=== PATIENT | male | born 1955 | race Two or more races ===

== ENCOUNTER → 2017-02-14 | Outpatient (CLI) | payer OTHER ==
[~2017-02-14] MED LIST: LISI40TA OR
== END | disposition home or self-care (01) ==
LOC: LAB 07:44
DX: R19.7 Diarrhea, unspecified (principal)
CPT/HCPCS: 87045; 87177; 87899

== ENCOUNTER → 2017-03-30 | Outpatient (CLI) | payer OTHER ==
[2017-03-30 07:43] LABS: Basophils # (auto) 0 uL; Basophils % (auto) 0.3 % (0.0-2.0); Eosinophils # (auto) 0.1 uL; Eosinophils % (auto) 1.1 % (0.0-7.0); Hematocrit 44.1 % (41.0-53.0); Lymphocytes # (auto) 1.7 uL; Lymphocytes % (auto) 25.4 % (10.0-50.0); Mean Corpuscular Hemoglobin 28.5 pg (28.0-32.0); Mean Corpuscular Hgb Conc. 34.1 g/dL (32.0-36.0); Mean Corpuscular Volume 83.6 fL (80.0-100.0); Monocytes # (auto) 0.6 uL; Monocytes % (auto) 9.6 % (0.0-12.0); Neutrophils # (auto) 4.2 uL; Neutrophils % (auto) 63.6 % (37.0-80.0); Nucleated Red Blood Cells % 0.3 %; Platelet Count (auto) 151 10^3/uL (140-450); Red Blood Cells 5.28 10^6/uL (4.5-5.90); Red Cell Distribution Width 13.1 % (11.8-14.3); White Blood Cell 6.6 10^3/uL (4.4-10.8)
[2017-03-30 08:24] LABS: Albumin 3.7 g/dL (3.4-5.0); BUN/Creatinine Ratio 14.2; Bilirubin, Total 0.6 mg/dL (0.2-1.0); Calcium 8.9 mg/dL (8.5-10.1); Potassium 3.9 mmol/L (3.5-5.1); Total Protein 7.8 g/dL (6.4-8.2)
[2017-03-30 09:01] LABS: Urine Bacteria NONE SEEN /hpf (None Seen); Urine Blood Negative /uL (Negative); Urine Mucus FEW (None Seen); Urine WBC <1 /hpf (0 - 3)
[2017-03-30 11:55] LABS: Free T4 (Free Thyroxine) 1.19 ng/dL (0.89-1.76)
[2017-03-30 11:56] LABS: Prostate Specific Antigen 1.75 ng/mL (0.0-4.0)
== END | disposition home or self-care (01) ==
LOC: LAB 06:17
PROVIDERS: ATTEND Internal Medicine
DX: E11.9 Type 2 diabetes mellitus without complications (principal); I10 Essential (primary) hypertension; N40.0 Benign prostatic hyperplasia without lower urinary tract symptoms
CPT/HCPCS: 36415; 80053; 80061; 81001; 82043; 82607; 83036; 84153; 84439; 84443; 85025; 85652; 86900; 86901

== ENCOUNTER → 2017-09-20 | Outpatient (CLI) | payer OTHER | END | disposition home or self-care (01) | LOC: LAB 07:14 | PROVIDERS: ATTEND Internal Medicine | DX: E11.9 Type 2 diabetes mellitus without complications (principal); I10 Essential (primary) hypertension | CPT/HCPCS: 36415; 83036 ==

== ENCOUNTER → 2017-12-31 | Outpatient (CLI) | payer OTHER ==
[2017-12-31 08:49] LABS: Calcium 8.4 mg/dL (8.5-10.1); Potassium 4.2 mmol/L (3.5-5.1)
[2017-12-31 08:54] LABS: Albumin 3.6 g/dL (3.4-5.0); BUN/Creatinine Ratio 17.3; Bilirubin, Total 0.5 mg/dL (0.2-1.0); Total Protein 7.4 g/dL (6.4-8.2)
== END | disposition home or self-care (01) ==
LOC: LAB 07:31
PROVIDERS: ATTEND Internal Medicine
DX: E11.9 Type 2 diabetes mellitus without complications (principal); I10 Essential (primary) hypertension
CPT/HCPCS: 36415; 80053; 83036

== ENCOUNTER → 2018-04-29 | Outpatient (CLI) | payer OTHER ==
[2018-04-29 07:40] LABS: Urine WBC None Seen /hpf (0 - 3)
[2018-04-29 07:55] LABS: Basophils # (auto) 0 uL; Basophils % (auto) 0.4 % (0.0-2.0); Eosinophils # (auto) 0.1 uL; Eosinophils % (auto) 1.7 % (0.0-7.0); Hematocrit 43.8 % (41.0-53.0); Hemoglobin 14.8 g/dL (13.5-17.5); Lymphocytes # (auto) 1.6 uL; Mean Corpuscular Hemoglobin 28.9 pg (28.0-32.0); Mean Corpuscular Hgb Conc. 33.8 g/dL (32.0-36.0); Mean Corpuscular Volume 85.6 fL (80.0-100.0); Monocytes # (auto) 0.5 uL; Monocytes % (auto) 8.7 % (0.0-12.0); Neutrophils # (auto) 3.3 uL; Neutrophils % (auto) 60.2 % (37.0-80.0); Nucleated Red Blood Cells % 0.2 %; Platelet Count (auto) 134 10^3/uL (140-450); Red Blood Cells 5.11 10^6/uL (4.5-5.90); Red Cell Distribution Width 14.5 % (11.8-14.3); White Blood Cell 5.5 10^3/uL (4.4-10.8)
[2018-04-29 08:13] LABS: Urine Bacteria NONE SEEN /hpf (None Seen); Urine Blood Negative /uL (Negative); Urine Specific Gravity 1.012 (1.001-1.035)
[2018-04-29 08:30] LABS: Albumin 3.6 g/dL (3.4-5.0); BUN/Creatinine Ratio 10.3; Calcium 8.8 mg/dL (8.5-10.1); Potassium 4.4 mmol/L (3.5-5.1)
[2018-04-29 08:35] LABS: Bilirubin, Total 0.4 mg/dL (0.2-1.0); Total Protein 7.7 g/dL (6.4-8.2)
[2018-04-29 10:06] LABS: Free T4 (Free Thyroxine) 1.03 ng/dL (0.89-1.76); Prostate Specific Antigen 2.13 ng/mL (0.0-4.0)
== END | disposition home or self-care (01) ==
LOC: LAB 07:17
PROVIDERS: ATTEND Internal Medicine
DX: E53.8 Deficiency of other specified B group vitamins (principal); E11.21 Type 2 diabetes mellitus with diabetic nephropathy; I10 Essential (primary) hypertension
CPT/HCPCS: 36415; 80053; 80061; 81001; 82043; 82607; 83036; 84153; 84439; 84443; 85025; 85652

== ENCOUNTER → 2018-11-08 | Outpatient (CLI) | payer OTHER ==
[2018-11-08 08:55] LABS: Potassium 4.2 mmol/L (3.5-5.1)
[2018-11-08 09:01] LABS: Albumin 3.8 g/dL (3.4-5.0); BUN/Creatinine Ratio 12.3; Bilirubin, Total 0.8 mg/dL (0.2-1.0); Total Protein 7.3 g/dL (6.4-8.2)
== END | disposition home or self-care (01) ==
LOC: LAB 08:07
PROVIDERS: ATTEND Internal Medicine
DX: E11.9 Type 2 diabetes mellitus without complications (principal); E53.8 Deficiency of other specified B group vitamins
CPT/HCPCS: 36415; 80053; 82607; 82785; 83036; 83615

== ENCOUNTER 2018-12-26 22:03 | Inpatient (IN) | payer OTHER, MEDICAID ==
[2018-12-26] VITALS (11 sets, daily range): BP systolic 85–130; BP diastolic 47–75
[~2018-12-26] VITALS: Ht 182.9 cm; Wt 79.2 kg
--- NOTE | 2018-12-26 21:35 | NUR ---
Admit to ICU from ER on vent CHARLIE TAO admitted to ICU via gurney on front desk monitor, intubated and being ventilated by BANNER portable ventilator. Patient transfered to bed, connected to mechanical ventilator by therapist, ANDRIY at bedside. Patient connected to ICU monitoring, weighed by bedscale, oriented to Fly Mcdermott RN primary RN, unit, ventilator and sedation.
--- NOTE | 2018-12-26 21:55 | NUR ---
Admission Assessment Patient has a trach, 6 Margaret vent settings are AC 14 tv550 FIO2 35 peep of 5. Patient opens eyes and withdrawals to pain but does not follow commands, on no sedation. Eyes are 3 and fixed. positive gag and cough. NSR 78 and BP 95/48 no pressures. RT hand 22g and LT food 20g flushed and patent. Rash noted to bulmaro-area. right scalp incision site has 9 chip. right ear incision site has 3 chip. both clean dry and intact. peg tube in place, clean dry and patent. for more information see interventions. bed set to lowest position. all fall and safety precautions in place.
--- NOTE | 2018-12-26 22:00 | NUR ---
Paged Hospitalist for admission
--- NOTE | 2018-12-26 22:15 | NUR ---
Family at bedside Patsy and 5 other family members at bedside, updated on patient status. all questions addressed at this time.
--- NOTE | 2018-12-26 22:30 | NUR ---
Re-paged Hospitalist.
--- NOTE | 2018-12-26 23:36 | NUR ---
[employer] PRODUCER east at bedside updated on patient status
[2018-12-26] MEDS ORDERED: cefTAZidime 1 GM in SODIUM CHL 0.9% 50 ML IV ONE (23:45)
[2018-12-27] VITALS (98 sets, daily range): BP systolic 83–162; BP diastolic 48–91
[2018-12-27] MEDS ORDERED: DEXTROSE (50%) 50ML SYRG IV PRN
[2018-12-27] MEDS ORDERED: MORPHINE SULF INJ 2 MG/ML SYRINGE 1ML IV PRN
[2018-12-27] MEDS ORDERED: ONDANSETRON HCL 4 MG/2 ML VIAL IV PRN
[2018-12-27] MEDS ORDERED: NITROGLYCERIN 0.4 MG SL TAB SL PRN
[2018-12-27] MEDS ORDERED: ACETAMINOPHEN 325 MG TAB PO PRN
[2018-12-27 00:53] LABS: Basophils # (auto) 0 uL; Basophils % (auto) 0.2 % (0.0-2.0); Eosinophils # (auto) 0.2 uL; Eosinophils % (auto) 1.8 % (0.0-7.0); Hematocrit 27.8 % (41.0-53.0); Hemoglobin 9.4 g/dL (13.5-17.5); Lymphocytes # (auto) 1.2 uL; Lymphocytes % (auto) 11.5 % (10.0-50.0); Mean Corpuscular Hemoglobin 30.2 pg (28.0-32.0); Mean Corpuscular Hgb Conc. 33.7 g/dL (32.0-36.0); Mean Corpuscular Volume 89.6 fL (80.0-100.0); Monocytes # (auto) 0.7 uL; Monocytes % (auto) 6.8 % (0.0-12.0); Neutrophils # (auto) 8.5 uL; Neutrophils % (auto) 79.7 % (37.0-80.0); Nucleated Red Blood Cells % 0.1 %; Platelet Count (auto) 140 10^3/uL (140-450); Red Cell Distribution Width 14.5 % (11.8-14.3); White Blood Cell 10.7 10^3/uL (4.4-10.8)
[2018-12-27] MEDS: InsuLIN REG 1unit/0.01ml Soln (100units/ml) SC SCH ×7 (00:55→23:30)
[2018-12-27] MEDS: ACCU-CHEK COMFORT CURVE STRIP VI SCH ×7 (00:55→23:30)
[2018-12-27 01:08] LABS: INR 1.02 (0.9-1.15); Partial Thromboplastin Time 29.3 sec (23.64-32.05)
[2018-12-27 01:11] LABS: Albumin 1.9 g/dL (3.4-5.0); BUN/Creatinine Ratio 31.9; Calcium 7.9 mg/dL (8.5-10.1); Potassium 3.9 mmol/L (3.5-5.1)
[2018-12-27 01:14] LABS: Bilirubin, Total 0.4 mg/dL (0.2-1.0); Total Protein 6.7 g/dL (6.4-8.2)
[2018-12-27] MEDS ORDERED: METF-371 PO (02:11)
[2018-12-27] MEDS ORDERED: METO-169 PO (02:11)
[2018-12-27] MEDS ORDERED: LOSA-39 PO (02:11)
[2018-12-27] MEDS ORDERED: HYDR50TA15 PO (02:12)
[2018-12-27] MEDS: cloNIDine HCL 0.1 MG TAB PEG SCH ×3 (05:55→21:43)
--- NOTE | 2018-12-27 07:34 | NUR ---
Dr. Trejo at bedside.
[2018-12-27] MEDS: ALBUTEROL SULF 2.5 MG/0.5ML(0.5%) NEB SOLN NEB SCH ×3 (08:00→18:30)
--- NOTE | 2018-12-27 08:25 | NUR ---
Patient transported to and from CT accompanied by the radiology nurse Coby, and RT. No distress noted.
--- NOTE | 2018-12-27 09:15 | NUR ---
Midline Placement: 18g/10cm midline inserted via right brachial vein using Ultrasound. Sterile technique utilized. Blood return obtained from lumen and flushed easily with NS using proper technique. Midline secured with saline lock; biodisc and occlusive dressing applied. Primary RN notified. Midline lot #[id number]
[2018-12-27] MEDS: cefTAZidime 2GM/NS 50 ML IV SCH ×3 (09:20→21:43)
[2018-12-27] MEDS: LOSARTAN POTASSIUM 25 MG TAB PEG SCH (09:25)
[2018-12-27] MEDS: ENOXAPARIN SOD 40 MG/0.4 ML SYRINGE SC SCH (09:25)
[2018-12-27] MEDS: HCTZ 25 MG TAB PEG SCH (09:25)
[2018-12-27] MEDS: FAMOTIDINE (10MG/ML) 2ML VL IV SCH (09:25)
[2018-12-27] MEDS: amLODIPine BESYLATE 5 MG TAB PEG SCH (09:25)
--- NOTE | 2018-12-27 11:41 | NUR ---
Dr. Elliott at bedside.
[2018-12-27] MEDS ORDERED: ACETAMINOPHEN 650 mg PER 20 mL UD ONE (11:48)
[2018-12-27] MEDS: ACETAMINOPHEN 650 mg PER 20 mL UD GT PRN ×2 (11:48→23:27)
--- NOTE | 2018-12-27 11:48 | NUR ---
Max temperature 100.1, Tylenol 650mg given per PRN orders.
--- NOTE | 2018-12-27 12:53 | NUR ---
Dr. Velez updated regarding patients status.
--- NOTE | 2018-12-27 12:53 | NUR ---
Complete bath given. Linens and gown changed.
--- NOTE | 2018-12-27 13:10 | NUR ---
Family at bedside.
[2018-12-27] MEDS ORDERED: FUROSEMIDE 20 MG/2 ML VIAL IV ONE (13:15)
--- NOTE | 2018-12-27 15:15 | NUR ---
ETCO2 MONITORING BEGAN AND READING 38.
--- NOTE | 2018-12-27 19:25 | NUR ---
Open Shift Patient has a trach, 6 Margaret vent settings are AC 14 tv550 FIO2 35 peep of 5. Patient opens eyes and withdrawals to pain but does not follow commands, on no sedation. Eyes are 3 and fixed. positive gag and cough. NSR 90's and SBP 110's no pressures. RT wrist 22g and Right upper arm Midline flushed and patent. Right scalp incision site has 9 chip. right ear incision site has 3 chip. both clean dry and intact. peg tube in place, clean dry and patent. for more information see interventions. bed set to lowest position. all fall and safety precautions in place.
--- NOTE | 2018-12-27 20:24 | NUR ---
orders received md lópez request to obtain consent for now central line and change lasix to 60mg bid Addendum: 12/27/18 at 2044 by Fly Mcdermott RN RN wrong patient
--- NOTE | 2018-12-27 20:30 | NUR ---
family at bedside updated on patient status, question addressed at this time.
--- NOTE | 2018-12-27 21:07 | NUR ---
received call from md lópez updated on patient status, new orders received.
[2018-12-27 22:05] LABS: Urine Bacteria NONE SEEN /hpf (None Seen); Urine Blood Negative /uL (Negative); Urine Mucus FEW (None Seen); Urine Specific Gravity 1.018 (1.001-1.035); Urine WBC 16 /hpf (0 - 3)
[2018-12-28] VITALS (57 sets, daily range): BP systolic 100–173; BP diastolic 55–90
[2018-12-28] MEDS: ALBUTEROL SULF 2.5 MG/0.5ML(0.5%) NEB SOLN NEB SCH ×3 (00:05→18:12)
--- NOTE | 2018-12-28 02:05 | NUR ---
Complete bed bath given used chg wipes, soap and water, and shampoo shower caps to clean patient. reassessed skin and no new break down noted.
--- NOTE | 2018-12-28 02:53 | NUR ---
Respiratory note: TRACH CARE PERFORMED WITH NO COMPLCIATIONS NOTED. NO SKIN BREAKDOWN NOTED. 4EYES OBSERVED BY PATRICIA BLAND. CHANGED KIRKPATRICK, TRACH GAUZE, INNER CANNULA, AND TRACH TIE. NO SKIN BREAKDOWN AROUND NECK. BS REMAIN COARSE. SXN WITH RETURN OF SCANT PALE/YELLOW SECRETIONS. SPO2 95%. HR 60, RR 14. NO RESP DISTRESS NOTED.
[2018-12-28] MEDS: InsuLIN REG 1unit/0.01ml Soln (100units/ml) SC SCH ×5 (03:58→20:00)
[2018-12-28] MEDS: ACCU-CHEK COMFORT CURVE STRIP VI SCH ×5 (03:58→20:09)
[2018-12-28 04:08] LABS: Basophils # (auto) 0 uL; Basophils % (auto) 0.5 % (0.0-2.0); Eosinophils # (auto) 0.3 uL; Eosinophils % (auto) 3.8 % (0.0-7.0); Hematocrit 28.3 % (41.0-53.0); Hemoglobin 9.5 g/dL (13.5-17.5); Lymphocytes # (auto) 1.1 uL; Mean Corpuscular Hemoglobin 29.9 pg (28.0-32.0); Mean Corpuscular Hgb Conc. 33.7 g/dL (32.0-36.0); Mean Corpuscular Volume 88.8 fL (80.0-100.0); Monocytes # (auto) 0.7 uL; Monocytes % (auto) 8.7 % (0.0-12.0); Neutrophils # (auto) 5.7 uL; Platelet Count (auto) 145 10^3/uL (140-450); Red Blood Cells 3.19 10^6/uL (4.5-5.90); Red Cell Distribution Width 14.5 % (11.8-14.3); White Blood Cell 7.8 10^3/uL (4.4-10.8)
[2018-12-28 04:27] LABS: Albumin 2.1 g/dL (3.4-5.0); BUN/Creatinine Ratio 35.5
[2018-12-28 04:29] LABS: Bilirubin, Total 0.5 mg/dL (0.2-1.0)
[2018-12-28] MEDS: cefTAZidime 2GM/NS 50 ML IV SCH ×3 (06:39→22:19)
[2018-12-28] MEDS: cloNIDine HCL 0.1 MG TAB PEG SCH ×3 (06:39→22:20)
--- NOTE | 2018-12-28 09:42 | NUR ---
DR. LOPEZ PAGED AWAITING CALLBACK
[2018-12-28] MEDS: FAMOTIDINE (10MG/ML) 2ML VL IV SCH (09:47)
[2018-12-28] MEDS: LOSARTAN POTASSIUM 25 MG TAB PEG SCH (09:48)
[2018-12-28] MEDS: HCTZ 25 MG TAB PEG SCH (09:48)
[2018-12-28] MEDS: amLODIPine BESYLATE 5 MG TAB PEG SCH (09:48)
[2018-12-28] MEDS: CYANOCOBALAMIN 500 MCG TAB PO SCH (09:49)
[2018-12-28] MEDS: ENOXAPARIN SOD 40 MG/0.4 ML SYRINGE SC SCH (10:00)
--- NOTE | 2018-12-28 10:09 | NUR ---
FAMILY AND DAUGHTER AT BEDSIDE. UPDATED ON PATIENT STATUS. ALL QUESTIONS AND CONCERNS ADDRESSED AT THIS TIME
--- NOTE | 2018-12-28 10:46 | NUR ---
BENEDICTX PER DR. LOPEZ HOLD LOVENOX AT THIS TIME
[2018-12-28] MEDS ORDERED: Glucerna 1.2 Cal 1Liter BOTTLE GT SCH (12:00)
[2018-12-28] MEDS ORDERED: METOPROLOL TARTRATE 1MG/1ML-5ML VIAL IV PRN (13:00)
--- NOTE | 2018-12-28 13:10 | NUR ---
WOUND CARE NOTE: Wound care in to see patient due to Low Duong score of 11 and wounds that are noted present on admission. Bedside nurse took photograph of patient's wounds upon admission for reference. Patient is 63 y/o male with admitting diagnosis of ICH. Patient with history of htn and DM. Patient is resting in ICU bed in 101. Patient is mechanically ventilated via trach. Patient appears to be in no pain using Cordero rangel Faces pain Scale. Patient noted with clean, dry, well approximated stapled incision to R head/scalp (3x3cm with 9 chip) and R posterolateral head/scalp just behind the ear (1.5cm with 3 chip). Wounds are clean and dry with intact chip, left open to air. 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 Dry linear, small scab (0.5x0.3cm) noted to patent's Rt lateral ankle,mild rashes to inner thigh. No pressure injury noted. Repositioned patient for comfort facing his left side, redistributed pressure points with pillows. Patient tolerated well. RECOMMENDATION: BID/PRN cleaning and application Barrier cream to sacrum and perineum as preventative, Dietary consult, frequent turning and repositioning schedule as condition permits, redistribute pressure points with pillows,elevate heels on pillows, continue monitoring by wound care while patient is hospitalized. Addendum: 12/28/18 at 1755 by Shikha Rogers RN Amended: Links added.
[2018-12-28] MEDS ORDERED: METOPROLOL TARTRATE 1MG/1ML-5ML VIAL IV SCH (14:00)
--- NOTE | 2018-12-28 15:21 | NUR ---
NUTRITION CONSULT/ASSESSMENT NOTES Please refer to link notes of nutrition screen form filed under the intervention section of the plan of care for further details. Est. Needs BW 96 [id number] kcal (23-25 kcal/kgBW), 96-115 gms pro (1.0-1.2 gms/kgBW d/t severe hypoalbuminemia). Will continue to monitor pertinent labs and reassess nutrient need prn Addendum: 12/28/18 at [address] Amended: Links added.
--- NOTE | 2018-12-28 15:35 | NUR ---
PATIENT TAKEN FOR CT SCAN
--- NOTE | 2018-12-28 16:01 | NUR ---
PATIENT BACK FROM CT PLACED ON ALL APPROPRIATE MONITORS
--- NOTE | 2018-12-28 16:58 | NUR ---
AGUSTINA RIZVI USING STERILE TECHNIQUE Addendum: 12/28/18 at 1726 by Otilio Rey RN WRONG PATIENT
--- NOTE | 2018-12-28 17:17 | NUR ---
URINE CULTURE SENT VIA BULLET
[2018-12-28] MEDS: FUROSEMIDE 40 MG TAB GT SCH (17:46)
[2018-12-28 18:26] LABS: Creatinine, Urine 67 mg/dL (30.0-125.0); Sodium Urine 127 mmol/L (40-220)
--- NOTE | 2018-12-28 19:09 | NUR ---
REPORT GIVEN TO IRAIS BLAND TO ASSUME CARE
--- NOTE | 2018-12-28 20:00 | NUR ---
RECIEVED PT VENTED VIA TRACH,NO SEDATION, EYES OPEN, DIFFICULT TO DETERMINE IF TRACKING OR NOT, DOES NOT FOLLOW COMMANDS, BITES DOWN DURING ORAL CARE, NO LIMB MOVEMENT, REPOSITIONED, SEE INTERVENTIONS FOR HEAD TO TOE ASSESSMENT AND VITAL SIGNS, AT BEDSIDE , UPDATE GIVEN
[2018-12-28] MEDS: ATORVASTATIN 20 MG TAB PO SCH (22:20)
[2018-12-29] VITALS (33 sets, daily range): BP systolic 102–219; BP diastolic 59–102
[2018-12-29] MEDS: ALBUTEROL SULF 2.5 MG/0.5ML(0.5%) NEB SOLN NEB SCH ×4 (00:04→18:32)
--- NOTE | 2018-12-29 02:00 | NUR ---
COMPLETE BATH GIVEN AND LINEN CHANGE,EYES OPEN, NO NEURO CHANGES, NO VENT CHANGES
[2018-12-29] MEDS: InsuLIN REG 1unit/0.01ml Soln (100units/ml) SC SCH ×6 (04:00→20:00)
[2018-12-29] MEDS: ACCU-CHEK COMFORT CURVE STRIP VI SCH ×6 (04:00→20:00)
[2018-12-29 04:35] LABS: Albumin 2.1 g/dL (3.4-5.0); Calcium 8.3 mg/dL (8.5-10.1); Potassium 3.8 mmol/L (3.5-5.1)
[2018-12-29 04:39] LABS: BUN/Creatinine Ratio 37.6; Bilirubin, Total 0.4 mg/dL (0.2-1.0); Total Protein 6.9 g/dL (6.4-8.2)
[2018-12-29] MEDS: cefTAZidime 2GM/NS 50 ML IV SCH ×3 (06:29→21:46)
[2018-12-29] MEDS: cloNIDine HCL 0.1 MG TAB PEG SCH ×3 (06:30→21:46)
--- NOTE | 2018-12-29 07:00 | NUR ---
REPORT RECEIVED FROM ORIENTOR NURSE. PATIENT RESTING IN BED AT THIS TIME WITH TRACH. RESPIRATIONS EVEN AND UNLABORED. NO SIGNS OF ACUTE DISTRESS NOTED. BED IN LOW POSITION. WILL CONTINUE TO MONITOR.
--- NOTE | 2018-12-29 09:45 | NUR ---
DR MALIK AT BEDSIDE TO ASSESS PATIENT AND DISCUSS PLAN OF CARE. NO NEW ORDERS AT THIS TIME.
--- NOTE | 2018-12-29 10:07 | NUR ---
DR LOPEZ AT BEDSIDE TO ASSESS PATIENT AND DISCUSS PLAN OF CARE. NO NEW ORDERS AT THIS TIME.
[2018-12-29] MEDS: FUROSEMIDE 40 MG TAB GT SCH (10:09)
[2018-12-29] MEDS: FAMOTIDINE (10MG/ML) 2ML VL IV SCH (10:09)
[2018-12-29] MEDS: amLODIPine BESYLATE 5 MG TAB PEG SCH (10:10)
[2018-12-29] MEDS: LOSARTAN POTASSIUM 25 MG TAB PEG SCH (10:10)
[2018-12-29] MEDS: CYANOCOBALAMIN 500 MCG TAB PO SCH (10:41)
--- NOTE | 2018-12-29 11:01 | NUR ---
DR SAHU AT BEDSIDE TO ASSESS PATIENT AND DISCUSS PLAN OF CARE.
--- NOTE | 2018-12-29 11:02 | NUR ---
DR MALIK AT BEDSIDE TO ASSESS PATIENT AND DISCUSS PLAN OF CARE. NO NEW ORDERS AT THIS TIME. Addendum: 12/29/18 at 2000 by Lynnette Burns RN WRONG PATIENT
--- NOTE | 2018-12-29 11:02 | NUR ---
DR TEJEDA AT BEDSIDE TO ASSESS PATIENT AND DISCUSS PLAN OF CARE. NO NEW ORDERS AT THIS TIME.
[2018-12-29] MEDS: ATORVASTATIN 20 MG TAB PO SCH (21:46)
[2018-12-30] VITALS (27 sets, daily range): BP systolic 72–210; BP diastolic 57–99
[2018-12-30] MEDS: ALBUTEROL SULF 2.5 MG/0.5ML(0.5%) NEB SOLN NEB SCH ×4 (00:01→18:25)
[2018-12-30 03:41] LABS: Basophils # (auto) 0 uL; Basophils % (auto) 0.3 % (0.0-2.0); Eosinophils # (auto) 0.2 uL; Eosinophils % (auto) 3.9 % (0.0-7.0); Hemoglobin 9.9 g/dL (13.5-17.5); Lymphocytes # (auto) 1.2 uL; Lymphocytes % (auto) 18.2 % (10.0-50.0); Mean Corpuscular Hgb Conc. 34.3 g/dL (32.0-36.0); Mean Corpuscular Volume 87.6 fL (80.0-100.0); Monocytes # (auto) 0.6 uL; Monocytes % (auto) 8.9 % (0.0-12.0); Neutrophils # (auto) 4.4 uL; Neutrophils % (auto) 68.7 % (37.0-80.0); Nucleated Red Blood Cells % 0.1 %; Platelet Count (auto) 161 10^3/uL (140-450); Red Blood Cells 3.31 10^6/uL (4.5-5.90); Red Cell Distribution Width 14.2 % (11.8-14.3); White Blood Cell 6.4 10^3/uL (4.4-10.8)
[2018-12-30 03:52] LABS: Albumin 2.2 g/dL (3.4-5.0); BUN/Creatinine Ratio 35.2; Calcium 8.2 mg/dL (8.5-10.1)
[2018-12-30 03:54] LABS: Bilirubin, Total 0.3 mg/dL (0.2-1.0); Total Protein 7.1 g/dL (6.4-8.2)
[2018-12-30] MEDS: InsuLIN REG 1unit/0.01ml Soln (100units/ml) SC SCH ×6 (04:00→20:31)
[2018-12-30] MEDS: ACCU-CHEK COMFORT CURVE STRIP VI SCH ×6 (04:00→20:30)
[2018-12-30] MEDS: cefTAZidime 2GM/NS 50 ML IV SCH ×2 (05:01→14:06)
[2018-12-30] MEDS: cloNIDine HCL 0.1 MG TAB PEG SCH ×3 (05:52→21:41)
--- NOTE | 2018-12-30 07:25 | NUR ---
SHIFT OPENING NOTE PATIENT ON MECHANICAL VENTILATOR WITH TRACHEOSTOMY, NO SEDATION AT THIS TIME. PUPILS 3 AND FIXED, HYPERACTIVE COUGH AND GAG REFLEX, 02 SATURATION 97%, NO VASOPRESSORS AT THIS TIME. ABDOMEN ROUND, SOFT, AND NONTENDER, BERRIOS DRAINING CLEAR, YELLOW URINE WITH BAG FREE OF KINKS AND HUNG BELOW BLADDER, SCD'S BILATERALLY TO LOWER EXTREMITIES, SKIN INTEGRITY SEE ASSESSMENT
[2018-12-30] MEDS: CYANOCOBALAMIN 500 MCG TAB PO SCH (10:00)
[2018-12-30] MEDS: amLODIPine BESYLATE 5 MG TAB PEG SCH (10:01)
[2018-12-30] MEDS: FAMOTIDINE (10MG/ML) 2ML VL IV SCH (10:01)
[2018-12-30 10:02] LABS: Free T4 (Free Thyroxine) 0.59 ng/dL (0.89-1.76)
[2018-12-30] MEDS: FUROSEMIDE 40 MG TAB GT SCH (10:02)
[2018-12-30] MEDS: LOSARTAN POTASSIUM 25 MG TAB PEG SCH (10:02)
[2018-12-30 10:03] LABS: Folate (Folic Acid) 13.42 ng/mL (5.38-24)
--- NOTE | 2018-12-30 12:02 | NUR ---
Nutrition Follow-up Notes Wt.: 98.0 kg today. Pt's on vent via trach, asleep, no immediate family member at bedside during rounds earlier. Pt's no signs of distress noted earlier, currently NPO with EN support of Glucerna 1.2 Roberto @ 70 ml/hr via PEG tube providing 2016 kcal, 101 gms pro and 1352 ml free water, tolerates feeing had 25 ml residuals noted by RN this morning. Pt with adequate EN support d/t high initiation rate delivery of concentrated formula aeb current EN infusion meets 84% to 91% of est caloric needs and 88% to 105% of est caloric needs. Noted pt's for active Pulmonary and Neurology consults. Est. Needs BW 96 [id number] kcal (23-25 kcal/kgBW), 96-115 gms pro (1.0-1.2 gms/kgBW d/t severe hypoalbuminemia). Will continue to monitor pertinent labs and reassess nutrient need prn Labs: Gluc 168 H, BUN 38 H, Ca 8.2 L, Alb 2.2 L. Skin: Duong scale 12, high risk, pt's right scalp incision dry and intact per documentation spec. Pls refer to latest emery grinder's notes for further details re: tx plans. GI: Pt's no bowel activity since 12/26/18 per documentation spec. PES: Increased nutrient needs r/t acute/chronic medical condition aeb with trach, severe hypoalbuminemia, NPO with EN support via PEG tube Altered nutrition related lab values r/t current/chronic medical condition aeb elev BUN, hypocalcemia, hyperglceymia and severe hypoalb Will continue to monitor NPO status, EN tolerance, skin status, pertinent labs and weight trend. F/u in 2 to 3 days. Rec.: 1.) If still NPO with EN support, consider Glucerna 1.2 Roberto @ 75 ml/hr goal rate as tolerated if medically appropriate. 2.) If Albumin continues trending down, consider Prostat 1 pkt BID. 3.) Consider daily MVI with minerals and Asc acid 500 mgs BID prn. 4.) Advance gradually to oral diet when medically appropriate. 5.) Refer pt to CDE/RD for further nutrition education and weight monitoring upon discharge. 5.) Continue current plan of care.
--- NOTE | 2018-12-30 12:10 | NUR ---
DR. WATERS AT BEDSIDE SPOKE WITH IN GREAT DETAIL WITH ASSISTANCE FROM [facility]. PER JUANITO SHE WOULD LIKE MORE INFORMATION REGARDING HOSPICE CARE
--- NOTE | 2018-12-30 12:51 | NUR ---
PARTIAL LINEN CHANGE PERFORMED AT THIS TIME
[2018-12-30] MEDS: ERGOCALCIFEROL 50,000 UNIT(1.25MG) CAP PO SCH (12:55)
--- NOTE | 2018-12-30 14:35 | NUR ---
DR. LOPEZ AT BEDSIDE
[2018-12-30] MEDS: MEROPENEM 1GM IVPB 100 ML IV SCH (17:18)
--- NOTE | 2018-12-30 17:53 | NUR ---
REPORT GIVEN TO OMAR BLAND TO ASSUME CARE
--- NOTE | 2018-12-30 18:15 | NUR ---
HOSPICE AT BEDSIDE
--- NOTE | 2018-12-30 18:15 | NUR ---
JUANITO UPDATED PATIENTS MOVING TO ROOM 266
--- NOTE | 2018-12-30 18:20 | NUR ---
PATIENT TRANSFERRED TO ROOM 266 VIA ACLS GUIDELINES
--- NOTE | 2018-12-30 18:25 | NUR ---
PATIENT RECEIVED Patient received with RN AND RT bedside. Patient is in bed, trached, with the ventilator next to him. Patients lungs are clear on auscultation, pupils are 3mm fixed, patient has chip on his scalp, 3 behind his right ear and 9 on the top of right side, as well as 10 chip on his abd.
--- NOTE | 2018-12-30 19:21 | NUR ---
Open Shift Patient has a trach, in no signs of respiratory distress. Opens eyes and withdrawals to pain but does not follow commands, on no sedation. Eyes are 3 and fixed. positive gag and cough. NSR 60's and SBP 140's no pressures. RT wrist 22g and Right upper arm Midline flushed and patent. peg tube in place, clean dry and patent running Jevity at 70 with no residual. For more information see interventions. bed set to lowest position. all fall and safety precautions in place.
--- NOTE | 2018-12-30 19:21 | NUR ---
CLOSING Report given to Erick BLAND.
--- NOTE | 2018-12-30 20:00 | NUR ---
at bedside updated on patient status, all questions addressed at this time.
[2018-12-30] MEDS: ATORVASTATIN 20 MG TAB PO SCH (21:40)
[2018-12-31] VITALS (30 sets, daily range): BP systolic 101–181; BP diastolic 54–98
[2018-12-31] MEDS: ALBUTEROL SULF 2.5 MG/0.5ML(0.5%) NEB SOLN NEB SCH ×4 (00:07→19:37)
[2018-12-31] MEDS: ACCU-CHEK COMFORT CURVE STRIP VI SCH ×6 (00:28→20:00)
[2018-12-31] MEDS: InsuLIN REG 1unit/0.01ml Soln (100units/ml) SC SCH ×6 (00:28→20:00)
[2018-12-31] MEDS: MEROPENEM 1GM IVPB 100 ML IV SCH ×4 (01:00→17:33)
--- NOTE | 2018-12-31 03:21 | NUR ---
bed bath given Full bed bath given. skin reassessed and no new break down noted.
[2018-12-31] MEDS: cloNIDine HCL 0.1 MG TAB PEG SCH ×3 (06:04→22:00)
[2018-12-31 06:44] LABS: Albumin 2.3 g/dL (3.4-5.0); Calcium 8.7 mg/dL (8.5-10.1); Potassium 3.9 mmol/L (3.5-5.1)
[2018-12-31 06:47] LABS: Bilirubin, Total 0.3 mg/dL (0.2-1.0); Total Protein 7.1 g/dL (6.4-8.2)
--- NOTE | 2018-12-31 07:10 | NUR ---
OPENING NOTE RECEIVED SHIFT REPORT AND ASSUMED CARE OF PT FROM PATRICIA BLAND
--- NOTE | 2018-12-31 09:05 | NUR ---
assessment Patient is a 63 year old male. Per patients daughter Soraya prior to admission patient lived home with family and functioned with assistance. Per Soraya Patient will need more help once discharged home. I informed Soraya via telephone patient has an order for hospice evaluation. Per Soraya Elliott has spoken to her and patients regarding hospice. Dr Elliott has suggested [facility]. I have offered Soraya a list of medicare providers. Per Soraya she wants to speak to [facility]. Bora is to meet with family at bedside at 10am. I will meet with Soraya at bedside to have her sign choice letter. Soraya verbalized understanding and agreed to discharge plan home on hospice. Addendum: 12/31/18 at 1033 by Heaven GIANG Amended: Links added.
[2018-12-31] MEDS: FAMOTIDINE (10MG/ML) 2ML VL IV SCH (10:03)
[2018-12-31] MEDS: CYANOCOBALAMIN 500 MCG TAB PO SCH (10:04)
[2018-12-31] MEDS: LOSARTAN POTASSIUM 25 MG TAB PEG SCH (10:04)
[2018-12-31] MEDS: FUROSEMIDE 40 MG TAB GT SCH (10:05)
[2018-12-31] MEDS: amLODIPine BESYLATE 5 MG TAB PEG SCH (10:05)
[2018-12-31] MEDS ORDERED: CYANOCOBALAMIN 500 MCG TAB PO ONE (12:30)
[2018-12-31] MEDS: ACETAMINOPHEN 650 mg PER 20 mL UD GT PRN (12:43)
--- NOTE | 2018-12-31 15:20 | NUR ---
re-assessment [facility] met with family at bedside. Soraya signed choice letter. Waiting on discharge now. Addendum: 12/31/18 at 1523 by Heaven GIANG Amended: Links added.
--- NOTE | 2018-12-31 19:20 | NUR ---
CLOSING NOTE SHIFT REPORT GIVEN AND CARE ENDORSED TO WAYNE BLAND
--- NOTE | 2018-12-31 19:30 | NUR ---
Opening Shift Note Received pt on mechanical ventilator with shylee trach size 6. Pt not on any sedation, pupils are 3 and fixed. Pt opens eyes spontaneously but does not follow commands. Hyperactive cough/gag seen. Full assessment done see interventions. Duff catheter draining to gravity, secured below bladder and free of kinks. Bed locked in lowest position all alarms on and audible. Pt in full view of RN. No indications of pain noted.
[2018-12-31] MEDS: ATORVASTATIN 20 MG TAB PO SCH (22:03)
[2019-01-01] VITALS (18 sets, daily range): BP systolic 105–178; BP diastolic 4–87
[2019-01-01] MEDS: ALBUTEROL SULF 2.5 MG/0.5ML(0.5%) NEB SOLN NEB SCH ×4 (00:52→19:12)
[2019-01-01] MEDS: MEROPENEM 1GM IVPB 100 ML IV SCH ×3 (01:00→16:47)
[2019-01-01] MEDS: InsuLIN REG 1unit/0.01ml Soln (100units/ml) SC SCH ×6 (04:00→20:36)
[2019-01-01] MEDS: ACCU-CHEK COMFORT CURVE STRIP VI SCH ×6 (04:00→20:32)
--- NOTE | 2019-01-01 05:20 | NUR ---
ELIMINATION PT HAD LARGE SOFT BM. CLEANSED PT AND GAVE FULL BED BATH. LINENS CHANGED. ORAL CARE RENDERED. PT TOLERATED WELL.
[2019-01-01 05:45] LABS: Albumin 2.4 g/dL (3.4-5.0); Calcium 8.6 mg/dL (8.5-10.1)
[2019-01-01 05:50] LABS: BUN/Creatinine Ratio 39.5; Bilirubin, Total 0.3 mg/dL (0.2-1.0); Total Protein 7.2 g/dL (6.4-8.2)
[2019-01-01] MEDS: cloNIDine HCL 0.1 MG TAB PEG SCH ×3 (06:00→21:48)
--- NOTE | 2019-01-01 07:30 | NUR ---
Opening Shift Note Assumed care of patient laying in bed, opens eye spontaneously but not on commands, aphasic. No S/S of distress/SOB or pain. Patient on tracheostomy to mechanical ventilator AC mode, rate 14, TV 550, PEEP 8, FIO2 30%, oxygen saturation 95%. Glucerna running at 75 ml/hr via PEG, patient tolerating well, 5ml residual feeding noted. See interventions for complete assessment. Bed locked on low position, padded side rails up x2, bed alarms on at all times, will continue to monitor for changes Q1hr and PRN.
--- NOTE | 2019-01-01 08:00 | NUR ---
Dr Velez at bedside, updated on patient's status. Patient seen and examined. No new orders at this time.
[2019-01-01] MEDS: FUROSEMIDE 40 MG TAB GT SCH (09:11)
[2019-01-01] MEDS: FAMOTIDINE (10MG/ML) 2ML VL IV SCH (09:11)
[2019-01-01] MEDS: LOSARTAN POTASSIUM 25 MG TAB PEG SCH (09:12)
[2019-01-01] MEDS: CYANOCOBALAMIN 500 MCG TAB PO SCH (09:13)
[2019-01-01] MEDS: amLODIPine BESYLATE 5 MG TAB PEG SCH (09:13)
--- NOTE | 2019-01-01 10:00 | NUR ---
WOUND CARE NOTE: ORDERED SPECIALTY AIR BED AT THIS TIME PREVENTATIVE INTERVENTION. PATIENT TO BE PLACED, PENDING DELIVERY BY JARRETT PARDO. WOUND CARE TEAM WILL CONTINUE TO MONITOR.
--- NOTE | 2019-01-01 12:05 | NUR ---
Patient's temperature 100 axillary, cooling measures done. Will continue to monitor.
--- NOTE | 2019-01-01 12:09 | NUR ---
Patient's Patsy at bedside, updated on patient's status and POC, verbalized understanding. All question and concerns addressed.
--- NOTE | 2019-01-01 12:27 | NUR ---
Nutrition Follow-up Notes Wt.: 95.8 kg today. Pt's on vent via trach, awake, no immediate family member at bedside, no signs of distress noted when rounded this morning. Pt's currently NPO with EN support of Glucerna 1.2 Roberto @ 75 ml/hr via PEG tube providing 2160 kcal, 108 gms pro and 1449 ml free water, tolerates feeding well, had 5 ml residuals noted by RN this morning. Pt with adequate EN support d/t high initiation rate delivery of concentrated formula aeb current EN infusion meets 90% to 98% of est caloric needs and 94% to 113% of est protein needs. Est. Needs BW 96 [id number] kcal (23-25 kcal/kgBW), 96-115 gms pro (1.0-1.2 gms/kgBW d/t severe hypoalbuminemia). Will continue to monitor pertinent labs and reassess nutrient need prn Labs: Gluc 163 H, Na 146 H, Cl 110 H, BUN 45 H; Alb 2.2 L. Skin: Duong scale 12, high risk, pt's medial abdomen incision, right scalp incision dry and intact per windlasser. Pls refer to latest supervisor malt house's notes for further details re: tx plans. GI: Pt had 1 BM this morning per windlasser. PES: Increased nutrient needs r/t acute/chronic medical condition aeb with trach, severe hypoalbuminemia, NPO with EN support via PEG tube Altered nutrition related lab values r/t current/chronic medical condition aeb elev BUN, hypocalcemia, hyperglceymia and severe hypoalb Will continue to monitor NPO status, EN tolerance, skin status, pertinent labs and weight trend. F/u in 2 to 3 days. Rec.: 1.) If still NPO, continue EN support of Glucerna 1.2 Roberto @ 75 ml/hr goal rate as tolerated. 2.) If Albumin continues trending down, consider Prostat 1 pkt BID. 3.) Consider daily MVI with minerals and Asc acid 500 mgs BID prn. 4.) Advance gradually to oral diet when medically appropriate. 5.) Refer pt to CDE/RD for further nutrition education and weight monitoring upon discharge. 6.) Continue current plan of care.
--- NOTE | 2019-01-01 13:15 | NUR ---
Patient's temperature 100.1 F axillary. Will give Tylenol PRN. Will continue to monitor.
[2019-01-01] MEDS: ACETAMINOPHEN 650 mg PER 20 mL UD GT PRN (13:25)
[2019-01-01] MEDS: FREE WATER GT SCH ×3 (13:25→21:48)
--- NOTE | 2019-01-01 13:57 | NUR ---
DR. Perry to see pt and then will decide if she will write d/c order or not
--- NOTE | 2019-01-01 14:45 | NUR ---
Dr Perry at bedside, updated on patient's status. Patient seen and examined. Will carry out new orders.
--- NOTE | 2019-01-01 15:45 | NUR ---
Patient transferred from regular bed to air mattress, fall precaution in place, patient tolerated well.
--- NOTE | 2019-01-01 19:45 | NUR ---
Opening Shift Note Assumed care of patient, opens eyes spontaneously but are not reactive to light. Patient is aphasic, trach and vented. Pt does not follow commands. Left upper abd PEG tube checked for residual , 5cc noted.See interventions for complete assessment.No S/S of distress/SOB or pain. Will continue to monitor for changes Q1hr and PRN.
[2019-01-01] MEDS: ATORVASTATIN 20 MG TAB PO SCH (21:49)
[2019-01-02] VITALS (16 sets, daily range): BP systolic 106–182; BP diastolic 69–96
[2019-01-02] MEDS: ALBUTEROL SULF 2.5 MG/0.5ML(0.5%) NEB SOLN NEB SCH ×4 (00:07→19:21)
[2019-01-02] MEDS: ACCU-CHEK COMFORT CURVE STRIP VI SCH ×6 (00:10→20:07)
[2019-01-02] MEDS: InsuLIN REG 1unit/0.01ml Soln (100units/ml) SC SCH ×6 (00:19→20:07)
[2019-01-02] MEDS: MEROPENEM 1GM IVPB 100 ML IV SCH ×3 (00:20→17:09)
[2019-01-02] MEDS: FREE WATER GT SCH ×6 (02:06→21:15)
--- NOTE | 2019-01-02 02:15 | NUR ---
AM CARE COMPLETE BED BATH PROVIDED USING CHG WIPES AND WARM WASH CLOTHS. BERRIOS CARE AND ORAL CARE PROVIDED. SKIN REASSESSED AT THIS TIME : NO NEW CHANGES, SACRUM REMAINS INTACT. COMPLETE LINEN CHANGE DONE AND NEW GOWN PLACED ON PATIENT. REPOSITIONED IN BED FOR COMFORT.ASPIRATION, FALL, PRESSURE ULCER AND SEIZURE PRECAUTIONS CONTINUED.
--- NOTE | 2019-01-02 04:00 | NUR ---
Mid- Line Dressing Changes Mid line dressing change done with a sterile technique. Cleansed with chloraprep scrub/betadine. Stat lock, and bio-patch as available. Occlusive dressing applied. Patient tolerated well.
[2019-01-02] MEDS: cloNIDine HCL 0.1 MG TAB PEG SCH (06:00)
[2019-01-02 06:29] LABS: Potassium 4.1 mmol/L (3.5-5.1)
[2019-01-02 06:35] LABS: Albumin 2.4 g/dL (3.4-5.0); BUN/Creatinine Ratio 39.8; Calcium 8.7 mg/dL (8.5-10.1)
[2019-01-02 06:45] LABS: Bilirubin, Total 0.3 mg/dL (0.2-1.0); Total Protein 7.7 g/dL (6.4-8.2)
--- NOTE | 2019-01-02 06:54 | NUR ---
END OF SHIFT NOTE PATIENT RESTING IN BED WITH EYES OPEN, CONTINUES TO BE APHASIC NOT FOLLOWING COMMANDS. NO NW CHANGES NEUROLOGICALLY NOTED. NO SIGNS OF DISTRESS/SOB OR PAIN AT THIS TIME. VS WNL: POX 92, HR 71, BP 151/79. WILL CONTINUE MONITORING PATIENT AND ENDORSE CARE TO DAY SHIFT RN.
--- NOTE | 2019-01-02 07:30 | NUR ---
Opening Shift Note Assumed care of patient, awake, opens eyes spontaneously, unable to follow commands, aphasic. No S/S of distress/SOB or pain. Patient on tracheostomy connected to mechanical ventilator, saturation 92%. Glucerna running at 75 ml/hr via PEG, patient tolerating well with 5 ml residuial noted. See interventions for complete assessment. Bed locked on low position, padded side rails up x2, bed alarms on at all times, will continue to monitor for changes Q1hr and PRN.
[2019-01-02] MEDS: CYANOCOBALAMIN 500 MCG TAB PO SCH (09:54)
[2019-01-02] MEDS: LOSARTAN POTASSIUM 25 MG TAB PEG SCH (09:55)
[2019-01-02] MEDS: amLODIPine BESYLATE 5 MG TAB PEG SCH (09:56)
[2019-01-02] MEDS: FUROSEMIDE 40 MG TAB GT SCH (09:56)
[2019-01-02] MEDS: FAMOTIDINE (10MG/ML) 2ML VL IV SCH (09:57)
--- NOTE | 2019-01-02 10:48 | NUR ---
Dr Perry at bedside, updated on patient's status. Informed patient's HR drops to 50's. Patient seen and examined. Received verbal order to discontinue Catapres. Orders read back and verified. Will carry out new orders.
[2019-01-02] MEDS: hydrALAZINE HCL 20 MG/ML VL IV PRN ×2 (12:56→23:10)
--- NOTE | 2019-01-02 15:00 | NUR ---
Dr Velez at bedside, updated on patient's status. Patient seen and examined. No new orders at this time.
--- NOTE | 2019-01-02 16:00 | NUR ---
Patient's Terlton at bedside, updated on patient's status and POC. verbalized understanding. All questions and concerns addressed.
--- NOTE | 2019-01-02 19:55 | NUR ---
AT BEDSIDE SPEAKING TO REGARDING CODE STATUS AND POOR PROGNOSIS FOR THE PATIENT PATIENT'S VERBALIZES UNDERSTANDING BUT STATES SHE HAS NOT MADE A DECISION REGARDING DNR AND WOULD LIKE MORE INFORMATION ON MARCOS. WILL PLACE SOCIAL SERVICE CONSULT PER DR. LOPEZ ORDERS
[2019-01-02] MEDS: ATORVASTATIN 20 MG TAB PO SCH (21:16)
[2019-01-03] VITALS (20 sets, daily range): BP systolic 107–160; BP diastolic 59–95
[2019-01-03] MEDS: ALBUTEROL SULF 2.5 MG/0.5ML(0.5%) NEB SOLN NEB SCH ×4 (00:09→18:01)
[2019-01-03] MEDS: ACCU-CHEK COMFORT CURVE STRIP VI SCH ×6 (00:13→20:03)
[2019-01-03] MEDS: InsuLIN REG 1unit/0.01ml Soln (100units/ml) SC SCH ×6 (00:19→20:03)
[2019-01-03] MEDS: MEROPENEM 1GM IVPB 100 ML IV SCH ×3 (00:20→17:37)
[2019-01-03] MEDS: FREE WATER GT SCH ×6 (02:30→22:00)
--- NOTE | 2019-01-03 03:55 | NUR ---
AM CARE/LINEN CHANGE COMPLETE BED BATH AND LINEN CHANGE DONE. NEW GOWN PLACED ON PATIENT. ZGUARD BARRIER CREAM PLACED TO PERINEAL AREA DUE TO MILD REDNESS. OPTIFOAM TO SACRUM REMAINS INTACT.ORAL CARE PROVIDED. PATIENT REPOSITIONED IN BED FOR COMFORT/PRESSURE RELIEF. NO NEW SKIN CHANGES NOTED. CONTINUE MONITORING.
[2019-01-03 05:09] LABS: Albumin 2.5 g/dL (3.4-5.0); BUN/Creatinine Ratio 38.9; Calcium 8.6 mg/dL (8.5-10.1); Potassium 4.2 mmol/L (3.5-5.1)
[2019-01-03 05:12] LABS: Bilirubin, Total 0.3 mg/dL (0.2-1.0); Total Protein 7.8 g/dL (6.4-8.2)
--- NOTE | 2019-01-03 07:29 | NUR ---
CARE ENDORSED TO DAY SHIFT RN
--- NOTE | 2019-01-03 08:00 | NUR ---
Opening Shift Note Assumed care of patient, awake, eyes opening, didn't follow the direction. On Ventilator: AC 14, TV 550, FiO2 0.3, Peep 8, RR 16-18, STV 560-575, O2 saturation 99%. Instructed on POC, oriented with date, place and time, will continue to monitor for changes Q1hr and PRN.
--- NOTE | 2019-01-03 08:39 | NUR ---
Received a call from Heaven (PADMAJA) regarding Social service consult : possible [facility]. Patient didn't qualify for [facility], will cancel order for [facility]. SS will provide the information for SNF to his family.
[2019-01-03] MEDS: FAMOTIDINE (10MG/ML) 2ML VL IV SCH (09:20)
[2019-01-03] MEDS: CYANOCOBALAMIN 500 MCG TAB PO SCH (09:21)
[2019-01-03] MEDS: FUROSEMIDE 40 MG TAB GT SCH (09:21)
[2019-01-03] MEDS: LOSARTAN POTASSIUM 50 MG TAB PEG SCH (09:22)
[2019-01-03] MEDS: amLODIPine BESYLATE 5 MG TAB PEG SCH (09:22)
--- NOTE | 2019-01-03 09:40 | NUR ---
Position changed, no BM at this time. No PEG content noted, feed Free water as ordered, will continue to monitor and care.
--- NOTE | 2019-01-03 10:00 | NUR ---
Dr. Perry at the bedside, seen and examined patient at this time, no family at the bedside, received order for Lactulose 30 ml PEG PRN daily for constipation.
[2019-01-03] MEDS ORDERED: LACTULOSE 20Gm/30ML SOLN PEG PRN (10:15)
[2019-01-03] MEDS: hydrALAZINE HCL 20 MG/ML VL IV PRN (11:34)
--- NOTE | 2019-01-03 11:45 | NUR ---
Mouth care provided, re position at this time, elevated HOB, RR 14-20/min, O2 saturation 98-99%, no aspiration noted, no fever noted. Will continue to monitor and care.
--- NOTE | 2019-01-03 14:15 | NUR ---
Dr. Trejo at the bedside, seen patient at his time, no family at the bedside, MD stated that already talked to Dr. Velez and Dr. Perry regarding plan of care, will continue plan of care, will need to talk and discuss with his family again before changing plan of care, Will continue ventilator support, MD made aware about limitation of patient 's insurance, social service will provide the information about intermediate project manager care.
--- NOTE | 2019-01-03 14:20 | NUR ---
Nutrition Follow-up Notes Wt.: 118.0 kg Pt's on vent via trach, awake, no immediate family member at bedside, no signs of distress noted when rounded this morning. Pt's currently NPO with EN support of Glucerna 1.2 Roberto @ 75 ml/hr via PEG tube providing 2160 kcal, 108 gms pro and 1449 ml free water, tolerates feeding well, had 5 ml residuals noted by RN this morning. Pt with adequate EN support d/t high initiation rate delivery of concentrated formula aeb current EN infusion meets 90% to 98% of est caloric needs and 94% to 113% of est protein needs. Est. Needs BW 96 [id number] kcal (23-25 kcal/kgBW), 96-115 gms pro (1.0-1.2 gms/kgBW d/t severe hypoalbuminemia). Will continue to monitor pertinent labs and reassess nutrient need prn Labs: BUN 42 H, GLU 192 H, ALB 2.5 L. Skin: Duong scale 13, mod risk, pt's medial abdomen incision, right scalp incision dry and intact per documentation coordinator. Pls refer to latest dumpster operator's notes for further details re: tx plans. GI: Pt had 1 BM 01/01 per documentation coordinator. PES: Increased nutrient needs r/t acute/chronic medical condition aeb with trach, severe hypoalbuminemia, NPO with EN support via PEG tube Altered nutrition related lab values r/t current/chronic medical condition aeb elev BUN, hypocalcemia, hyperglceymia and severe hypoalb Will continue to monitor NPO status, EN tolerance, skin status, pertinent labs and weight trend. F/u in 2 to 3 days. Rec.: 1.) If still NPO, continue EN support of Glucerna 1.2 Roberto @ 75 ml/hr goal rate as tolerated. 2.) If Albumin continues trending down, consider Prostat 1 pkt BID. 3.) Consider daily MVI with minerals and Asc acid 500 mgs BID prn. 4.) Advance gradually to oral diet when medically appropriate. 5.) Refer pt to CDE/RD for further nutrition education and weight monitoring upon discharge. 6.) Continue current plan of care.
--- NOTE | 2019-01-03 15:40 | NUR ---
Mouth care provided, no BM at this time, re position provided at this time, his at the bedside, called SS to make aware that his at the bedside. Will continue to monitor and care.
--- NOTE | 2019-01-03 17:41 | NUR ---
Dr. Velez at the bedside, seen and examined patient at this time, plan of care discussed with his . Plan to wean the ventilator to CPAP then collar mask if Dr. Trejo agree with the plan and family agree with the plan. MD discussed with family more about the hospice care, will continue to monitor and care. Received order to decreased Ventilator setting: AC to 12, peep to 5.
[2019-01-03] MEDS: ATORVASTATIN 20 MG TAB PO SCH (22:00)
[2019-01-04] VITALS (17 sets, daily range): BP systolic 104–175; BP diastolic 55–105
[2019-01-04] MEDS: ALBUTEROL SULF 2.5 MG/0.5ML(0.5%) NEB SOLN NEB SCH ×4 (00:33→18:43)
[2019-01-04] MEDS: MEROPENEM 1GM IVPB 100 ML IV SCH ×3 (00:57→16:11)
[2019-01-04] MEDS: FREE WATER GT SCH ×6 (02:00→21:41)
[2019-01-04] MEDS: ACCU-CHEK COMFORT CURVE STRIP VI SCH ×6 (04:12→20:23)
[2019-01-04] MEDS: InsuLIN REG 1unit/0.01ml Soln (100units/ml) SC SCH ×6 (04:12→20:25)
[2019-01-04] MEDS ORDERED: SODIUM CHLORIDE 0.9 % NEB SOLN 3ML NEB ONE (06:37)
--- NOTE | 2019-01-04 07:30 | NUR ---
Patient hard large amount of brown soft bowel movement, given perineal care. Skin integrity assessed for any changes, noted blanchable redness on sacrum, z-guard and optifoam applied. Linens changed partially. Patient repositioned for comfort.
--- NOTE | 2019-01-04 07:30 | NUR ---
Opening Shift Note Assumed care of patient, awake, laying in bed, unable to follow commands, aphasic. No S/S of distress/SOB or pain. Patient on tracheostomy connected to mechanical ventilator, oxygen saturation 95%. See interventions for complete assessment. Bed locked on low position, padded side rails up x2, bed alarms on at all times, will continue to monitor for changes Q1hr and PRN.
[2019-01-04] MEDS: CYANOCOBALAMIN 500 MCG TAB PO SCH (09:06)
[2019-01-04] MEDS: FAMOTIDINE (10MG/ML) 2ML VL IV SCH (09:06)
[2019-01-04] MEDS: LOSARTAN POTASSIUM 50 MG TAB PEG SCH (09:07)
[2019-01-04] MEDS: amLODIPine BESYLATE 5 MG TAB PEG SCH (09:07)
[2019-01-04] MEDS: FUROSEMIDE 40 MG TAB GT SCH (09:08)
--- NOTE | 2019-01-04 11:15 | NUR ---
Dr Velez at bedside, updated on patient's status. Patient seen and examined. Will carry out new orders.
--- NOTE | 2019-01-04 11:45 | NUR ---
VENT. CHANGES MADE BY DR. MALIK WHILE AT BEDSIDE. NEW SETTINGS ARE SIMV, RATE 10, VT 550, PEEP 5, PS 8, FI02 30%. ABG TO FOLLOW IN ONE HOUR.
--- NOTE | 2019-01-04 14:30 | NUR ---
WOUND CARE NOTE: Weekly reevaluation by wound care team. Patient remains vented on the trach. Last Duong score is 12. Patient remains free of pressure injuries. Nursing to continue with previously ordered skin/wound care orders; wound care team to continue to follow while Duong <18.
--- NOTE | 2019-01-04 15:30 | NUR ---
Patient's temperature 99.8 F axillary. Cooling measures done. Will continue to monitor.
--- NOTE | 2019-01-04 17:00 | NUR ---
Patient's temperature 97.8 F axillary.
--- NOTE | 2019-01-04 17:49 | NUR ---
Dr Gonzalez at bedside, updated on patient's status. Patient seen and examined. Will carry out new orders.
[2019-01-04] MEDS: ATORVASTATIN 20 MG TAB PO SCH (21:41)
[2019-01-05] VITALS (16 sets, daily range): BP systolic 100–164; BP diastolic 53–76
[2019-01-05] MEDS: InsuLIN REG 1unit/0.01ml Soln (100units/ml) SC SCH ×6 (00:30→20:00)
[2019-01-05] MEDS: ACCU-CHEK COMFORT CURVE STRIP VI SCH ×6 (00:30→20:00)
[2019-01-05] MEDS: ALBUTEROL SULF 2.5 MG/0.5ML(0.5%) NEB SOLN NEB SCH ×4 (00:39→18:37)
[2019-01-05] MEDS: MEROPENEM 1GM IVPB 100 ML IV SCH ×3 (01:30→16:47)
[2019-01-05] MEDS: FREE WATER GT SCH ×6 (02:01→22:00)
--- NOTE | 2019-01-05 02:30 | NUR ---
AM CARE COMPLETE BED BATH AND LINEN CHANGE DONE. NEW GOWN PLACED ON PATIENT. REPOSITIONED IN BED FOR COMFORT/PRESSURE RELIEF,OPTIFOAM REMAINS ON SACRUM WITH SACRUM INTACT AND ZGUARD BARRIER CREAM APPLIED TO PERINEAL AREA. ORAL CARE PROVIDED AND SUCTIONING. PATIENT TOLERATED WELL. CONTINUE MONITORING/POC.
--- NOTE | 2019-01-05 07:36 | NUR ---
END OF SHIFT NOTE PATIENT REMAINS IN BED AWAKE BUT NOT TRACKING OR ABLE TO MOVE EXTREMITIES. CONTINUES TO BE ON SIMV MODE POX 96 HR 81 BP 143/72. REMAINED STABLE THROUGHOUT THE NIGHT. CARE ENDORSED TO DAY SHIFT RN EDA.
--- NOTE | 2019-01-05 07:45 | NUR ---
Opening Shift Note Assumed care of patient, patient lying on the bed, connected with ventilator: SIMV 10 PS 8 FiO2 30% Peep 5 TV 550, STV 370-480 ml, RR 16, O2 saturation 96%. No S/S of distress/SOB or pain. No family at the bedside at this time, will continue to monitor for changes Q1hr and PRN.
[2019-01-05] MEDS: FAMOTIDINE (10MG/ML) 2ML VL IV SCH (09:26)
[2019-01-05] MEDS: CYANOCOBALAMIN 500 MCG TAB PO SCH (09:27)
[2019-01-05] MEDS: FUROSEMIDE 40 MG TAB GT SCH (09:27)
[2019-01-05] MEDS: LOSARTAN POTASSIUM 50 MG TAB PEG SCH (09:27)
[2019-01-05] MEDS: amLODIPine BESYLATE 5 MG TAB PEG SCH (09:28)
--- NOTE | 2019-01-05 09:45 | NUR ---
Mouth care provided, position changed. No BM at this time. PEG no content noted, feed Free water as ordered. Will continue to monitor and care.
--- NOTE | 2019-01-05 11:50 | NUR ---
Position changed, RT at the bedside for TT care.
--- NOTE | 2019-01-05 12:00 | NUR ---
Dr. Elizondo at the bedside, seen and examined patient at this time, no family at the bedside. Received order to decreased tube feeding to 60 ml/hr, will continue to monitor and care.
--- NOTE | 2019-01-05 13:35 | NUR ---
Dr. Trejo at the bedside, seen and examined patient at this time, no family at the bedside, no new order, will continue to monitor and care.
--- NOTE | 2019-01-05 13:45 | NUR ---
Mouth care provided, position changed, no BM at this time, perineal and melara's catheter care provided. His at the bedside.
--- NOTE | 2019-01-05 15:37 | NUR ---
Nutrition Follow-up Notes Wt.: 131.0 kg based on bed scale today. Noted with ?13 kg weight gain in last 2 days in spite of recorded negative I & Os, however pt's on specialty air mattress, per nursing. Pt's on vent via trach, aphasic, no immediate family member at bedside, no signs of distress noted when rounded this morning. Pt's currently NPO with EN support of Glucerna 1.2 Roberto @ 60 ml/hr via PEG tube providing 1728 kcal, 86 gms pro and 1159 ml free water, tolerates feeding well, no residuals noted this morning, per nursing. Pt with adequate EN support d/t high initiation rate delivery of concentrated formula aeb current EN infusion meets 76% to 86% of est caloric needs and 82% to 106% of est protein needs. Est. Needs reassessed based on IBW (81 kg): 8793-6342 kcal (25-28 kcal/kgBW), 81-105 gms pro (1.0-1.3 gms/kgBW d/t severe hypoalbuminemia). Will continue to monitor pertinent labs and reassess nutrient need prn Labs: POC Gluc 170 H; 01/03/19 Gluc 192 H, BUN 42 H, Alb 2.5 L. Skin: Duong scale 12, high risk, pt's medial abdomen incision, right scalp incision dry and intact per sales and support center agent. Pls refer to latest hog room supervisor's notes for further details re: tx plans. GI: Pt had 1 BM 01/04/19 per sales and support center agent. PES: Increased nutrient needs r/t acute/chronic medical condition aeb with trach, severe hypoalbuminemia, NPO with EN support via PEG tube Altered nutrition related lab values r/t current/chronic medical condition aeb elev BUN, hypocalcemia, hyperglycemia and severe hypoalb Will continue to monitor NPO status, EN tolerance, skin status, pertinent labs and weight trend. F/u in 2 to 3 days. Rec.: 1.) If still NPO with EN support, consider gradual increase on feeding rate of Glucerna 1.2 Roberto @ 70 ml/hr goal rate as tolerated. 2.) If Albumin continues trending down, consider Prostat 1 pkt BID. 3.) Consider daily MVI with minerals and Asc acid 500 mgs BID prn. 4.) Consider to recheck and record pt's actual BW based on bed scale. 5.) Advance gradually to oral diet when medically appropriate. 6.) Refer pt to CDE/RD for further nutrition education and weight monitoring upon discharge. 7.) Continue current plan of care.
--- NOTE | 2019-01-05 16:01 | NUR ---
Position changed, PEG no content noted, no sign of hypoglycemia noted. His families at the bedside.
--- NOTE | 2019-01-05 16:10 | NUR ---
Dr. Velez at the bedside, seen and examined patient, will continue Ventilator as current setting order, no new order.
--- NOTE | 2019-01-05 18:00 | NUR ---
Position changed, mouth care provided. No BM at this time. PEG no content noted, feed Free water as order, tolerated well. Vital sign stable, no fever noted. His family at the bedside.
--- NOTE | 2019-01-05 19:15 | NUR ---
OPENING SHIFT RECEIVED REPORT FROM DAY SHIFT RN. ASSUMED CARE OF PATIENT. PATIENT IN BED WITH NO SIGNS OR SYMPTOMS OF SOB, PAIN OR DISTRESS. PATIENT VENTED VIA TRACH - SIMV 10 / TV550 / FI02 30% / PEEP +5 / PS 8, 02 SAT - 97%. RIGHT UPPER ARM MIDLINE - CLEAN/DRY/INTACT. BERRIOS HUNG TO GRAVITY ON BED RAIL. REPOSITIONED FOR COMFORT. BED IN LOWEST POSITION, SIDE RAILS UP X2. WILL CONTINUE TO MONITOR.
--- NOTE | 2019-01-05 21:20 | NUR ---
PM CARE PERFORMED BED BATH WITH CHG WIPES AND WASH CLOTHS TO THE FACE. PARTIAL LINEN CHANGE AND GOWN CHANGED. ORAL CARE AND BERRIOS CARE PERFORMED. REPOSITIONED FOR COMFORT. SKIN REASSESSED AT THIS TIME. BED IN LOWEST POSITION, SIDE RAIL SUP X2. WILL CONTINUE TO MONITOR.
[2019-01-05] MEDS: ATORVASTATIN 20 MG TAB PO SCH (23:02)
[2019-01-06] VITALS (17 sets, daily range): BP systolic 112–158; BP diastolic 64–85
[2019-01-06] MEDS: ALBUTEROL SULF 2.5 MG/0.5ML(0.5%) NEB SOLN NEB SCH ×4 (00:34→20:39)
[2019-01-06] MEDS: InsuLIN REG 1unit/0.01ml Soln (100units/ml) SC SCH ×6 (00:57→20:00)
[2019-01-06] MEDS: MEROPENEM 1GM IVPB 100 ML IV SCH ×3 (00:57→17:45)
[2019-01-06] MEDS: FREE WATER GT SCH ×6 (02:00→22:00)
[2019-01-06] MEDS: ACCU-CHEK COMFORT CURVE STRIP VI SCH ×6 (04:00→20:00)
--- NOTE | 2019-01-06 07:23 | NUR ---
END OF SHIFT REPORT GIVEN TO DAY SHIFT RN. CARE ENDORSED.
--- NOTE | 2019-01-06 07:50 | NUR ---
Opening Shift Note Assumed care of patient, patient opens his eyes, not follow direction. No S/S of distress/SOB or pain, on Ventilator: SIMV 10, PS 8, TV 550, O2 30%Peep 5, STV 450, RR 14-18/min, O2 saturation 97%. No family at the bedside at this time, will continue to monitor for changes Q1hr and PRN. Mouth care provided, position changed.
--- NOTE | 2019-01-06 09:45 | NUR ---
Found feeding leaking from the PEG site, perineal care provided, flush with water also leaking out as well, patient position changed, hold tube feeding and medications this morning at this time. Paged Dr. Elliott to call back.
[2019-01-06] MEDS: FUROSEMIDE 40 MG TAB GT SCH (10:00)
[2019-01-06] MEDS: LOSARTAN POTASSIUM 50 MG TAB PEG SCH (10:00)
[2019-01-06] MEDS: CYANOCOBALAMIN 500 MCG TAB PO SCH (10:00)
[2019-01-06] MEDS: amLODIPine BESYLATE 5 MG TAB PEG SCH (10:00)
[2019-01-06] MEDS: FAMOTIDINE (10MG/ML) 2ML VL IV SCH (10:19)
--- NOTE | 2019-01-06 10:50 | NUR ---
Dr. Elliott at the bedside, no family at this time. Received an order from Dr. Elliott for GI Consult per feeding tube leaking around the PEG site. Will hold tube feeding at this time.
[2019-01-06] MEDS: ERGOCALCIFEROL 50,000 UNIT(1.25MG) CAP PO SCH (12:00)
[2019-01-06] MEDS: hydrALAZINE HCL 20 MG/ML VL IV PRN (12:01)
--- NOTE | 2019-01-06 12:39 | NUR ---
Dr. Claros (PA for Dr. Mariee) at the bedside, seen and examined patient at his time, plan of care discussed with patient's , Dr. Mariee will come and see patient as well. Will continue hold tube feeding at this time. Patient's made aware.
--- NOTE | 2019-01-06 13:15 | NUR ---
BP 135/73 mmHg, after Hydralazine given.
--- NOTE | 2019-01-06 15:15 | NUR ---
Dr. Velez at the bedside, seen and examined patient at his time, no new order noted. Will continue plan of care.
--- NOTE | 2019-01-06 15:45 | NUR ---
Dr. Mariee at the bedside, seen and examined patient at this time, plan to have EGD with PEG placement tomorrow. Called and paged Dr. Elliott to call back. Waiting MD to call back regarding to confirm IV hydration.
--- NOTE | 2019-01-06 16:31 | NUR ---
Dr. Elliott made aware about the plan for EGD with PEG placement tomorrow, will continue hold tube feeding, made aware that hold Lasix and other medications this morning, and patient will be NPO till tomorrow, no new order at this time. Blood sugar 130-150 , no sign of hypoglycemia noted, hold insulin due to NPO. Will continue to monitor and care.
--- NOTE | 2019-01-06 18:05 | NUR ---
Position changed. Continue Ventilator as order, RR 14-20/min, O2 saturation 96-98%, HR 70-90 /min, SBP 110-130 mmHg, urine out put 750 ml, no fever noted. Explained the procedure for EGD with PEG placement with his , she would like to sign later after we also explain to her daughter. Her daughter will call later of today.
[2019-01-06] MEDS: ATORVASTATIN 20 MG TAB PO SCH (22:00)
[2019-01-07] VITALS (18 sets, daily range): BP systolic 106–182; BP diastolic 59–100
[2019-01-07] MEDS: MEROPENEM 1GM IVPB 100 ML IV SCH ×3 (00:35→17:02)
[2019-01-07] MEDS: ALBUTEROL SULF 2.5 MG/0.5ML(0.5%) NEB SOLN NEB SCH ×5 (00:45→23:55)
[2019-01-07] MEDS: FREE WATER GT SCH ×6 (02:00→22:00)
[2019-01-07] MEDS: InsuLIN REG 1unit/0.01ml Soln (100units/ml) SC SCH ×6 (04:00→20:00)
[2019-01-07] MEDS: ACCU-CHEK COMFORT CURVE STRIP VI SCH ×6 (04:00→20:00)
[2019-01-07 05:06] LABS: Basophils # (auto) 0 uL; Basophils % (auto) 0.3 % (0.0-2.0); Eosinophils # (auto) 0.2 uL; Eosinophils % (auto) 1.8 % (0.0-7.0); Hematocrit 34.8 % (41.0-53.0); Hemoglobin 11.6 g/dL (13.5-17.5); Lymphocytes # (auto) 1.3 uL; Lymphocytes % (auto) 15.1 % (10.0-50.0); Mean Corpuscular Hemoglobin 29.5 pg (28.0-32.0); Mean Corpuscular Hgb Conc. 33.5 g/dL (32.0-36.0); Mean Corpuscular Volume 88.1 fL (80.0-100.0); Monocytes # (auto) 0.6 uL; Monocytes % (auto) 6.9 % (0.0-12.0); Neutrophils # (auto) 6.6 uL; Neutrophils % (auto) 75.9 % (37.0-80.0); Nucleated Red Blood Cells % 0.1 %; Platelet Count (auto) 181 10^3/uL (140-450); Red Blood Cells 3.95 10^6/uL (4.5-5.90); Red Cell Distribution Width 14.8 % (11.8-14.3); White Blood Cell 8.6 10^3/uL (4.4-10.8)
[2019-01-07 05:19] LABS: INR 1.13 (0.9-1.15); Partial Thromboplastin Time 26.2 sec (23.64-32.05)
[2019-01-07 05:26] LABS: BUN/Creatinine Ratio 54.7; Calcium 8.8 mg/dL (8.5-10.1); Potassium 4.2 mmol/L (3.5-5.1)
--- NOTE | 2019-01-07 07:30 | NUR ---
Opening Shift Note Assumed care of patient, laying in bed, eyes closed, arousable to shaking, unable to follow commands, aphasic. Patient on tracheostomy connected to mechanical ventilator, SIMV mode. No S/S of distress/SOB or pain. Patient's PEG leaking per report, no feeding running at this time, patient schedule for PEG insertion today. See interventions for complete assessment. Patient on air mattress, bed locked on low position, padded side rails up x2, bed alarms on at all times, will continue to monitor for changes Q1hr and PRN.
--- NOTE | 2019-01-07 08:50 | NUR ---
Dr Trejo at bedside, updated on patient's status. Patient seen and examined. No new orders at this time.
[2019-01-07] MEDS: LOSARTAN POTASSIUM 50 MG TAB PEG SCH (08:59)
[2019-01-07] MEDS: FUROSEMIDE 40 MG TAB GT SCH (08:59)
[2019-01-07] MEDS: amLODIPine BESYLATE 5 MG TAB PEG SCH (09:00)
[2019-01-07] MEDS: CYANOCOBALAMIN 500 MCG TAB PO SCH (09:00)
--- NOTE | 2019-01-07 09:00 | NUR ---
Medication via PEG held, PEG leaking, clamped, patient scheduled for PEG replacement.
[2019-01-07] MEDS: FAMOTIDINE (10MG/ML) 2ML VL IV SCH (09:06)
[2019-01-07] MEDS ORDERED: SODIUM CHLORIDE LOCK 10 ML ONE (09:13)
[2019-01-07] MEDS ORDERED: diphenhdrAMINE HCL 50 MG/1 ML VL ONE (09:14)
[2019-01-07] MEDS ORDERED: LIDOCAINE VISCOUS 2% 15ML UD ONE (09:14)
--- NOTE | 2019-01-07 11:00 | NUR ---
Dr Elliott at bedside, updated on patient's status. Patient seen and examined. Received verbal order to transfer patient to Telemetry floor. Orders read back and verified. Will facilitate.
--- NOTE | 2019-01-07 13:32 | NUR ---
Nutrition Follow-up Notes Wt.: 131.0 kg based on bed scale today. Pt's on vent via trach, aphasic, no signs of distress noted earlier, currently NPO with EN support temporarily held d/t leaking and for PEG placement, per nursing. Pt's previously on Glucerna 1.2 Roberto @ 60 ml/hr via PEG tube providing 1728 kcal, 86 gms pro and 1159 ml free water and for active GI consult. Est. Needs reassessed based on IBW (81 kg): 0309-8727 kcal (25-28 kcal/kgBW), 81-105 gms pro (1.0-1.3 gms/kgBW d/t severe hypoalbuminemia). Will continue to monitor pertinent labs and reassess nutrient need prn Labs: Gluc 143 H, Cl 109 H, BUN 32 H; Alb 2.5 L. Skin: Duong scale 12, high risk, pt's medial abdomen incision, right scalp incision dry and intact per tiller worker. Pls refer to latest street superintendent's notes for further details re: tx plans. GI: Pt had 1 BM 01/06/19 per tiller worker. PES: Increased nutrient needs r/t acute/chronic medical condition aeb with trach, severe hypoalbuminemia, NPO with EN support via PEG tube Altered nutrition related lab values r/t current/chronic medical condition aeb elev BUN, hypocalcemia, hyperglycemia and severe hypoalb Will continue to monitor NPO status, pertinent labs and weight trend. F/u in 2 to 3 days. Rec.: 1.) If still NPO, consider to resume on EN support of Glucerna 1.2 Roberto @ 70 ml/hr goal rate via PEG tube as tolerated when medically appropriate. 2.) If Albumin continues trending down, consider Prostat 1 pkt BID. 3.) Consider daily MVI with minerals and Asc acid 500 mgs BID prn. 4.) Consider to recheck and record in [employer] pt's actual BW based on bed scale. 5.) Advance gradually to oral diet when medically appropriate. 6.) Refer pt to CDE/RD for further nutrition education and weight monitoring upon discharge. 7.) Continue current plan of care.
--- NOTE | 2019-01-07 14:10 | NUR ---
EGD with PEG insertion being done at bedside by Dr Mariee and OR staff.
[2019-01-07] MEDS: fentaNYL CITRATE 100 MCG/2 ML VL ONE ×2 (14:15→14:18)
[2019-01-07] MEDS: MIDAZOLAM HCL 5 MG/ML-1ML VIAL ONE ×2 (14:15→14:18)
--- NOTE | 2019-01-07 14:35 | NUR ---
Patient s/p EGD wit PEG insertion with findings of duodenitis per Dr Mariee. VS WNL BP 125/72, HR 78, RR 12, oxygen saturation 97%. Will continue to monitor.
--- NOTE | 2019-01-07 14:45 | NUR ---
Dr Velez at bedside, updated on patient's status. Patient seen and examined. No new orders at this time.
--- NOTE | 2019-01-07 19:25 | NUR ---
OPENING SHIFT RECEIVED REPORT FROM DAY SHIFT RN. ASSUMED CARE OF PATIENT. PATIENT IN BED WITH NO SIGNS OR SYMPTOMS OF SOB, PAIN OR DISTRESS. PATIENT VENTED VIA TRACH - SIMV 10 / TV550 / FI02 30% / PEEP +5 / PS 8, 02 SAT - 96%. RIGHT UPPER ARM MIDLINE - CLEAN/DRY/INTACT. BERRIOS HUNG TO GRAVITY ON BED RAIL. REPOSITIONED FOR COMFORT. BED IN LOWEST POSITION, SIDE RAILS UP X2. WILL CONTINUE TO MONITOR.
[2019-01-07] MEDS: ATORVASTATIN 20 MG TAB PO SCH (22:00)
[2019-01-08] VITALS (18 sets, daily range): BP systolic 124–153; BP diastolic 66–84
[2019-01-08] MEDS: ACCU-CHEK COMFORT CURVE STRIP VI SCH ×7 (00:22→23:37)
[2019-01-08] MEDS: MEROPENEM 1GM IVPB 100 ML IV SCH ×3 (00:33→16:57)
[2019-01-08] MEDS: FREE WATER GT SCH ×6 (02:00→20:04)
[2019-01-08] MEDS: InsuLIN REG 1unit/0.01ml Soln (100units/ml) SC SCH ×7 (04:00→23:37)
--- NOTE | 2019-01-08 05:45 | NUR ---
MORNING CARE PERFORMED MORNING CARE WITH CHG WIPES AND WASH CLOTHS TO THE FACE. PARTIAL LINEN CHANGE AND GOWN CHANGED. ORAL AND BERRIOS CARE PERFORMED. SKIN REASSESSED AT THIS TIME. REPOSITIONED FOR COMFORT. WILL CONTINUE TO MONITOR.
[2019-01-08] MEDS: ALBUTEROL SULF 2.5 MG/0.5ML(0.5%) NEB SOLN NEB SCH ×3 (06:23→18:23)
--- NOTE | 2019-01-08 07:30 | NUR ---
Opening Shift Note Assumed care of patient, laying on air mattress, eyes closed, arousable to shaking, unable to follow commands, aphasic. No S/S of distress/SOB or pain. Patient on tracheostomy connected to mechanical ventilator, SIMV mode, oxygen saturation 96%. Patient s/p EGD with PEG replacement yesterday, PEG still not being used. See interventions for complete assessment. Bed locked on low position, padded side rails up x2, bed alarms on at all times, will continue to monitor for changes Q1hr and PRN.
--- NOTE | 2019-01-08 09:59 | NUR ---
Dr Elliott at bedside, updated on patient's status. Patient seen and examined. No new orders at this time.
--- NOTE | 2019-01-08 11:00 | NUR ---
Medications via PEG not given, unable to use PEG until after 1400 today.
--- NOTE | 2019-01-08 12:10 | NUR ---
Dr Mariee at bedside, updated on patient's status. Patient PEG seen and examined. MD states "You can go ahead use the PEG tube." Orders read back and verified. Will carry out.
[2019-01-08] MEDS: LOSARTAN POTASSIUM 50 MG TAB PEG SCH (12:21)
[2019-01-08] MEDS: CYANOCOBALAMIN 500 MCG TAB PO SCH (12:21)
[2019-01-08] MEDS: amLODIPine BESYLATE 5 MG TAB PEG SCH (12:22)
[2019-01-08] MEDS: FUROSEMIDE 40 MG TAB GT SCH (12:22)
[2019-01-08] MEDS: OMEPRAZOLE 20MG/10ML ORAL SUSP GT SCH (12:23)
--- NOTE | 2019-01-08 12:30 | NUR ---
Re-started patient on Glucerna with Carbsteady via PEG at 30ml/hr. Will continue to monitor.
--- NOTE | 2019-01-08 15:21 | NUR ---
re-assessment I met with patients Patsy with [facility] [employer] who translated for us. Per Patsy she prefers for patient to go to LTAC on discharge. Patsy is afraid of caring for patient at home. Per Patsy patient was working and he took care of all finances and household financials. Per Patsy she does not know the monthly income. Patsy does not know about patients medical plan or if he has intermission coordinator insurance. Per Patsy she does not have access to patients financial records. I have provided Patsy with Tree Casey of [facility] information so she could call and set up an appointment. Per Patsy her daughter Ellen has already called and started the disability process so patient can get Medicare. I called Tree and he will meet with Patsy and Ellen in the morning at bedside for [facility]. Per Tree he will walk family through the process and will need a letter from Dr Elliott. I will notify Dr Elliott of need of disability letter. For now the plan is for LTAC. Per Emmy Acosta patients health [facility] is at risk for LTAC. Emt/Dispatcher Isabel will follow up with health plan. Addendum: 01/08/19 at 1524 by Heaven GIANG Amended: Links added.
--- NOTE | 2019-01-08 15:30 | NUR ---
D/C Planning SS Heaven advised me to fax order to [facility]:). Contact and faxed medical records to [facility]. Per Dalila from [facility]:) she would evaluate patient on 01/09/19 in the morning. Will follow up with facilities in the morning
--- NOTE | 2019-01-08 15:49 | NUR ---
Patient's blood sugar 131 mg/dl, two units of Insulin held. Patient was just started on 30ml/hr Glucerna at 12nn. Will continue to monitor.
--- NOTE | 2019-01-08 16:24 | NUR ---
Dr Velez at bedside, updated on patient's status. Patient seen and examined. No new orders at this time.
--- NOTE | 2019-01-08 20:00 | NUR ---
SHIFT OPENING NOTE RECEIVED PATIENT LAYING IN BED WITH EYES CLOSED. OPENS EYES OCCASIONALLY, DOES NOT TRACK, FLACCID EXTREMITIES, DOES NOT OBEY COMMANDS. HAS A TRACH ON VENT SIMV 10 TV 550 PS 8 PEEP 5 FI02 30%. ON FEEDINGS THROUGH PEG TUBE GLUCERNA WITH CARBSTEADY AT 30 ML/H (GOAL 75 ML/H), NO RESIDUALS NOTED. BERRIOS CATH DRAINING YELLOW URINE TO GRAVITY. RIGHT UPPER ARM MIDLINE INFUSING ANTIBIOTIC. PHYSICAL ASSESSMENT COMPLETED, SEE INTERVENTIONS. WILL CLOSELY MONITOR.
[2019-01-08] MEDS: ATORVASTATIN 20 MG TAB PO SCH (20:46)
[2019-01-09] VITALS (15 sets, daily range): BP systolic 115–163; BP diastolic 64–83
[2019-01-09] MEDS: ALBUTEROL SULF 2.5 MG/0.5ML(0.5%) NEB SOLN NEB SCH ×4 (00:05→19:37)
[2019-01-09] MEDS: MEROPENEM 1GM IVPB 100 ML IV SCH ×3 (01:00→18:03)
--- NOTE | 2019-01-09 02:20 | NUR ---
MORNING HYGIENE CARE FULL BED BATH PERFORMED USING CHG WIPES AND WARM SOAPY WASH CLOTHES. ORAL CARE DONE. GOWN CHANGED. FULL LINEN CHANGED. PATIENT REPOSITIONED FOR COMFORT. TOLERATED IT WELL.
[2019-01-09] MEDS: InsuLIN REG 1unit/0.01ml Soln (100units/ml) SC SCH ×6 (04:00→23:55)
[2019-01-09] MEDS: ACCU-CHEK COMFORT CURVE STRIP VI SCH ×6 (04:33→23:56)
[2019-01-09] MEDS: FREE WATER GT SCH ×6 (04:33→21:46)
[2019-01-09] MEDS ORDERED: SODIUM CHLORIDE 0.9 % NEB SOLN 3ML NEB ONE ×2 (05:23→12:31)
--- NOTE | 2019-01-09 08:30 | NUR ---
ABOUT 10ML OF RESIDUAL FROM THE FEEDING TUBE WHICH IS RUNNING AT 40ML/HR
--- NOTE | 2019-01-09 09:20 | NUR ---
NO CHANGE IN PATIENTS CONDITION, NO TRACKING WITH EYES WHICH ARE OPEN
--- NOTE | 2019-01-09 10:20 | NUR ---
BEING SUCTIONED BY RT NEEDED
[2019-01-09] MEDS: CYANOCOBALAMIN 500 MCG TAB PO SCH (10:25)
[2019-01-09] MEDS: LOSARTAN POTASSIUM 50 MG TAB PEG SCH (10:28)
[2019-01-09] MEDS: FUROSEMIDE 40 MG TAB GT SCH (10:29)
[2019-01-09] MEDS: OMEPRAZOLE 20MG/10ML ORAL SUSP GT SCH (10:30)
--- NOTE | 2019-01-09 10:30 | NUR ---
EXPLAIN MEDICATIONS TO THE PATIENT EVEN THOUGH HE DOESN'T UNDERSTAND REGARDING THE DOSAGE, USAGE, AND THE SIDE EFFECTS, AND MEDS GIVEN ORDERED
--- NOTE | 2019-01-09 10:50 | NUR ---
DR WATERS IN TO SEE BUT NO NEW ORDERS
--- NOTE | 2019-01-09 11:20 | NUR ---
IN TO VISIT WITH THE PATIENT
--- NOTE | 2019-01-09 12:20 | NUR ---
PATIENT BEING TURNED Q 2 HOURS AND NO RESIDUAL FROM THE PEG TUBE FEEDING, INFUSING AT 40ML/HR
[2019-01-09] MEDS: amLODIPine BESYLATE 5 MG TAB PEG SCH (12:32)
--- NOTE | 2019-01-09 13:20 | NUR ---
LEFT STATED SHE WOULD BE BACK
--- NOTE | 2019-01-09 13:30 | NUR ---
D/C planning Per Dalila Gipson they are willing to accept however authorization is needed. Advised [facility] will provide authorization not the group. Dalila angel [place]ford said she will follow up with me. Per Neftali from [facility] they are willing to accept patient as long as family agrees for patient to go to [place]. Advised Neftali from [facility] patient health plan will provide authorization once accepted.
--- NOTE | 2019-01-09 14:10 | NUR ---
FISHING HAND IN TO TALK WITH THE PATIENT
--- NOTE | 2019-01-09 14:43 | NUR ---
PATENT IS STILL NON VERBAL, EYES OPEN BUT NO TRACKING
--- NOTE | 2019-01-09 14:54 | NUR ---
Nutrition Follow-up Notes Wt.: 128.6 kg Pt's on vent via trach, aphasic, no signs of distress noted earlier, currently NPO with EN support with Glucerna @ 40 ml./hr providing 1152 kcals and 57 gm proteins. pt with inadequate EN support as it meets 51-57% kcals and 54-70% proteins Est. Needs reassessed based on IBW (81 kg): 6336-6472 kcal (25-28 kcal/kgBW), 81-105 gms pro (1.0-1.3 gms/kgBW d/t severe hypoalbuminemia). Will continue to monitor pertinent labs and reassess nutrient need prn Labs: GLU 143 H, BUN 47 H Skin: Duong scale 9, high risk, pt's medial abdomen incision, right scalp incision dry and intact per refrigerator room clerk. Pls refer to latest automotive software engineer's notes for further details re: tx plans. GI: Pt had 1 BM 01/06/19 per refrigerator room clerk. PES: Increased nutrient needs r/t acute/chronic medical condition aeb with trach, severe hypoalbuminemia, NPO with EN support via PEG tube Altered nutrition related lab values r/t current/chronic medical condition aeb elev BUN, hypocalcemia, hyperglycemia and severe hypoalb Will continue to monitor NPO status, EN tolerance, pertinent labs and weight trend. F/u in 2 to 3 days. Rec.: 1.) Advance EN support of Glucerna 1.2 Roberto @ 70 ml/hr goal rate via PEG tube as tolerated when medically appropriate. 2.) If Albumin continues trending down, consider Prostat 1 pkt BID. 3.) Consider daily MVI with minerals and Asc acid 500 mgs BID prn. 4.) Consider to recheck and record in [facility] pt's actual BW based on bed scale. 5.) Advance gradually to oral diet when medically appropriate. 6.) Refer pt to CDE/RD for further nutrition education and weight monitoring upon discharge. 7.) Continue current plan of care.
--- NOTE | 2019-01-09 14:54 | NUR ---
PER BUSTER FROM CASE MANAGEMENT PATIENT WILL BE DISCHARGED TOMORROW POSSIBLE MARC[facility]
--- NOTE | 2019-01-09 15:02 | NUR ---
SITTING AT THE BEDSIDE WITH THE PATIENT, NO GOODMAN IN HIS CONDITION
--- NOTE | 2019-01-09 15:10 | NUR ---
RECEIVED PATIENT SITTING UP IN BED, PATIENT HAS A SIZE 6 SHILEY TO THE NECK WHICH IS CONNECTED TO THE VENTILATOR, SETTING OF SIMV 10,PS8,PEEP5,TV 550, [id number]%, HAS A MIDLINE TO THE VERN AT NS AT TKO, BERRIOS TO GRAVITY, ON SPECIALTY MATTRESS, SCD'S TO RICARDO LEGS, FOAM BOOTS TO RICARDO LEGS, NS INFUSING INTO THE VERN MIDLINE AT TKO BY THE IV PUMP, NO SIGNS OF PAIN
--- NOTE | 2019-01-09 15:16 | NUR ---
DR MALIK IN TO SEE THE PATIENT, BUT NO NEW ORDERS
--- NOTE | 2019-01-09 15:56 | NUR ---
RT VÁSQUEZ DOING TRACH CARE ON THE PATIENT
--- NOTE | 2019-01-09 16:21 | NUR ---
D/C Planning [facility] and my self spoke to patient at bedside regarding placement. Patient Patsy requested [facility] [place] or [place]. Followed up call to [facility] spoke to Dalila. Advised Dalila patient is requesting [place] or [place]. Per Dalila they contact health plan and group to see who will provide authorization. I will follow up tomorrow morning.
--- NOTE | 2019-01-09 16:30 | NUR ---
REPORT GIVEN TO RICHELLE BLAND PATIENT PLACED ON TELE 29 GOING TO ROOM 202, IS IN THE ROOM AND AWARE OF THE TRANSFER
--- NOTE | 2019-01-09 17:20 | NUR ---
PATIENT TRANSFERRED TO ROOM 202 BY THE BED, PICTURE OF THE SKIN TEAR TO THE SACRUM, WITH MACERATION AND DARK PURPLE SKIN, WHICH WAS ASSESSED ON MORNING ASSESSMENT, ALL BELONGINGS TAKEN WITH THE PATIENT Addendum: 01/09/19 at 1729 by Susan Schneider RN PICTURE WAS TAKEN OF THE SACRUM
--- NOTE | 2019-01-09 17:30 | NUR ---
Received patient via bed from [facility]. Patient non-verbal, bedbound, on PEG tube on Glucerna drip, with tracheostomy, on mechanical vent, O2 Sat = 98%, Heart rate = 76. at bedside.
[2019-01-09] MEDS: hydrALAZINE HCL 20 MG/ML VL IV PRN (18:26)
--- NOTE | 2019-01-09 18:26 | NUR ---
BP = 163/83. Hydralazine Inj 20 mg given for SBP>150. at bedside.
--- NOTE | 2019-01-09 19:36 | NUR ---
Opening Shift Note Assumed care of patient, asleep, arousal to mild painful stimuli. Patient open his eyes but does not focus on me. Specialty mattress on bed. Bed is in lowest position and locked. Patient attached via tracheostomy to SIMV with 30% FiO2. 5 mls of residual aspirate pulled from NG tube. at bedside. In-line suction and bedside suction available. No S/S of distress/SOB or pain. Instructed on POC and to call for assist PRN, will continue to monitor for changes Q1hr and PRN.
[2019-01-09] MEDS: Glucerna 1.2 Cal 1Liter BOTTLE GT SCH (21:19)
[2019-01-09] MEDS: ATORVASTATIN 20 MG TAB PO SCH (21:47)
[2019-01-09] MEDS: ACETAMINOPHEN 650 mg PER 20 mL UD GT PRN (21:47)
--- NOTE | 2019-01-09 22:38 | NUR ---
5 mls of aspirate from PEG tube. 200 mls free water flush given. Will continue to monitor.
--- NOTE | 2019-01-09 23:56 | NUR ---
Witholding insulin per sliding scale for blood glucose of 134 mg/dl. Withholding because patient was just put back on Glucerna and I am concerned the glucose level will decrease and insulin will cause patient to become hypoglycemic. Will reassess at 0400.
[2019-01-10] MEDS: MEROPENEM 1GM IVPB 100 ML IV SCH ×3 (01:24→19:57)
--- NOTE | 2019-01-10 02:06 | NUR ---
10 mls residual from PEG tube. 200 mls of free water given. Will continue to monitor.
[2019-01-10] MEDS: FREE WATER GT SCH ×6 (02:09→22:11)
[2019-01-10] MEDS: InsuLIN REG 1unit/0.01ml Soln (100units/ml) SC SCH ×5 (04:28→20:50)
[2019-01-10] MEDS: ACCU-CHEK COMFORT CURVE STRIP VI SCH ×5 (04:31→20:00)
[2019-01-10 06:01] VITALS: BP 130/77
--- NOTE | 2019-01-10 06:05 | NUR ---
20 mls of glucerna feeding aspirated from PEG tube. free water flush performed.
--- NOTE | 2019-01-10 07:20 | NUR ---
Opening Shift Note Assumed care of patient, laying on air mattress, eyes closed, arousable to mild painful stimuli, unable to follow commands, aphasic. No S/S of distress/SOB or pain. Patient has tracheostomy connected to mechanical ventilator, SIMV mode, oxygen saturation at 98%. Bed locked in lowest position, padded side rails up x2, bedside suction available, bed alarms on at all times. Updated on POC. Will continue to monitor for changes Q1hr and PRN.
[2019-01-10] MEDS: ALBUTEROL SULF 2.5 MG/0.5ML(0.5%) NEB SOLN NEB SCH ×4 (07:48→23:55)
[2019-01-10 08:18] VITALS: BP 126/76
--- NOTE | 2019-01-10 08:25 | NUR ---
Respiratory note: Increased Fio2 to 40% per Dr. Elliott, will draw abg in two hours. Patient's spo2 increased to 97%. RN Jerilyn is aware.
--- NOTE | 2019-01-10 09:00 | NUR ---
Old Peg tube incision oozing pus. Dr. Elliott made aware, received new orders. Will cleanse site and follow through with orders.
[2019-01-10] MEDS: LOSARTAN POTASSIUM 50 MG TAB PEG SCH (10:20)
[2019-01-10] MEDS: CYANOCOBALAMIN 500 MCG TAB PO SCH (10:20)
[2019-01-10] MEDS: OMEPRAZOLE 20MG/10ML ORAL SUSP GT SCH (10:20)
[2019-01-10] MEDS: FUROSEMIDE 40 MG TAB GT SCH (10:20)
[2019-01-10] MEDS: amLODIPine BESYLATE 5 MG TAB PEG SCH (10:21)
[2019-01-10] MEDS: MUPIROCIN 2% OINT 15gm or 22gm TOP SCH ×2 (10:31→22:10)
[2019-01-10 13:00] VITALS: BP 139/70
[2019-01-10] MEDS: Glucerna 1.2 Cal 1Liter BOTTLE GT SCH (16:30)
[2019-01-10 17:23] VITALS: BP 120/73
--- NOTE | 2019-01-10 19:30 | NUR ---
Opening Shift Note Received report from hemalatha Jean-Baptiste RN. Assumed care of patient, laying on air mattress bed with open eyes, arousable to mild painful stimuli, unable to follow commands, aphasic. No S/S of distress/SOB or pain noted. Patient has tracheostomy connected to mechanical ventilator, SIMV mode, oxygen saturation at 97%. Bed locked in lowest position, padded side rails up x2, bedside suction available, bed alarms on at all times. at bedside, updated on POC. Will continue to monitor for changes Q1hr and PRN.
[2019-01-10 22:00] VITALS: BP 126/80
--- NOTE | 2019-01-10 22:00 | NUR ---
DRESSING TO OLD PEG TUBE SITE TO ABDOMEN CHANGED. CLEANSED WOUND WITH NS, PAT DRY. APPLIED BACTROBAN OINTMENT ORDERED. SMALL AMOUNT OF THICK YELLOW NOTED. COVERED WITH GAUZE AND SECURED WITH CLEAR FILM DRESSING. PATIENT TOLERATED WELL.
[2019-01-10] MEDS: ATORVASTATIN 20 MG TAB PO SCH (22:10)
[2019-01-11] MEDS: ACCU-CHEK COMFORT CURVE STRIP VI SCH ×6 (00:12→20:00)
[2019-01-11] MEDS: InsuLIN REG 1unit/0.01ml Soln (100units/ml) SC SCH ×6 (00:23→20:39)
[2019-01-11] MEDS: MEROPENEM 1GM IVPB 100 ML IV SCH ×3 (01:26→17:40)
[2019-01-11] MEDS: FREE WATER GT SCH ×6 (02:36→22:46)
[2019-01-11 05:00] VITALS: BP 135/59
[2019-01-11] MEDS: ALBUTEROL SULF 2.5 MG/0.5ML(0.5%) NEB SOLN NEB SCH ×4 (05:45→23:35)
--- NOTE | 2019-01-11 07:11 | NUR ---
Opening shift notes Assumed care of patient from tape fastener machine operator. Patient responds to painful stimuli. Patient supine, head of bed at 30 degrees. Patient is receiving Glucerna tube feeding at 60ml/hr, tolerating well. Bowel sounds normal. Duff draining cloudy yellow urine. Auscultated lung sounds, expiratory wheezes bilaterally. Auscultated heart sounds, S1 and S2 noted. Patient on SCD therapy. Bed locked, in lowest position, and side rails upx2. Will continue to monitor.
--- NOTE | 2019-01-11 08:10 | NUR ---
Temperature Patient has temperature of 100.3 Tylenol given and cooling measures initiated.
[2019-01-11] MEDS: ACETAMINOPHEN 650 mg PER 20 mL UD GT PRN (08:15)
--- NOTE | 2019-01-11 08:15 | NUR ---
Family at bedside Patient's mother, cousin and aunt are at bedside.
[2019-01-11 09:00] VITALS: BP 124/74
--- NOTE | 2019-01-11 09:15 | NUR ---
Temperature recheck Temperature rechecked at 100.0. Cooling measures continued, ice packs placed under arms and cool washcloth placed on head. will continue to monitor.
--- NOTE | 2019-01-11 09:50 | NUR ---
Dr. Elliott at bedside
[2019-01-11] MEDS: MUPIROCIN 2% OINT 15gm or 22gm TOP SCH ×2 (09:53→22:49)
[2019-01-11] MEDS: CYANOCOBALAMIN 500 MCG TAB PEG SCH (09:53)
[2019-01-11] MEDS: amLODIPine BESYLATE 5 MG TAB PEG SCH (09:54)
[2019-01-11] MEDS: LOSARTAN POTASSIUM 50 MG TAB PEG SCH (09:54)
[2019-01-11] MEDS: FUROSEMIDE 40 MG TAB GT SCH (09:55)
[2019-01-11] MEDS: OMEPRAZOLE 20MG/10ML ORAL SUSP GT SCH (09:56)
--- NOTE | 2019-01-11 10:12 | NUR ---
3ml of residual from PEG tube. 200 ml free water given to patient.
--- NOTE | 2019-01-11 12:13 | NUR ---
PICC Per Dr Elliott, patient requires a PICC line. Flor RN, Forgesmith, notified, verbalized understanding.
[2019-01-11 12:15] LABS: Basophils # (auto) 0 uL; Basophils % (auto) 0.4 % (0.0-2.0); Eosinophils # (auto) 0.1 uL; Eosinophils % (auto) 1.3 % (0.0-7.0); Hematocrit 35.6 % (41.0-53.0); Hemoglobin 11.6 g/dL (13.5-17.5); Lymphocytes # (auto) 1.2 uL; Lymphocytes % (auto) 16.1 % (10.0-50.0); Mean Corpuscular Hemoglobin 29.1 pg (28.0-32.0); Mean Corpuscular Hgb Conc. 32.6 g/dL (32.0-36.0); Mean Corpuscular Volume 89.3 fL (80.0-100.0); Monocytes # (auto) 0.6 uL; Monocytes % (auto) 7.8 % (0.0-12.0); Neutrophils # (auto) 5.6 uL; Neutrophils % (auto) 74.4 % (37.0-80.0); Nucleated Red Blood Cells % 0.1 %; Platelet Count (auto) 172 10^3/uL (140-450); Red Blood Cells 3.98 10^6/uL (4.5-5.90); Red Cell Distribution Width 14.7 % (11.8-14.3); White Blood Cell 7.6 10^3/uL (4.4-10.8)
[2019-01-11 12:28] LABS: Albumin 2.7 g/dL (3.4-5.0); Calcium 8.7 mg/dL (8.5-10.1); Magnesium 2.8 mg/dL (1.6-2.6); Potassium 3.9 mmol/L (3.5-5.1)
[2019-01-11 12:31] LABS: Bilirubin, Total 0.4 mg/dL (0.2-1.0); Total Protein 7.8 g/dL (6.4-8.2)
[2019-01-11 13:00] VITALS: BP 133/82
--- NOTE | 2019-01-11 14:05 | NUR ---
Temperature Recheck Patient temperature rechecked at 98.7.
--- NOTE | 2019-01-11 14:44 | NUR ---
WOUND CARE NOTE: Wound care in to see patient for skin integrity monitoring. Patient is now in [facility]telemetry unit. Patient is resting on air bed in Rm. 202. Patient is awake and non- responsive. His current Duong score is 9. He's on vent via trach. Patient appears to in no pain using [place] Faces pain scale, however mild pain noted upon turning. Skin assessment done with the assistance of patient's nurse, EDWINA Davies. Patient noted with nurse with new sacral skin issue, photograph taken for reference. Patient's sacrum has 5x7cm has dark red/maroon, non-blanchable area with small open full thickness wound to Rt sacrum. Scant sanguinous drainage noted on open wound, no odor noted. bulmaro care given, applied Z Guard cream and covered sacrum with Opti foam sacral dressing. Stapled incision to Rt anterior scalp and behind Rt ear/scalp remain clean and dry with intact chip, left open to air. Repositioned patient for comfort facing his Lt. side, redistributed pressure points with pillows. EDWINA Davies at bedside. Patient is on tube feeding and Dietary is on board. RECOMMENDATION: Nursing to continue BID/PRN cleaning and application of Z Guard cream to sacrum per MD order, frequent bulmaro care/check, keep clean and dry, continue with skin/wound plan of care, continue monitoring by wound care while patient is hospitalized. Addendum: 01/11/19 at 1854 by Shikha Rogers RN Amended: Links added.
--- NOTE | 2019-01-11 14:46 | NUR ---
10mg of residual from PEG tube. 200ml of free water given. patient tolerated well.
--- NOTE | 2019-01-11 16:23 | NUR ---
New Duff Placed Duff catheter removed Order to discontinue Duff catheter and place a new Duff from Dr. Elliott. Explained to patient's family and they verbalized understanding. Duff dc'd with clean technique following deflation of balloon. Patient tolerated well. Duff catheter 14 gauge Mongolian inserted with clean sterile technique. Patient tolerated well.
[2019-01-11 17:07] VITALS: BP 120/71
--- NOTE | 2019-01-11 17:33 | NUR ---
25ml residual pulled from PEG tube and returned. 200ml of free water given. patient tolerated well.
--- NOTE | 2019-01-11 19:15 | NUR ---
Closing shift note Care endorsed to fabricator foam rubber rn
--- NOTE | 2019-01-11 19:20 | NUR ---
Opening Shift Note Received report from hemalatha Booth RN. Assumed care of patient, laying on air mattress bed with open eyes, arousable to mild painful stimuli, unable to follow commands, aphasic. No S/S of distress/SOB or pain noted. Patient has tracheostomy connected to mechanical ventilator, SIMV mode, oxygen saturation at 99%. Bed locked in lowest position, padded side rails up x2, bedside suction available, bed alarms on at all times. and 2 other family members at bedside, updated on POC. Will continue to monitor for changes Q1hr and PRN.
[2019-01-11 20:29] VITALS: BP 120/71
[2019-01-11 22:00] VITALS: BP 121/72
--- NOTE | 2019-01-11 22:00 | NUR ---
DRESSING CHANGED TO ABDOMEN. CLEANSED WOUND WITH NS, PAT DRY. APPLIED BACTROBAN OINTMENT, COVERED WITH GAUZE, THEN SECURED WITH TAPE. PATIENT TOLERATED WELL. SMALL AMOUNT OF YELLOW BROWN DRAINAGE NOTED.
[2019-01-11] MEDS: ATORVASTATIN 20 MG TAB PEG SCH (22:46)
[2019-01-12] MEDS: ACCU-CHEK COMFORT CURVE STRIP VI SCH ×6 (00:04→19:56)
[2019-01-12] MEDS: InsuLIN REG 1unit/0.01ml Soln (100units/ml) SC SCH ×6 (00:05→19:56)
[2019-01-12] MEDS: MEROPENEM 1GM IVPB 100 ML IV SCH ×3 (01:11→17:30)
[2019-01-12] MEDS: FREE WATER GT SCH ×6 (03:05→21:43)
[2019-01-12 05:00] VITALS: BP 137/82
[2019-01-12] MEDS: ALBUTEROL SULF 2.5 MG/0.5ML(0.5%) NEB SOLN NEB SCH ×4 (06:04→23:05)
--- NOTE | 2019-01-12 07:22 | NUR ---
Opening Shift Notes Assumed care of patient from shift production supervisor nurse. Patient is unresponsive, does not respond to name or pain. Patient has a trach and vent. Auscultated heart sounds, S1 and S2 noted. Auscultated lungs, wheezing and crackles noted on expiration. Patient was suctioned, and tolerated well. 3+ pitting edema noted on hands bilaterally. Patient position was changed to left side. Bed is raised 30 degrees, in lowest position, side rails up x2. Will continue to monitor.
[2019-01-12 09:00] VITALS: BP 115/77
--- NOTE | 2019-01-12 09:15 | NUR ---
Call to . Message left for Patsy, , about signing consent for PICC line placement, awaiting call back.
[2019-01-12] MEDS: LOSARTAN POTASSIUM 50 MG TAB PEG SCH (10:24)
[2019-01-12] MEDS: CYANOCOBALAMIN 500 MCG TAB PEG SCH (10:24)
[2019-01-12] MEDS: FUROSEMIDE 40 MG TAB GT SCH (10:24)
[2019-01-12] MEDS: ACETAMINOPHEN 650 mg PER 20 mL UD GT PRN (10:25)
[2019-01-12] MEDS: OMEPRAZOLE 20MG/10ML ORAL SUSP GT SCH (10:25)
[2019-01-12] MEDS: MUPIROCIN 2% OINT 15gm or 22gm TOP SCH ×2 (10:25→21:38)
[2019-01-12] MEDS: amLODIPine BESYLATE 5 MG TAB PEG SCH (10:25)
--- NOTE | 2019-01-12 10:50 | NUR ---
Placed on trach collar per verbal order from Dr. Velez. Fio2 40%, HR=84,RR=12, Sats=96%. B/S diminished bilateral.
[2019-01-12 13:00] VITALS: BP 131/73
--- NOTE | 2019-01-12 14:41 | NUR ---
Nutrition Follow-up Notes Wt.: 128.6 kg based on bed scale as of yesterday. Pt's on trach collar, RT at bedside when rounded this morning. Pt's no signs of distress noted earlier, currently NPO with EN support with Glucerna @ 60 ml/hr via PEG tube providing 1728 kcal, 76 gms proteins and 1159 ml free water, tolerates feeding had 30 ml residuals noted by RN this morning. Pt with adequate EN support d/t mod initiation rate delivery of concentrated formula aeb current EN infusion meets 77% to 86% of est caloric needs and 72% to 94% proteins needs. Est. Needs reassessed based on IBW (81 kg): 3875-2879 kcal (25-28 kcal/kgBW), 81-105 gms pro (1.0-1.3 gms/kgBW d/t severe hypoalbuminemia). Will continue to monitor pertinent labs and reassess nutrient need prn Labs: POC Gluc 195 H; 01/11/19 Gluc 176 H, Na 149 H, Cl 11 H, CO2 34 H, BUN 55 H, Mg 2.8 H, Alb 2.7 L Skin: Duong scale 9, high risk, pt's medial abdomen incision, right scalp incision dry and intact per engineering documentation specialist. Pls refer to latest chronograph operator's notes for further details re: tx plans. GI: Pt had 2x BM 01/11/19 per engineering documentation specialist. PES: Increased nutrient needs r/t acute/chronic medical condition aeb with trach, severe hypoalbuminemia, NPO with EN support via PEG tube Altered nutrition related lab values r/t current/chronic medical condition aeb elev BUN, hypocalcemia, hyperglycemia and severe hypoalb Will continue to monitor NPO status, EN tolerance, pertinent labs and weight trend. F/u in 2 to 3 days. Rec.: 1.) Consider gradual increase on feeding rate of Glucerna 1.2 Roberto to 70 ml/hr goal rate via PEG tube as tolerated when medically appropriate. 2.) If Albumin continues trending down, consider Prostat 1 pkt BID. 3.) Consider daily MVI with minerals and Asc acid 500 mgs BID prn. 4.) Refer pt to CDE/RD for further nutrition education and weight monitoring upon discharge. 5.) Continue current plan of care.
--- NOTE | 2019-01-12 15:36 | NUR ---
30ml of residual aspirated from PEG tube and replaced. 200ml of free water given, patient tolerated well.
--- NOTE | 2019-01-12 15:43 | NUR ---
25 ml of residual aspirated from PEG tube and returned. 200ml of free water administered, patient tolerated well.
--- NOTE | 2019-01-12 16:02 | NUR ---
Respiratory note: PT ASSESSED. REMAINS ON 40% COOL AEROSOL TRACH COLLAR. NO DISTRESS NOTED. HR 80 SPO2 98% RR 16.
[2019-01-12 17:00] VITALS: BP 131/79
--- NOTE | 2019-01-12 17:30 | NUR ---
at bedside I spoke to the about signing consent for the PICC line. She stated "I want to wait for my daughter, I will come in with her tomorrow."
--- NOTE | 2019-01-12 17:57 | NUR ---
5ml of residual aspirated from the PEG tube and returned. 200ml of free water administered, patient tolerated well.
--- NOTE | 2019-01-12 17:58 | NUR ---
Respiratory at bedside
--- NOTE | 2019-01-12 19:10 | NUR ---
Opening Shift Note Received report from hemalatha Davies RN. Assumed care of patient, laying on air mattress bed with open eyes, arousable to mild painful stimuli, unable to follow commands, aphasic. No S/S of distress/SOB or pain noted. Patient has tracheostomy connected to oxygen mask on 9L, oxygen saturation at 97%. Bed locked in lowest position, padded side rails up x2, bedside suction available, bed alarms on at all times. Patsy at bedside, updated on POC. Will continue to monitor for changes Q1hr and PRN.
--- NOTE | 2019-01-12 19:27 | NUR ---
Closing shift notes Endorsed care to restaurant shift leader rn
[2019-01-12] MEDS: ATORVASTATIN 20 MG TAB PEG SCH (21:36)
[2019-01-12 22:00] VITALS: BP 147/86
[2019-01-13] MEDS: InsuLIN REG 1unit/0.01ml Soln (100units/ml) SC SCH ×7 (00:38→23:13)
[2019-01-13] MEDS: MEROPENEM 1GM IVPB 100 ML IV SCH ×3 (01:31→17:12)
[2019-01-13] MEDS: FREE WATER GT SCH ×6 (01:32→22:58)
[2019-01-13] MEDS: ACCU-CHEK COMFORT CURVE STRIP VI SCH ×7 (04:07→23:12)
[2019-01-13 05:00] VITALS: BP 166/98
--- NOTE | 2019-01-13 05:41 | NUR ---
5 ml of residual aspirated from PEG tube and returned. 200ml of free water administered, patient tolerated well.
[2019-01-13] MEDS: ALBUTEROL SULF 2.5 MG/0.5ML(0.5%) NEB SOLN NEB SCH ×3 (06:31→19:07)
--- NOTE | 2019-01-13 07:30 | NUR ---
Opening Shift Note Assumed care of patient, awake and unable to make needs known. Respiratory even and unlabored. No S/S of distress/SOB or pain. Skin is warm and dry to touch. Turn q 2 hours prn. PEG intact, in place. Instructed on POC and to call for assist PRN, will continue to monitor for changes Q1hr and PRN.
[2019-01-13 09:00] VITALS: BP 137/78
--- NOTE | 2019-01-13 09:50 | NUR ---
5 ml of residual aspirated from PEG tube and returned. 200ml of free water administered, patient tolerated well.
[2019-01-13] MEDS: amLODIPine BESYLATE 5 MG TAB PEG SCH (09:59)
[2019-01-13] MEDS: CYANOCOBALAMIN 500 MCG TAB PEG SCH (10:00)
[2019-01-13] MEDS: LOSARTAN POTASSIUM 50 MG TAB PEG SCH (10:00)
[2019-01-13] MEDS: MUPIROCIN 2% OINT 15gm or 22gm TOP SCH ×2 (10:00→22:36)
[2019-01-13] MEDS: FUROSEMIDE 40 MG TAB GT SCH (10:00)
[2019-01-13] MEDS: OMEPRAZOLE 20MG/10ML ORAL SUSP GT SCH (10:57)
[2019-01-13] MEDS: ERGOCALCIFEROL 50,000 UNIT(1.25MG) CAP PO SCH (12:00)
--- NOTE | 2019-01-13 12:26 | NUR ---
Family refused PICC line.
[2019-01-13 13:00] VITALS: BP 113/73
--- NOTE | 2019-01-13 14:30 | NUR ---
5 ml of residual aspirated from PEG tube and returned. 200ml of free water administered, patient tolerated well.
[2019-01-13 17:00] VITALS: BP 122/66
--- NOTE | 2019-01-13 17:02 | NUR ---
Midline Placement: Patient educated on need for midline placement. All risks and benefits explained and all questions and concerns addresses prior to procedure. 18g/10cm midline inserted via right cephalic vein using Ultrasound. Sterile technique utilized. Blood return obtained from lumen and flushed easily with NS using proper technique. Midline secured with saline lock; biodisc and occlusive dressing applied. Primary RN notified. Midline lot #[id number]
--- NOTE | 2019-01-13 17:13 | NUR ---
5 ml of residual aspirated from PEG tube and returned. 200ml of free water administered, patient tolerated well.
--- NOTE | 2019-01-13 20:00 | NUR ---
Opening Shift Note Assumed care of patient. No S/S of distress/SOB or pain. Patient is on 9 liters of oxygen via trach oxygen mask. Patient's respirations even and unlabored. Patient's Duff is below the level of the bladder and is patent, draining, and not kinked. The patient's sacral wound was cleansed per MD order and new sacral optifoam was placed. Ritika care was done. Patient tolerated well. Instructed on POC and to call for assist PRN, will continue to monitor for changes Q1hr and PRN.
[2019-01-13] MEDS: Glucerna 1.2 Cal 1Liter BOTTLE GT SCH (20:31)
[2019-01-13 21:30] VITALS: BP 130/78
[2019-01-13] MEDS: ATORVASTATIN 20 MG TAB PEG SCH (22:35)
--- NOTE | 2019-01-13 22:58 | NUR ---
20 ML ASPIRATED, 200 ML FREE WATER ADMINISTRATED.
--- NOTE | 2019-01-14 00:11 | NUR ---
patient received complete linen change.
[2019-01-14] MEDS: ALBUTEROL SULF 2.5 MG/0.5ML(0.5%) NEB SOLN NEB SCH ×4 (01:03→17:51)
[2019-01-14] MEDS: MEROPENEM 1GM IVPB 100 ML IV SCH ×3 (01:03→16:41)
[2019-01-14] MEDS: FREE WATER GT SCH ×6 (01:50→22:45)
--- NOTE | 2019-01-14 01:50 | NUR ---
1 ML RESIDUAL ASPIRATED, 200 ML FREE WATER ADMINISTERED.
[2019-01-14] MEDS: ACCU-CHEK COMFORT CURVE STRIP VI SCH ×6 (03:20→23:35)
[2019-01-14] MEDS: InsuLIN REG 1unit/0.01ml Soln (100units/ml) SC SCH ×6 (03:21→23:38)
[2019-01-14 05:00] VITALS: BP 136/61
[2019-01-14 05:53] LABS: Basophils # (auto) 0 uL; Basophils % (auto) 0.6 % (0.0-2.0); Eosinophils # (auto) 0.2 uL; Eosinophils % (auto) 2.5 % (0.0-7.0); Hematocrit 32.6 % (41.0-53.0); Lymphocytes # (auto) 1.3 uL; Mean Corpuscular Hemoglobin 29.6 pg (28.0-32.0); Mean Corpuscular Hgb Conc. 33.8 g/dL (32.0-36.0); Mean Corpuscular Volume 87.5 fL (80.0-100.0); Monocytes # (auto) 0.6 uL; Monocytes % (auto) 7.7 % (0.0-12.0); Neutrophils # (auto) 5.4 uL; Neutrophils % (auto) 72.2 % (37.0-80.0); Nucleated Red Blood Cells % 0.1 %; Platelet Count (auto) 124 10^3/uL (140-450); Red Blood Cells 3.73 10^6/uL (4.5-5.90); Red Cell Distribution Width 14.1 % (11.8-14.3); White Blood Cell 7.5 10^3/uL (4.4-10.8)
--- NOTE | 2019-01-14 06:03 | NUR ---
10 ML OF RESIDUAL ASPIRATED FROM PEG TUBE AND RETURNED TO PATIENT. 200 ML OF FREE WATER GIVEN.
[2019-01-14 06:11] LABS: Potassium 4.2 mmol/L (3.5-5.1)
[2019-01-14 06:21] LABS: BUN/Creatinine Ratio 60.9; Calcium 8.3 mg/dL (8.5-10.1)
--- NOTE | 2019-01-14 06:22 | NUR ---
PT REMAINS OFF VENTILATOR. PT ON 40% COOL MYST VIA TRACH COLLAR. SHILEY #6.[address] SECURED AND PATENT. BS ARE INSPIRATORY RHONCHI TO AUSCULTATION. SKIN IS DRY AND WARM TO THE TOUCH. TRACH SUCTION DONE FOR SCANTY AMOUNT OF PALE SECRETION WITHOUT INCIDENT. PT TOLERATING WELL. RR16 BPM, HR 78 BPM. SHILEY SPARE UNIT AT BEDSIDE ALONG WITH OBTURATOR. BAG AND MASK UNIT AT BEDSIDE, ALONG WITH O2 SOURCE. INNER CANNULA REPLACED, DRAINAGE GAUZE REPLACED WELL. NO ACUTE DISTRESS NOTED. WILL CONTINUE TO MONITOR PT.
--- NOTE | 2019-01-14 07:00 | NUR ---
CLOSING NOTE A No S/S of distress/SOB or pain. Patient is on 9 liters of oxygen via trach oxygen mask. Patient's respirations even and unlabored. Patient's Duff is below the level of the bladder and is patent, draining, and not kinked.
--- NOTE | 2019-01-14 08:00 | NUR ---
Opening Shift Note Assumed care of patient, with spontaneous eye opening but non verbal, maximum assistance when turning every 2 hours. No S/S of distress/SOB or pain. With tracheostomy tube connected to continuous O2 at 9lpm. On continuous pulse oximetry reading-99%O2 sat. High risk for fall and low Duong score. Maintained on air mattress and turned to sides every 2 hours. Will continue to monitor for changes Q1hr and PRN.
[2019-01-14 08:49] VITALS: BP 131/66
[2019-01-14] MEDS: OMEPRAZOLE 20MG/10ML ORAL SUSP GT SCH (10:25)
[2019-01-14] MEDS: FUROSEMIDE 40 MG TAB GT SCH (10:26)
[2019-01-14] MEDS: amLODIPine BESYLATE 5 MG TAB PEG SCH (10:26)
[2019-01-14] MEDS: LOSARTAN POTASSIUM 50 MG TAB PEG SCH (10:27)
[2019-01-14] MEDS: MUPIROCIN 2% OINT 15gm or 22gm TOP SCH ×2 (10:27→22:46)
--- NOTE | 2019-01-14 10:30 | NUR ---
Spoke with patient's Patsy, they decided to put him on a jail facility once stable and after health insurance has been available.
[2019-01-14] MEDS: CYANOCOBALAMIN 500 MCG TAB PEG SCH (10:34)
--- NOTE | 2019-01-14 14:31 | NUR ---
Nutrition Follow-up Notes Wt.: 121.1 kg Pt's on trach collar, RT at bedside when rounded this morning. Pt's no signs of distress noted earlier, currently NPO with EN support with Glucerna @ 60 ml/hr via PEG tube providing 1728 kcal, 76 gms proteins and 1159 ml free water, tolerates feeding had 30 ml residuals noted by RN this morning. Pt with adequate EN support d/t mod initiation rate delivery of concentrated formula aeb current EN infusion meets 77% to 86% of est caloric needs and 72% to 94% proteins needs. Est. Needs reassessed based on IBW (81 kg): 3838-8666 kcal (25-28 kcal/kgBW), 81-105 gms pro (1.0-1.3 gms/kgBW d/t severe hypoalbuminemia). Will continue to monitor pertinent labs and reassess nutrient need prn Labs: BUN 42 H, CO2 34 H, CA 8.3 L, GLU 152 H Skin: Duong scale 12, high risk, pt's medial abdomen incision, right scalp incision dry and intact per documentation coordinator. Pls refer to latest farm marketer's notes for further details re: tx plans. GI: Pt had 1 BM on 01/13 per documentation coordinator. PES: Increased nutrient needs r/t acute/chronic medical condition aeb with trach, severe hypoalbuminemia, NPO with EN support via PEG tube Altered nutrition related lab values r/t current/chronic medical condition aeb elev BUN, hypocalcemia, hyperglycemia and severe hypoalb Will continue to monitor NPO status, EN tolerance, pertinent labs and weight trend. F/u in 2 to 3 days. Rec.: 1.) Consider gradual increase on feeding rate of Glucerna 1.2 Roberto to 70 ml/hr goal rate via PEG tube as tolerated when medically appropriate. 2.) If Albumin continues trending down, consider Prostat 1 pkt BID. 3.) Consider daily MVI with minerals and Asc acid 500 mgs BID prn. 4.) Refer pt to CDE/RD for further nutrition education and weight monitoring upon discharge. 5.) Continue current plan of care.
[2019-01-14 16:28] VITALS: BP 126/77
[2019-01-14 17:55] VITALS: BP 126/77
--- NOTE | 2019-01-14 20:00 | NUR ---
Opening Shift Note Assumed care of patient. No S/S of distress/SOB or pain. Patient is on 10 liters of oxygen via trach oxygen mask. Patient's respirations even and unlabored. Patient's Duff is below the level of the bladder and is patent, draining, and not kinked. The patient's sacral wound was cleansed per MD order and new sacral optifoam was placed. Ritika care was done. Oral care performed. Patient tolerated well. Instructed on POC and to call for assist PRN, will continue to monitor for changes Q1hr and PRN.
[2019-01-14 22:00] VITALS: BP 131/74
--- NOTE | 2019-01-14 22:45 | NUR ---
5 ML RESIDUAL ASPIRATED FROM PEG TUBE AND PLACED BACK INTO PATIENT, 200 ML FREE WATER GIVEN. Addendum: 01/15/19 at 0205 by Nayely Chandler RN ORAL CARE PERFORMED AND BERRIOS CARE PERFORMED.
[2019-01-14] MEDS: ATORVASTATIN 20 MG TAB PEG SCH (22:46)
[2019-01-15] MEDS: MEROPENEM 1GM IVPB 100 ML IV SCH ×2 (00:46→09:49)
[2019-01-15] MEDS: ALBUTEROL SULF 2.5 MG/0.5ML(0.5%) NEB SOLN NEB SCH ×4 (01:06→18:39)
--- NOTE | 2019-01-15 02:00 | NUR ---
1 ML OF RESIDUAL ASPIRATED FROM PEG TUBE AND RETURNED TO PATIENT, 200 ML FREE WATER GIVEN. ORAL CARE PERFORMED.
[2019-01-15] MEDS: FREE WATER GT SCH ×6 (02:03→22:19)
[2019-01-15] MEDS: ACCU-CHEK COMFORT CURVE STRIP VI SCH ×6 (03:45→23:50)
[2019-01-15] MEDS: InsuLIN REG 1unit/0.01ml Soln (100units/ml) SC SCH ×6 (03:49→23:53)
[2019-01-15 05:00] VITALS: BP 123/73
--- NOTE | 2019-01-15 06:19 | NUR ---
1 ML RESIDUAL ASPIRATED FROM PEG TUBE AND RETURNED TO PATIENT. 200 ML FREE WATER GIVEN. ORAL CARE PROVIDED.
--- NOTE | 2019-01-15 06:43 | NUR ---
RT NOTE: PT REMAINS OFF OF VENTILATOR, PT IS ON COOL AEROSOL 10 LPM 35%. PT HAS A 6.0 SHILEY, REPLACED TRACH GAUZE, TRACH TIES CLEAN AND DRY, NO REDNESS NOTED. SUCTIONED PT FOR SMALL AMOUNT OF CLEAR SECTIONS. WATER LEVEL ADEQUATE. WILL CONTINUE TO MONITOR PT.
--- NOTE | 2019-01-15 07:03 | NUR ---
CLOSING NOTE A No S/S of distress/SOB or pain. Patient is on 10 liters of oxygen via trach oxygen mask. Patient's respirations even and unlabored. Patient's Duff is below the level of the bladder and is patent, draining, and not kinked.
--- NOTE | 2019-01-15 08:00 | NUR ---
Opening Shift Note Assumed care of patient, awake but aphasic, motor activity is flaccid. No S/S of distress/SOB or pain. Turned to sides every 2 hours. Will continue to monitor for changes Q1hr and PRN.
[2019-01-15 08:48] VITALS: BP 128/74
--- NOTE | 2019-01-15 09:15 | NUR ---
PT at bedside, tried to sit up but patient is nonresponsive verbally and motor.
[2019-01-15] MEDS: OMEPRAZOLE 20MG/10ML ORAL SUSP GT SCH (09:49)
[2019-01-15] MEDS: LOSARTAN POTASSIUM 50 MG TAB PEG SCH (09:50)
[2019-01-15] MEDS: amLODIPine BESYLATE 5 MG TAB PEG SCH (09:51)
[2019-01-15] MEDS: FUROSEMIDE 40 MG TAB GT SCH (09:56)
[2019-01-15] MEDS: MUPIROCIN 2% OINT 15gm or 22gm TOP SCH ×2 (09:56→22:19)
[2019-01-15] MEDS: CYANOCOBALAMIN 500 MCG TAB PEG SCH (09:56)
--- NOTE | 2019-01-15 13:00 | NUR ---
Sacral wound care with thera honey done. Optifoam dressing changed. Continue care.
[2019-01-15 13:07] VITALS: BP 129/76
[2019-01-15] MEDS: CIPROFLOXACIN 400MG/200ML 200 ML IV SCH ×2 (13:59→22:19)
[2019-01-15] MEDS ORDERED: TOBRAMYCIN PER PHARMACY 0 ML IV SCH (14:30)
--- NOTE | 2019-01-15 16:34 | NUR ---
Patient unable to sign IM and was not at bedside.
[2019-01-15 16:58] VITALS: BP 124/76
[2019-01-15] MEDS: D5W 5% IV SCH (18:18)
[2019-01-15] MEDS: TOBRAMYCIN IV SCH (18:18)
--- NOTE | 2019-01-15 20:10 | NUR ---
OPENING SHIFT Assumed care of patient. No S/S of distress/SOB or pain. Patient is on 10 liters of oxygen via trach oxygen mask. Patient's respirations even and unlabored. Patient's Duff is below the level of the bladder and is patent, draining, and not kinked. The patient's sacral wound was cleansed per MD order and new sacral optifoam was placed. Ritika care was done. Patient tolerated well.Patient's is at bedside. Instructed on POC and to call for assist PRN, will continue to monitor for changes Q1hr and PRN. Addendum: 01/16/19 at 0142 by Nayely Chandler RN Thera Honey applied to sacral wound as well
[2019-01-15 22:04] VITALS: BP 144/86
--- NOTE | 2019-01-15 22:18 | NUR ---
PREVIOUS PEG TUBE INSERTION SITE CLEANSED WITH NORMAL SALINE, BACTROBAN OINTMENT APPLIED PER MD ORDER, NEW OPTIFOAM PLACED.
[2019-01-15] MEDS: ATORVASTATIN 20 MG TAB PEG SCH (22:19)
--- NOTE | 2019-01-15 22:19 | NUR ---
NO RESIDUAL ASPIRATED FROM PATIENT PEG TUBE, 200 ML FREE WATER GIVEN. ORAL CARE PROVIDED WITH CHLORHEXIDINE. PATIENT TOLERATED WELL.
--- NOTE | 2019-01-16 | NUR ---
BERRIOS CARE DONE.
[2019-01-16] MEDS: ALBUTEROL SULF 2.5 MG/0.5ML(0.5%) NEB SOLN NEB SCH ×5 (00:24→23:54)
[2019-01-16] MEDS: FREE WATER GT SCH ×6 (02:22→22:38)
--- NOTE | 2019-01-16 02:22 | NUR ---
NO RESIDUAL ASPIRATED FROM PEG TUBE, 200 ML FREE WATER ADMINISTERED. ORAL CARE PERFORMED. PATIENT TOLERATED WELL.
[2019-01-16] MEDS: ACCU-CHEK COMFORT CURVE STRIP VI SCH ×5 (04:02→22:38)
[2019-01-16] MEDS: InsuLIN REG 1unit/0.01ml Soln (100units/ml) SC SCH ×5 (04:03→20:00)
[2019-01-16] MEDS: Glucerna 1.2 Cal 1Liter BOTTLE GT SCH (04:17)
[2019-01-16 05:00] VITALS: BP 109/63
[2019-01-16] MEDS: CIPROFLOXACIN 400MG/200ML 200 ML IV SCH ×3 (06:33→22:38)
--- NOTE | 2019-01-16 06:33 | NUR ---
NO RESIDUAL ASPIRATED FROM PEG TUBE, 200 ML FREE WATER GIVEN. ORAL CARE PERFORMED. PATIENT TOLERATED WELL.
--- NOTE | 2019-01-16 07:00 | NUR ---
CLOSING NOTE No S/S of distress/SOB or pain. Patient is on 10 liters of oxygen via trach oxygen mask. Patient's respirations even and unlabored. Patient's Duff is below the level of the bladder and is patent, draining, and not kinked.
[2019-01-16 07:31] LABS: Basophils # (auto) 0 uL; Basophils % (auto) 0.5 % (0.0-2.0); Eosinophils # (auto) 0.2 uL; Eosinophils % (auto) 2.2 % (0.0-7.0); Hematocrit 32.5 % (41.0-53.0); Hemoglobin 11.3 g/dL (13.5-17.5); Lymphocytes # (auto) 1.3 uL; Lymphocytes % (auto) 16.7 % (10.0-50.0); Mean Corpuscular Hemoglobin 29.5 pg (28.0-32.0); Mean Corpuscular Hgb Conc. 34.8 g/dL (32.0-36.0); Monocytes # (auto) 0.5 uL; Monocytes % (auto) 6.5 % (0.0-12.0); Neutrophils # (auto) 5.8 uL; Neutrophils % (auto) 74.1 % (37.0-80.0); Nucleated Red Blood Cells % 0.1 %; Platelet Count (auto) 139 10^3/uL (140-450); Red Blood Cells 3.83 10^6/uL (4.5-5.90); Red Cell Distribution Width 14.3 % (11.8-14.3); White Blood Cell 7.8 10^3/uL (4.4-10.8)
[2019-01-16 07:39] LABS: BUN/Creatinine Ratio 50.6; Calcium 8.3 mg/dL (8.5-10.1); Potassium 3.8 mmol/L (3.5-5.1)
--- NOTE | 2019-01-16 07:45 | NUR ---
Opening Shift Note Assumed care of patient, awake on bed non verbal. No S/S of distress/SOB or pain. Tracheostomy tube in place and O2 at 10L, with melara catheter draining yellow color urine, peg tube in place running glucerna at 60mls/hr, noted incision with chip on forehead, behind the ear, and abdomen, noted pressure ulcer on sacral area with optifoam in place with minimal discharges, will continue to monitor for changes Q1hr and PRN.
[2019-01-16 09:00] VITALS: BP 119/77
[2019-01-16] MEDS: CYANOCOBALAMIN 500 MCG TAB PEG SCH (10:14)
[2019-01-16] MEDS: FUROSEMIDE 40 MG TAB GT SCH (10:14)
[2019-01-16] MEDS: LOSARTAN POTASSIUM 50 MG TAB PEG SCH (10:15)
[2019-01-16] MEDS: MUPIROCIN 2% OINT 15gm or 22gm TOP SCH ×2 (10:15→22:38)
[2019-01-16] MEDS: amLODIPine BESYLATE 5 MG TAB PEG SCH (10:15)
[2019-01-16] MEDS: OMEPRAZOLE 20MG/10ML ORAL SUSP GT SCH (10:16)
--- NOTE | 2019-01-16 10:45 | NUR ---
WOUND CARE NOTE: ORDERED UPGRADED TCB AIR BED FOR PATIENT AT THIS TIME. DC'D USE OF AIR MATTRESS. PATIENT TO SWAP OUT FROM AIR MATTRESS TO AIR BED PENDING DELIVERY BY JARRETT PARDO. ADVISED BEDSIDE NURSE.
--- NOTE | 2019-01-16 12:00 | NUR ---
wound dressing on sacral area, wound cleanse with wound cleanser, pat dry, therahoney and optifoam applied.
[2019-01-16 13:00] VITALS: BP 128/77
--- NOTE | 2019-01-16 14:27 | NUR ---
Nutrition Follow-up Notes Wt.: 121.0 kg as of yesterday. Pt's on vent via trach, no immediate family member at bedside during rounds this morning. Pt's no signs of distress noted earlier, currently NPO with EN support with Glucerna @ 60 ml/hr via PEG tube providing 1728 kcal, 76 gms proteins and 1159 ml free water, tolerates feeding, no residuals noted this morning, per nursing. Pt with adequate EN support d/t mod initiation rate delivery of concentrated formula aeb current EN infusion meets 77% to 86% of est caloric needs and 72% to 94% proteins needs. Est. Needs reassessed based on IBW (81 kg): 8527-4156 kcal (25-28 kcal/kgBW), 81-105 gms pro (1.0-1.3 gms/kgBW d/t severe hypoalbuminemia). Will continue to monitor pertinent labs and reassess nutrient need prn Labs: Gluc 162 H, BUN 40 H, CO2 35 H, Ca 8.3 L, Alb 2.7 L Skin: Duong scale 11, high risk, pt's medial abdomen incision, right scalp incision dry and intact per piper installer. Pls refer to latest clearance diver's notes for further details re: tx plans. GI: Pt had 1 BM this morning per piper installer. PES: Increased nutrient needs r/t acute/chronic medical condition aeb with trach, severe hypoalbuminemia, NPO with EN support via PEG tube Altered nutrition related lab values r/t current/chronic medical condition aeb elev BUN, hypocalcemia, hyperglycemia and severe hypoalb Will continue to monitor NPO status, EN tolerance, pertinent labs and weight trend. F/u in 2 to 3 days. Rec.: 1.) Consider gradual increase on feeding rate of Glucerna 1.2 Roberto to 70 ml/hr goal rate via PEG tube as tolerated when medically appropriate. 2.) If Albumin continues trending down, consider Prostat 1 pkt BID. 3.) Consider daily MVI with minerals and Asc acid 500 mgs BID prn. 4.) Refer pt to CDE/RD for further nutrition education and weight monitoring upon discharge. 5.) Continue current plan of care.
--- NOTE | 2019-01-16 16:25 | NUR ---
PT HAD BM, SOFT FORMED IN MODERATE AMOUNT, SACRAL AND MARK ANTHONY AREA CLEANED, THERAHONEY AND OPTIFOAM APPLIED TO SACRAL AREA.
[2019-01-16 17:00] VITALS: BP 134/84
[2019-01-16] MEDS: TOBRAMYCIN IV SCH (17:54)
[2019-01-16] MEDS: D5W 5% IV SCH (17:54)
--- NOTE | 2019-01-16 18:36 | NUR ---
PT REPOSITIONED AND TURNED EVERY 2 HOURS.
--- NOTE | 2019-01-16 19:30 | NUR ---
Opening shift note Patient in bed non verbal. Patient's respiration even and unlabored, no non verbal cues to pain noted and observed. Patient's respiration even and unlabored. Pt with trach in place, lung sounds with ronchi upon auscultation. Peg tube feeding at 60cc/hr tolerating well. Head of bed elevated. Duff cath draining moderate amount of clear yellow urine. Patient with SCD machine and marisabel boots in place. Family at bedside. Will continue to monitor.
[2019-01-16 22:00] VITALS: BP 134/88
[2019-01-16] MEDS: ATORVASTATIN 20 MG TAB PEG SCH (22:38)
[2019-01-17] VITALS (7 sets, daily range): BP systolic 120–151; BP diastolic 70–98
[2019-01-17] MEDS: ACCU-CHEK COMFORT CURVE STRIP VI SCH ×6 (00:13→20:16)
[2019-01-17] MEDS: InsuLIN REG 1unit/0.01ml Soln (100units/ml) SC SCH ×6 (00:13→20:20)
[2019-01-17] MEDS: FREE WATER GT SCH ×5 (02:05→18:19)
[2019-01-17] MEDS: CIPROFLOXACIN 400MG/200ML 200 ML IV SCH ×3 (05:32→22:50)
[2019-01-17] MEDS: ALBUTEROL SULF 2.5 MG/0.5ML(0.5%) NEB SOLN NEB SCH ×3 (07:14→17:58)
[2019-01-17] MEDS ORDERED: FUROSEMIDE 20 MG/2 ML VIAL IV ONE (10:00)
--- NOTE | 2019-01-17 10:00 | NUR ---
WOUND DRESSING CHANGED ON SACRAL AREA , WOUND CLEANSED WITH WOUND CLEANSER, PAT DRY, THERAHONEY AND OPTIFOAM APPLIED. PEG TUBE INCISION DRESSING CHANGED, BACTROBAN OINTMENT APPLIED TO INCISION.
[2019-01-17] MEDS: LOSARTAN POTASSIUM 50 MG TAB PEG SCH (10:11)
[2019-01-17] MEDS: FUROSEMIDE 40 MG TAB GT SCH (10:11)
[2019-01-17] MEDS: CYANOCOBALAMIN 500 MCG TAB PEG SCH (10:12)
[2019-01-17] MEDS: amLODIPine BESYLATE 5 MG TAB PEG SCH (10:12)
[2019-01-17] MEDS: MUPIROCIN 2% OINT 15gm or 22gm TOP SCH ×2 (10:13→22:00)
[2019-01-17] MEDS: OMEPRAZOLE 20MG/10ML ORAL SUSP GT SCH (10:14)
[2019-01-17] MEDS: Glucerna 1.2 Cal 1Liter BOTTLE GT SCH (14:24)
[2019-01-17] MEDS: TOBRAMYCIN IV SCH (18:34)
[2019-01-17] MEDS: D5W 5% IV SCH (18:34)
[2019-01-17] MEDS: ATORVASTATIN 20 MG TAB PEG SCH (22:50)
[2019-01-18] MEDS: ALBUTEROL SULF 2.5 MG/0.5ML(0.5%) NEB SOLN NEB SCH ×4 (00:12→18:17)
[2019-01-18] MEDS: FREE WATER GT SCH ×4 (00:31→18:15)
[2019-01-18] MEDS: ACCU-CHEK COMFORT CURVE STRIP VI SCH ×6 (00:35→20:22)
[2019-01-18] MEDS: InsuLIN REG 1unit/0.01ml Soln (100units/ml) SC SCH ×6 (00:36→20:22)
[2019-01-18 05:07] VITALS: BP 107/71
[2019-01-18 05:37] LABS: Basophils # (auto) 0 uL; Basophils % (auto) 0.3 % (0.0-2.0); Eosinophils # (auto) 0.2 uL; Hematocrit 33.3 % (41.0-53.0); Hemoglobin 11.8 g/dL (13.5-17.5); Lymphocytes # (auto) 1.5 uL; Lymphocytes % (auto) 18.9 % (10.0-50.0); Mean Corpuscular Hemoglobin 29.7 pg (28.0-32.0); Mean Corpuscular Hgb Conc. 35.4 g/dL (32.0-36.0); Monocytes # (auto) 0.7 uL; Monocytes % (auto) 9.3 % (0.0-12.0); Neutrophils # (auto) 5.4 uL; Neutrophils % (auto) 69.5 % (37.0-80.0); Platelet Count (auto) 137 10^3/uL (140-450); Red Blood Cells 3.97 10^6/uL (4.5-5.90); Red Cell Distribution Width 14.8 % (11.8-14.3); White Blood Cell 7.7 10^3/uL (4.4-10.8)
[2019-01-18 05:58] LABS: BUN/Creatinine Ratio 40.3; Calcium 8.6 mg/dL (8.5-10.1); Potassium 3.4 mmol/L (3.5-5.1)
[2019-01-18] MEDS: CIPROFLOXACIN 400MG/200ML 200 ML IV SCH ×3 (06:10→21:39)
--- NOTE | 2019-01-18 07:20 | NUR ---
Opening Shift Note Assumed care of patient, awake and alert. No S/S of distress/SOB or pain. Instructed on POC. Will continue to monitor for changes Q1hr and PRN. Patient bed locked in lowest position. All IV tubing patent and running, peg tube patent and running. patient connected to trach collar O2 at 10 l. Saturation is 94 %. Patient responsive to verbal communication via eye movement.
--- NOTE | 2019-01-18 08:30 | NUR ---
PATIENT TURNED AND REPOSITIONED TO LEFT SIDE. NO SIGNS AND SYMPTOMS OF DISTRESS NOTED.
[2019-01-18 09:00] VITALS: BP 156/107
[2019-01-18] MEDS: OMEPRAZOLE 20MG/10ML ORAL SUSP GT SCH (10:00)
[2019-01-18] MEDS: CYANOCOBALAMIN 500 MCG TAB PEG SCH (10:00)
--- NOTE | 2019-01-18 10:40 | NUR ---
WOUND CARE NOTE: IN TO SEE PATIENT AT THIS TIME TO ASSESS SACRAL WOUND. PATIENT IS RESTING ON TCB AIR BED. CURRENT SANDRO SCORE IS 9, PATIENT IS NON-RESPONSIVE. PATIENT HAS DEVELOPED A DTI TO THE SACRUM THAT IS EVOLVING. CURRENTLY, PATIENT'S WOUND IS 4.5 X 6 CM. WOUND IS NOW OPEN/EVOLVED TO STAGE 2. THERE ARE TWO LARGE AREAS THAT ARE PURPLE/ECCHYMOTIC, WITH OPEN RED PARTIAL THICKNESS AREAS TO BOTH RIGHT AND LEFT SACRUM. APPLIED THERAHONEY GAUZE AND OPTIFOAM GENTLE SACRAL DRESSING TO WOUND. PATIENT HAS ALVAREZ FOAM BOOT APPLIED TO BILATERAL HEELS. ALVARZE BOOTS REMOVED, SO TO ASSESS SKIN. PATIENT'S FEET/HEELS ARE PINK, BLANCHABLE. ALVAREZ FOAM BOOT REAPPLIED. PATIENT REPOSITIONED ONTO RIGHT SIDE, REDISTRIBUTING PRESSURE POINTS USING 2 PILLOWS, AVOIDING PRESSURE TO SACRAL SKIN. NEW WOUND PHOTOS TAKEN AT THIS TIME FOR REFERENCE. RECOMMEND: DAILY/PRN DRESSING CHANGES TO SACRAL WOUND, WITH THERAHONEY GAUZE AND OPTIFOAM GENTLE SACRAL DRESSING, SIDE TO SIDE POSITIONING, AVOIDING SUPINE POSITION, CONTINUE WITH ALL OTHER SKIN/WOUND ORDERS PREVIOUSLY PRESCRIBED BY MD. WOUND CARE TEAM WILL CONTINUE TO MONITOR. Addendum: 01/18/19 at 1505 by Shelia Roth RN Amended: Links added.
--- NOTE | 2019-01-18 10:50 | NUR ---
PATIENT REPOSITIONED WITH WOUND CARE NURSE. DRESSINGS CHANGED PHOTOS TAKEN AND PATIENT PLACED ON RIGHT SIDE.
[2019-01-18] MEDS: FUROSEMIDE 40 MG TAB GT SCH (10:52)
[2019-01-18] MEDS: amLODIPine BESYLATE 5 MG TAB PEG SCH (10:52)
[2019-01-18] MEDS: MUPIROCIN 2% OINT 15gm or 22gm TOP SCH ×2 (10:53→21:39)
[2019-01-18] MEDS: LOSARTAN POTASSIUM 50 MG TAB PEG SCH (10:54)
[2019-01-18 13:00] VITALS: BP 157/102
[2019-01-18] MEDS: hydrALAZINE HCL 20 MG/ML VL IV PRN (13:21)
[2019-01-18 17:00] VITALS: BP 122/76
[2019-01-18] MEDS ORDERED: POTASSIUM EFFERVESENT TAB 25 MEQ GT ONE (17:00)
[2019-01-18] MEDS: ARTIFICIAL TEARS 15ml EACHEYE ONE ×2 (17:00→17:19)
--- NOTE | 2019-01-18 19:50 | NUR ---
Opening shift note Patient in bed alert but not oriented. Pt non verbal. Pt's respiration even and and unlabored. Trach collar intact. No non verbal cues to pain noted and observed. Peg tube intact and patent with dressing clean and dry. No signs and symptoms of infection to insertion site. Abdomen soft and non tender. Duff catheter patent and intact draining moderate amount of clear yellow urine without sediments. Patient with scd machine to BLE tolerating well. Liberty boots in place. Kept head elevated.Family at bedside, all concerns and questions addressed. Will continue to monitor.
--- NOTE | 2019-01-18 21:26 | NUR ---
TRACH SUCTION PROVIDED WITH MINIMAL THICK WHITE SECRETION, TRACH DRESSING CHANGED, PATIENT TOLERATED PROCEDURE WELL.
--- NOTE | 2019-01-18 21:26 | NUR ---
SXNED MODERATE AMOUNT OF THICK YELLOW SECRETIONS. SAT 97% ON 35% FIO2, WATER LEVEL ADEQUATE. DRESSING CHANGED. NO SOB NOTED
[2019-01-18] MEDS: ATORVASTATIN 20 MG TAB PEG SCH (21:39)
[2019-01-18 22:00] VITALS: BP 142/92
[2019-01-19] MEDS: ALBUTEROL SULF 2.5 MG/0.5ML(0.5%) NEB SOLN NEB SCH ×5 (00:02→22:46)
[2019-01-19] MEDS: ACCU-CHEK COMFORT CURVE STRIP VI SCH ×6 (00:11→20:05)
[2019-01-19] MEDS: FREE WATER GT SCH ×4 (00:12→16:48)
[2019-01-19] MEDS: InsuLIN REG 1unit/0.01ml Soln (100units/ml) SC SCH ×6 (00:12→20:00)
[2019-01-19 05:00] VITALS: BP 150/91
[2019-01-19 05:34] LABS: Basophils # (auto) 0 uL; Basophils % (auto) 0.4 % (0.0-2.0); Eosinophils # (auto) 0.1 uL; Eosinophils % (auto) 1.5 % (0.0-7.0); Hematocrit 34.4 % (41.0-53.0); Lymphocytes % (auto) 13.5 % (10.0-50.0); Mean Corpuscular Hemoglobin 29.9 pg (28.0-32.0); Mean Corpuscular Hgb Conc. 34.8 g/dL (32.0-36.0); Mean Corpuscular Volume 85.7 fL (80.0-100.0); Monocytes # (auto) 0.7 uL; Monocytes % (auto) 9.4 % (0.0-12.0); Neutrophils # (auto) 5.7 uL; Neutrophils % (auto) 75.2 % (37.0-80.0); Platelet Count (auto) 153 10^3/uL (140-450); Red Blood Cells 4.01 10^6/uL (4.5-5.90); Red Cell Distribution Width 14.3 % (11.8-14.3); White Blood Cell 7.6 10^3/uL (4.4-10.8)
[2019-01-19 05:52] LABS: Calcium 8.6 mg/dL (8.5-10.1); Potassium 3.7 mmol/L (3.5-5.1)
[2019-01-19 05:54] LABS: BUN/Creatinine Ratio 37.8
[2019-01-19] MEDS ORDERED: TOBRAMYCIN IV SCH (06:00)
[2019-01-19] MEDS ORDERED: D5W 5% IV SCH (06:00)
--- NOTE | 2019-01-19 06:12 | NUR ---
Respiratory note: PT TRACH SITE CLEAN, AND DRY. NO SKIN BREAK DOWN NOTED.
[2019-01-19] MEDS: CIPROFLOXACIN 400MG/200ML 200 ML IV SCH ×3 (06:16→21:11)
--- NOTE | 2019-01-19 06:46 | NUR ---
TOBRAMYCIN ORDER PER PHARMACY WILL SEND TO FLOOR.
--- NOTE | 2019-01-19 07:20 | NUR ---
Opening Shift Note Assumed care of patient, patient alert via eye movement. No S/S of distress/SOB or pain. Instructed on POC and to call for assist PRN, will continue to monitor for changes Q1hr and PRN. Bed locked in lowest position with two side rails up and call light in reach.
--- NOTE | 2019-01-19 07:21 | NUR ---
CALLED PHARMACY TO CHANGE TIME OF ADMINISTRATION FOR TOBRAMYCIN SINCE CIPRO IS STILL RUNNING. PER PHARMACY, WILL CHANGE TIME TO 0800H. WILL ENDORSE TO AM SHIFT RN.
[2019-01-19] MEDS: D5W 5% IV SCH (08:29)
[2019-01-19] MEDS: TOBRAMYCIN IV SCH (08:29)
[2019-01-19 09:00] VITALS: BP 145/97
[2019-01-19] MEDS: FUROSEMIDE 40 MG TAB GT SCH (09:28)
[2019-01-19] MEDS: amLODIPine BESYLATE 5 MG TAB PEG SCH (09:29)
[2019-01-19] MEDS: LOSARTAN POTASSIUM 50 MG TAB PEG SCH (09:29)
[2019-01-19] MEDS: MUPIROCIN 2% OINT 15gm or 22gm TOP SCH ×2 (09:30→21:12)
[2019-01-19] MEDS: OMEPRAZOLE 20MG/10ML ORAL SUSP GT SCH (10:03)
[2019-01-19] MEDS: CYANOCOBALAMIN 500 MCG TAB PEG SCH (10:03)
--- NOTE | 2019-01-19 11:15 | NUR ---
DR MUHAMMAD ROUNDING ORDERS RECEIVED WILL CARRY OUT.
[2019-01-19] MEDS ORDERED: ARTIFICIAL TEARS 15ml EACHEYE PRN (12:15)
[2019-01-19 13:00] VITALS: BP 138/85
--- NOTE | 2019-01-19 16:39 | NUR ---
PER PHARMACY ARTIFICIAL EYE DROPS ARE OUT OF STOCK UNTIL TOMORROW.
[2019-01-19 17:29] VITALS: BP 113/82
--- NOTE | 2019-01-19 19:06 | NUR ---
Opening Shift Note Assumed care of patient, awake with eyes open unable to respond. No S/S of distress/SOB or pain. Instructed family on POC, will continue to monitor for changes Q1hr and PRN. Side rails up x2. Bed locked in lowest position. Call light within reach. Trach collar on at 10L. Family at bedside.
--- NOTE | 2019-01-19 20:16 | NUR ---
Patient coughing up moderate amount of light yellow sputum. Suctioned patients trachea. Patient tolerated well.
[2019-01-19] MEDS: ATORVASTATIN 20 MG TAB PEG SCH (21:12)
[2019-01-19 21:51] VITALS: BP 104/61
[2019-01-20] MEDS: FREE WATER GT SCH ×5 (00:06→23:57)
[2019-01-20] MEDS: ACCU-CHEK COMFORT CURVE STRIP VI SCH ×7 (00:06→23:58)
--- NOTE | 2019-01-20 00:16 | NUR ---
Wound dressing changed on sacrum. Patient tolerated well.
[2019-01-20] MEDS: InsuLIN REG 1unit/0.01ml Soln (100units/ml) SC SCH ×8 (00:19→23:58)
[2019-01-20 05:03] VITALS: BP 141/83
[2019-01-20] MEDS: CIPROFLOXACIN 400MG/200ML 200 ML IV SCH ×3 (06:04→21:57)
[2019-01-20 06:09] LABS: Calcium 8.6 mg/dL (8.5-10.1); Potassium 3.4 mmol/L (3.5-5.1)
--- NOTE | 2019-01-20 07:10 | NUR ---
Endorsed care to day shift RN.
[2019-01-20] MEDS: ALBUTEROL SULF 2.5 MG/0.5ML(0.5%) NEB SOLN NEB SCH ×3 (07:54→18:28)
[2019-01-20 09:00] VITALS: BP 156/91
[2019-01-20] MEDS ORDERED: POTASSIUM EFFERVESENT TAB 25 MEQ GT ONE (10:30)
[2019-01-20] MEDS: FUROSEMIDE 40 MG TAB GT SCH (11:58)
[2019-01-20] MEDS: OMEPRAZOLE 20MG/10ML ORAL SUSP GT SCH (11:59)
[2019-01-20] MEDS: LOSARTAN POTASSIUM 50 MG TAB PEG SCH (11:59)
[2019-01-20] MEDS: CYANOCOBALAMIN 500 MCG TAB PEG SCH (11:59)
[2019-01-20] MEDS: amLODIPine BESYLATE 5 MG TAB PEG SCH (11:59)
[2019-01-20] MEDS: MUPIROCIN 2% OINT 15gm or 22gm TOP SCH ×2 (12:00→21:57)
[2019-01-20] MEDS: ERGOCALCIFEROL 50,000 UNIT(1.25MG) CAP PO SCH (12:00)
[2019-01-20 13:00] VITALS: BP 124/88
--- NOTE | 2019-01-20 15:39 | NUR ---
Nutrition Follow-up Notes Wt.: 121.0 kg as of yesterday. Pt's on vent via trach, asleep, no immediate family member at bedside during rounds this morning. Pt's no signs of distress noted earlier, currently NPO with EN support with Glucerna @ 60 ml/hr via PEG tube providing 1728 kcal, 76 gms proteins and 1159 ml free water, tolerates feeding, no residuals noted this morning, per nursing. Pt with adequate EN support d/t mod initiation rate delivery of concentrated formula aeb current EN infusion meets 77% to 86% of est caloric needs and 72% to 94% proteins needs. Est. Needs reassessed based on IBW (81 kg): 9722-5259 kcal (25-28 kcal/kgBW), 81-105 gms pro (1.0-1.3 gms/kgBW d/t severe hypoalbuminemia). Will continue to monitor pertinent labs and reassess nutrient need prn Labs: Gluc 160 H, BUN 30 H, K 3.4 L, CO2 33 H, Ca 8.3 L, Alb 2.7 L Skin: Duong scale 9, high risk, pt's medial abdomen incision, right scalp incision dry and intact per singing teacher. Pls refer to latest wrapper selector's notes for further details re: tx plans. GI: Pt had 1 BM 01/16/19 per singing teacher. PES: Increased nutrient needs r/t acute/chronic medical condition aeb with trach, severe hypoalbuminemia, NPO with EN support via PEG tube Altered nutrition related lab values r/t current/chronic medical condition aeb elev BUN, hypocalcemia, hyperglycemia and severe hypoalb Will continue to monitor NPO status, EN tolerance, pertinent labs and weight trend. F/u in 2 to 3 days. Rec.: 1.) Consider gradual increase on feeding rate of Glucerna 1.2 Roberto to 70 ml/hr goal rate via PEG tube as tolerated when medically appropriate. 2.) Consider daily MVI with minerals and Asc acid 500 mgs BID prn. 3.) If Albumin continues trending down, consider Prostat 1 pkt BID. 4.) Refer pt's family to CDE/RD for further nutrition education and weight monitoring upon discharge. 5.) Continue current plan of care.
[2019-01-20 17:00] VITALS: BP 144/79
--- NOTE | 2019-01-20 19:06 | NUR ---
Opening Shift Note Assumed care of patient, awake, No S/S of distress/SOB or pain. Will continue to monitor for changes Q1hr and PRN. Side rails up x2. Bed locked in lowest position.
--- NOTE | 2019-01-20 20:24 | NUR ---
Called Pharmacy regarding tobramycin, pharmacy will bullet up medication.
[2019-01-20] MEDS: TOBRAMYCIN IV SCH (20:37)
[2019-01-20] MEDS: D5W 5% IV SCH (20:37)
[2019-01-20] MEDS: ATORVASTATIN 20 MG TAB PEG SCH (21:57)
[2019-01-20 22:00] VITALS: BP 120/73
--- NOTE | 2019-01-21 | NUR ---
20ml of residual aspirated from PEG tube and replaced. 200ml of free water given, patient tolerated well. Addendum: 01/21/19 at 0739 by RON HERNANDEZ RN RN 100 ml of free water
[2019-01-21] MEDS: ALBUTEROL SULF 2.5 MG/0.5ML(0.5%) NEB SOLN NEB SCH ×4 (00:17→18:51)
[2019-01-21 01:51] VITALS: BP 120/73
--- NOTE | 2019-01-21 04:00 | NUR ---
Bed bath provided with clean gown and linens. Abdominal wound and sacrum cleansed and dressing changed.
[2019-01-21] MEDS: InsuLIN REG 1unit/0.01ml Soln (100units/ml) SC SCH ×5 (04:35→20:28)
[2019-01-21] MEDS: ACCU-CHEK COMFORT CURVE STRIP VI SCH ×5 (04:35→20:28)
[2019-01-21 05:30] VITALS: BP 132/75
[2019-01-21] MEDS: FREE WATER GT SCH ×3 (05:48→18:03)
[2019-01-21] MEDS: CIPROFLOXACIN 400MG/200ML 200 ML IV SCH ×3 (05:48→22:35)
--- NOTE | 2019-01-21 06:00 | NUR ---
10ml of residual aspirated from PEG tube and replaced. 200ml of free water given, patient tolerated well. Addendum: 01/21/19 at 0738 by RON HERNANDEZ RN RN 100 ml of free water
--- NOTE | 2019-01-21 07:32 | NUR ---
Endorsed care to day shift RN.
[2019-01-21 09:00] VITALS: BP 130/78
[2019-01-21] MEDS: OMEPRAZOLE 20MG/10ML ORAL SUSP GT SCH (10:15)
[2019-01-21] MEDS: CYANOCOBALAMIN 500 MCG TAB PEG SCH (10:15)
[2019-01-21] MEDS: FUROSEMIDE 40 MG TAB GT SCH (10:16)
[2019-01-21] MEDS: LOSARTAN POTASSIUM 50 MG TAB PEG SCH (10:17)
[2019-01-21] MEDS: amLODIPine BESYLATE 5 MG TAB PEG SCH (10:17)
[2019-01-21] MEDS: MUPIROCIN 2% OINT 15gm or 22gm TOP SCH ×2 (10:17→22:36)
[2019-01-21 13:00] VITALS: BP 136/84
--- NOTE | 2019-01-21 15:09 | NUR ---
Residual Check Check the patient's residual from the Peg tube at 0800hrs and received less than 10ml. Will continue to monitor.
[2019-01-21 17:00] VITALS: BP 136/82
--- NOTE | 2019-01-21 19:20 | NUR ---
Opening Shift Note Assumed care of patient, he is not awake or alert. No S/S of distress/SOB or pain. Glucerna is running at 60mls/hr to the peg tube, peg tube dressing is C/D/I. Duff is hung below bladder and draining clear, yellow urine. Patient was repositioned to the right side with the HOB elevated for comfort. Instructed on POC and to call for assist PRN. All questions and concerns answered, will continue to monitor for changes Q1hr and PRN.
[2019-01-21 21:48] VITALS: BP 125/72
--- NOTE | 2019-01-21 22:00 | NUR ---
Verified placement of peg tube with auscultation and aspiration prior to administering medications. No residual on aspiration. Medications given as ordered.
[2019-01-21] MEDS: ATORVASTATIN 20 MG TAB PEG SCH (22:35)
--- NOTE | 2019-01-22 | NUR ---
No residual aspirated from peg tube. 100 mL of free water given. HOB is greater than 45 degrees. Will continue to monitor.
[2019-01-22] MEDS: FREE WATER GT SCH ×4 (00:13→18:09)
[2019-01-22] MEDS: ACCU-CHEK COMFORT CURVE STRIP VI SCH ×6 (00:13→20:27)
[2019-01-22] MEDS: InsuLIN REG 1unit/0.01ml Soln (100units/ml) SC SCH ×6 (00:13→20:27)
[2019-01-22] MEDS: ALBUTEROL SULF 2.5 MG/0.5ML(0.5%) NEB SOLN NEB SCH ×4 (00:45→18:15)
[2019-01-22] MEDS: CIPROFLOXACIN 400MG/200ML 200 ML IV SCH ×3 (05:43→22:30)
--- NOTE | 2019-01-22 05:52 | NUR ---
No residual aspirated from peg tube. 100 mL of free water given. HOB is greater than 45 degrees. Will continue to monitor.
[2019-01-22 07:33] LABS: Basophils # (auto) 0 uL; Basophils % (auto) 0.2 % (0.0-2.0); Eosinophils # (auto) 0.1 uL; Eosinophils % (auto) 1.3 % (0.0-7.0); Hematocrit 33.1 % (41.0-53.0); Hemoglobin 11.5 g/dL (13.5-17.5); Lymphocytes # (auto) 1.3 uL; Mean Corpuscular Hemoglobin 30.1 pg (28.0-32.0); Mean Corpuscular Hgb Conc. 34.8 g/dL (32.0-36.0); Mean Corpuscular Volume 86.5 fL (80.0-100.0); Monocytes # (auto) 0.9 uL; Monocytes % (auto) 9.4 % (0.0-12.0); Neutrophils # (auto) 6.8 uL; Neutrophils % (auto) 75.1 % (37.0-80.0); Platelet Count (auto) 160 10^3/uL (140-450); Red Blood Cells 3.82 10^6/uL (4.5-5.90); Red Cell Distribution Width 14.7 % (11.8-14.3); White Blood Cell 9.1 10^3/uL (4.4-10.8)
--- NOTE | 2019-01-22 08:00 | NUR ---
Opening Shift Note Assumed care of patient, awake and alertslee. Addendum: 01/22/19 at 1252 by ANGELA RODARTE RN RN Opening Shift Note Assumed care of patient, sleeping in bed. No S/S of distress/SOB or pain. Bed in locked and lowest position. Will continue to monitor for changes Q1hr and PRN.
[2019-01-22] MEDS: D5W 5% IV SCH (08:17)
[2019-01-22] MEDS: TOBRAMYCIN IV SCH (08:17)
--- NOTE | 2019-01-22 08:20 | NUR ---
re-assessment I have left a message for Tree Casey of [facility] letting him know that I need an update on patients medi-yoseph. I have also left a message for patients daughter Soraya asking for a return call regarding patients discharge plan. Waiting for call back now. Addendum: 01/22/19 at 0822 by Heaven GIANG Amended: Links added.
[2019-01-22 09:00] VITALS: BP 156/89
--- NOTE | 2019-01-22 09:33 | NUR ---
Dr. Resendiz on unit regarding patient.
[2019-01-22] MEDS ORDERED: ENOXAPARIN SOD 40 MG/0.4 ML SYRINGE SC ONE (09:45)
[2019-01-22] MEDS: FUROSEMIDE 40 MG TAB GT SCH (10:22)
[2019-01-22] MEDS: LOSARTAN POTASSIUM 50 MG TAB PEG SCH (10:22)
[2019-01-22] MEDS: CYANOCOBALAMIN 500 MCG TAB PEG SCH (10:23)
[2019-01-22] MEDS: amLODIPine BESYLATE 5 MG TAB PEG SCH (10:23)
[2019-01-22] MEDS: OMEPRAZOLE 20MG/10ML ORAL SUSP GT SCH (10:48)
[2019-01-22] MEDS: MUPIROCIN 2% OINT 15gm or 22gm TOP SCH ×2 (10:49→22:30)
--- NOTE | 2019-01-22 11:06 | NUR ---
PT PERFORMED PROM IN BED. PT WAS UNRESPONSIVE THE WHOLE TIME. Addendum: 01/22/19 at 1106 by MERY CHARLES PTT Amended: Links added.
--- NOTE | 2019-01-22 12:27 | NUR ---
Nutrition Follow-up Notes Wt.: 121.0 kg Pt's on vent via trach, with PT, no immediate family member at bedside during rounds this morning. Pt's no signs of distress noted earlier, currently NPO with EN support with Glucerna @ 60 ml/hr via PEG tube providing 1728 kcal, 76 gms proteins and 1159 ml free water, tolerates feeding, with 10 ml residuals noted this morning, per nursing. Pt with adequate EN support d/t mod initiation rate delivery of concentrated formula aeb current EN infusion meets 77% to 86% of est caloric needs and 72% to 94% proteins needs. Est. Needs reassessed based on IBW (81 kg): 2110-4470 kcal (25-28 kcal/kgBW), 81-105 gms pro (1.0-1.3 gms/kgBW d/t severe hypoalbuminemia). Will continue to monitor pertinent labs and reassess nutrient need prn Labs: No new labs today GLU POC 135 H Skin: Duong scale 10, high risk, pt's medial abdomen incision, right scalp incision dry and intact per automobile bumper straightener. Pls refer to latest banana room cutter's notes for further details re: tx plans. GI: Pt had 1 BM 01/16/19 per automobile bumper straightener. PES: Increased nutrient needs r/t acute/chronic medical condition aeb with trach, severe hypoalbuminemia, NPO with EN support via PEG tube Altered nutrition related lab values r/t current/chronic medical condition aeb elev BUN, hypocalcemia, hyperglycemia and severe hypoalb Will continue to monitor NPO status, EN tolerance, pertinent labs and weight trend. F/u in 2 to 3 days. Rec.: 1.) Consider gradual increase on feeding rate of Glucerna 1.2 Roberto to 70 ml/hr goal rate via PEG tube as tolerated when medically appropriate. 2.) Consider daily MVI with minerals and Asc acid 500 mgs BID prn. 3.) If Albumin continues trending down, consider Prostat 1 pkt BID. 4.) Refer pt's family to CDE/RD for further nutrition education and weight monitoring upon discharge. 5.) Continue current plan of care.
[2019-01-22 13:00] VITALS: BP 135/75
[2019-01-22 17:00] VITALS: BP 130/72
--- NOTE | 2019-01-22 20:52 | NUR ---
Dressing change WOUND DRESSING CHANGED ON SACRAL AREA , WOUND CLEANSED WITH NS, PAT DRY and THERAHONEY AND OPTIFOAM APPLIED.
[2019-01-22 22:08] VITALS: BP 124/72
[2019-01-22] MEDS: ATORVASTATIN 20 MG TAB PEG SCH (22:30)
[2019-01-23] MEDS: FREE WATER GT SCH ×4 (00:12→18:30)
[2019-01-23] MEDS: ACCU-CHEK COMFORT CURVE STRIP VI SCH ×6 (00:12→20:37)
[2019-01-23] MEDS: InsuLIN REG 1unit/0.01ml Soln (100units/ml) SC SCH ×6 (00:13→20:37)
[2019-01-23] MEDS: ALBUTEROL SULF 2.5 MG/0.5ML(0.5%) NEB SOLN NEB SCH ×4 (00:26→18:22)
--- NOTE | 2019-01-23 03:35 | NUR ---
Opening Shift Note Assumed care of patient, resting in bed with eyes closed. Patient is aphasic and not alert. Patient was repositioned with HOB greater then 30 degrees. No S/S of distress/SOB. Bed locked in lowest position, side rails up x2, and call light within reach. Will continue to monitor for changes Q1hr and PRN.
[2019-01-23] MEDS: CIPROFLOXACIN 400MG/200ML 200 ML IV SCH ×3 (04:56→22:00)
[2019-01-23 05:04] VITALS: BP 127/68
[2019-01-23 05:06] LABS: Basophils # (auto) 0 uL; Basophils % (auto) 0.3 % (0.0-2.0); Eosinophils # (auto) 0.1 uL; Eosinophils % (auto) 1.2 % (0.0-7.0); Hematocrit 32.9 % (41.0-53.0); Hemoglobin 11.2 g/dL (13.5-17.5); Lymphocytes # (auto) 1.2 uL; Mean Corpuscular Hemoglobin 29.6 pg (28.0-32.0); Mean Corpuscular Hgb Conc. 34.2 g/dL (32.0-36.0); Mean Corpuscular Volume 86.6 fL (80.0-100.0); Monocytes # (auto) 0.8 uL; Monocytes % (auto) 9.4 % (0.0-12.0); Neutrophils # (auto) 6.6 uL; Neutrophils % (auto) 75.1 % (37.0-80.0); Platelet Count (auto) 173 10^3/uL (140-450); Red Cell Distribution Width 14.6 % (11.8-14.3); White Blood Cell 8.8 10^3/uL (4.4-10.8)
[2019-01-23] MEDS ORDERED: SODIUM CHLORIDE 0.9 % NEB SOLN 3ML NEB ONE ×2 (05:21→10:36)
[2019-01-23 05:26] LABS: BUN/Creatinine Ratio 32.9; Calcium 8.5 mg/dL (8.5-10.1); Potassium 3.4 mmol/L (3.5-5.1)
--- NOTE | 2019-01-23 07:55 | NUR ---
OPENING NOTE Assumed care of patient from [facility] RN, Jerilyn Reyna Patient opened eyes to voice but is aphasic. No S/S of distress/SOB or pain. Trach collar in place, connected to 10L O2. Duff catheter intact/ patent and hung below bed. SCD's and marisabel boots to bilateral lower extremities. Peg tube to left upper abdomen, infusing Jevity @ 60mls/hr. Speciality bed in lowest, locked position with side rails up x2. Fall/aspiration precautions in place and call light within reach. Will continue to monitor for changes Q1hr and PRN.
[2019-01-23 09:00] VITALS: BP 135/70
[2019-01-23] MEDS: FUROSEMIDE 40 MG TAB GT SCH (09:32)
[2019-01-23] MEDS: OMEPRAZOLE 20MG/10ML ORAL SUSP GT SCH (09:33)
[2019-01-23] MEDS: LOSARTAN POTASSIUM 50 MG TAB PEG SCH (09:33)
[2019-01-23] MEDS: amLODIPine BESYLATE 5 MG TAB PEG SCH (09:33)
[2019-01-23] MEDS: ENOXAPARIN SOD 40 MG/0.4 ML SYRINGE SC SCH (09:34)
[2019-01-23] MEDS: MUPIROCIN 2% OINT 15gm or 22gm TOP SCH ×2 (09:34→22:00)
[2019-01-23] MEDS: CYANOCOBALAMIN 500 MCG TAB PEG SCH (09:34)
[2019-01-23] MEDS ORDERED: POTASSIUM EFFERVESENT TAB 25 MEQ GT ONE (10:30)
--- NOTE | 2019-01-23 12:20 | NUR ---
PEG TUBE 5mls aspirated from peg tube. 100 mL of free water given. HOB is greater than 45 degrees and suction at bedside. Will continue to monitor.
[2019-01-23 13:05] VITALS: BP 135/80
--- NOTE | 2019-01-23 15:50 | NUR ---
re-assessment Patient is now eligible for Medi-yoseph. Per Tree Casey from [facility] patient will be disenrolled with his private insurance on 03/21/19. Per Tree he has done a letter for patient for social security and disability, but it can take 180 days. Per patients daughter Soraya family still wants placement for patient. [facility] Per Erick he will look over new clinicals and give Yadira a call if he accepted patient for today. Addendum: 01/23/19 at 1552 by Heaven GIANG Amended: Links added.
[2019-01-23 16:27] VITALS: BP 125/71
--- NOTE | 2019-01-23 16:44 | NUR ---
FAMILY Patient's family at bedside.
--- NOTE | 2019-01-23 18:32 | NUR ---
RT NOTE PT WAS GIVEN BREATHING TX AND DEEP TRACH SUCTION. PT TOLERATED BOTH WELL. MODERATE AMOUNT OF THICK WITH SECRETIONS RETURNED WITH SUCTION. FAMILY AT BEDSIDE.
--- NOTE | 2019-01-23 19:30 | NUR ---
Opening Shift Note Assumed care of patient, awake. Non verbal. Turning q2. Duff in place. Tracheostomy intact. Suction at bedside. Family at bedside No S/S of distress/SOB or pain. Instructed on POC and to call .for assist PRN, will continue to monitor for changes Q1hr and PRN.
[2019-01-23] MEDS: TOBRAMYCIN IV SCH (20:36)
[2019-01-23] MEDS: D5W 5% IV SCH (20:36)
[2019-01-23] MEDS: ATORVASTATIN 20 MG TAB PEG SCH (22:00)
--- NOTE | 2019-01-23 22:13 | NUR ---
RT NOTE PT PLACED ON CONT POX TO MONITOR SPO2.
[2019-01-23 22:15] VITALS: BP 136/55
[2019-01-24] MEDS: ALBUTEROL SULF 2.5 MG/0.5ML(0.5%) NEB SOLN NEB SCH ×4 (00:06→18:18)
[2019-01-24 00:51] VITALS: BP 136/55
[2019-01-24] MEDS: ACCU-CHEK COMFORT CURVE STRIP VI SCH ×6 (04:00→20:00)
[2019-01-24] MEDS: InsuLIN REG 1unit/0.01ml Soln (100units/ml) SC SCH ×7 (04:00→20:30)
[2019-01-24 04:51] VITALS: BP 143/78
[2019-01-24] MEDS: FREE WATER GT SCH ×4 (05:56→18:02)
[2019-01-24] MEDS: CIPROFLOXACIN 400MG/200ML 200 ML IV SCH ×3 (05:56→21:52)
[2019-01-24 09:00] VITALS: BP 159/89
[2019-01-24] MEDS: MUPIROCIN 2% OINT 15gm or 22gm TOP SCH ×2 (10:24→21:53)
[2019-01-24] MEDS: LOSARTAN POTASSIUM 50 MG TAB PEG SCH (10:41)
[2019-01-24] MEDS: OMEPRAZOLE 20MG/10ML ORAL SUSP GT SCH (10:41)
[2019-01-24] MEDS: FUROSEMIDE 40 MG TAB GT SCH (10:41)
[2019-01-24] MEDS: CYANOCOBALAMIN 500 MCG TAB PEG SCH (10:42)
[2019-01-24] MEDS: amLODIPine BESYLATE 5 MG TAB PEG SCH (10:42)
[2019-01-24] MEDS: ENOXAPARIN SOD 40 MG/0.4 ML SYRINGE SC SCH (10:42)
[2019-01-24 13:00] VITALS: BP 160/89
--- NOTE | 2019-01-24 14:48 | NUR ---
Nutrition Follow-up Notes Wt.: 121.0 kg today Pt's on vent via trach, awake, aphasic, no immediate family member at bedside during rounds this morning. Pt's no signs of distress noted earlier, currently NPO with EN support with Glucerna @ 60 ml/hr via PEG tube providing 1728 kcal, 76 gms proteins and 1159 ml free water, tolerates feeding, no residuals noted this morning, per nursing. Pt with adequate EN support d/t mod initiation rate delivery of concentrated formula aeb current EN infusion meets 77% to 86% of est caloric needs and 72% to 94% proteins needs. Est. Needs reassessed based on IBW (81 kg): 2184-1461 kcal (25-28 kcal/kgBW), 81-105 gms pro (1.0-1.3 gms/kgBW d/t severe hypoalbuminemia). Will continue to monitor pertinent labs and reassess nutrient need prn Labs: No new labs today POC Gluc 167 H; 01/23/19 Gluc 145 H, BUn 24 H, K 3.4 L Skin: Duong scale 9, high risk, pt's medial abdomen incision, right scalp incision dry and intact per wildlife biology internship. Pls refer to latest vulnerability assessment analyst's notes for further details re: tx plans. GI: Pt had 1 BM 01/16/19 per wildlife biology internship. PES: Increased nutrient needs r/t acute/chronic medical condition aeb with trach, severe hypoalbuminemia, NPO with EN support via PEG tube Altered nutrition related lab values r/t current/chronic medical condition aeb elev BUN, hypocalcemia, hyperglycemia and severe hypoalb Will continue to monitor NPO status, EN tolerance, pertinent labs and weight trend. F/u in 2 to 3 days. Rec.: 1.) Consider gradual increase on feeding rate of Glucerna 1.2 Roberto to 70 ml/hr goal rate via PEG tube as tolerated when medically appropriate. 2.) Consider daily MVI with minerals and Asc acid 500 mgs BID prn. 3.) If Albumin continues trending down, consider Prostat 1 pkt BID. 4.) Refer pt's family to CDE/RD for further nutrition education and weight monitoring upon discharge. 5.) Continue current plan of care.
[2019-01-24 16:21] VITALS: BP 151/86
--- NOTE | 2019-01-24 17:33 | NUR ---
D/C Planning Per SS consult for SNF placement. [facility] Ph:( [phone]) Fax:) faxed medical records. Per Neftali from [facility] patient has been accepted however, they are pending authorization in order for him to provided with a room # and accepting Md doctor. Informed SS Arely. Arely advised me to arrange transportation on will call. Contact [facility] Ph:( [phone]) Fax:( [phone]) faxed [facility] medical form requesting transport to be on will call with ACLS. Per Olga from [facility] form was received and transportation will be on will call with ACLS.
[2019-01-24] MEDS: ATORVASTATIN 20 MG TAB PEG SCH (21:52)
[2019-01-24 22:00] VITALS: BP 120/80
[2019-01-25] MEDS: ALBUTEROL SULF 2.5 MG/0.5ML(0.5%) NEB SOLN NEB SCH ×4 (00:05→18:19)
[2019-01-25] MEDS: ACCU-CHEK COMFORT CURVE STRIP VI SCH ×6 (04:00→20:00)
[2019-01-25] MEDS: InsuLIN REG 1unit/0.01ml Soln (100units/ml) SC SCH ×6 (05:00→19:59)
[2019-01-25 06:00] VITALS: BP_SYST 101; BP_SYST 131; BP_DIAS 63; BP_DIAS 86
[2019-01-25] MEDS: CIPROFLOXACIN 400MG/200ML 200 ML IV SCH ×3 (06:02→22:18)
[2019-01-25] MEDS: FREE WATER GT SCH ×4 (06:04→17:32)
[2019-01-25 09:00] VITALS: BP 147/81
[2019-01-25] MEDS: MUPIROCIN 2% OINT 15gm or 22gm TOP SCH ×2 (10:20→22:19)
[2019-01-25] MEDS: D5W 5% IV SCH (10:28)
[2019-01-25] MEDS: TOBRAMYCIN IV SCH (10:28)
[2019-01-25] MEDS: OMEPRAZOLE 20MG/10ML ORAL SUSP GT SCH (10:46)
[2019-01-25] MEDS: ENOXAPARIN SOD 40 MG/0.4 ML SYRINGE SC SCH (10:46)
[2019-01-25] MEDS: CYANOCOBALAMIN 500 MCG TAB PEG SCH (10:46)
[2019-01-25] MEDS: FUROSEMIDE 40 MG TAB GT SCH (10:58)
[2019-01-25] MEDS: LOSARTAN POTASSIUM 50 MG TAB PEG SCH (10:59)
[2019-01-25] MEDS: amLODIPine BESYLATE 5 MG TAB PEG SCH (10:59)
--- NOTE | 2019-01-25 12:44 | NUR ---
WOUND CARE NOTE: Wound care in to see patient for reevaluation of wounds and skin integrity monitoring. Patient continue resting on air bed in Rm. 202. Patient is awake and non- responsive. His current Duong score is 9. Patient appears to in no pain using [place] Faces pain scale, however mild pain noted upon turning. Skin assessment done with the assistance of patient's nurse, EDWINA Booth. Stapled incision to Rt anterior scalp, behind Rt ear/scalp and abdominal area remain clean and dry with intact chip, left open to air. Patient's sacrum continue to display 5x7cm evolving DTI. Wound is open to full thickness with no measurable depth. Wound bed is pink, red with yellow slough, ritika wound is dark red, purple,minimal serous drainage noted, no odor noted. Ritika care given, applied Thera honey gel to open wound bed, barrier cream to lower buttocks and covered sacral wound with Opti foam sacral dressing. Repositioned patient for comfort facing his Lt. side, redistributed pressure points with pillows. Patient tolerated well. New photograph of sacral wound are taken for reference. Patient continue on tube feeding and Dietary is on board. RECOMMENDATION: Nursing to continue BID/PRN cleaning dressing change to sacrum per MD order, continuation of all wound care orders prescribed by MD, continue with skin/wound plan of care, continue monitoring by wound care while patient is hospitalized. Addendum: 01/25/19 at 1753 by Shikha Rogers RN Amended: Links added.
[2019-01-25 13:00] VITALS: BP 139/84
--- NOTE | 2019-01-25 14:02 | NUR ---
RIGHT UPPER ARM US POSITIVE FOR DVT. ATTEMPTED TO REACH DR Dave SIMMONS BUT PHONE LINE BUSY PER PBX.
[2019-01-25 16:24] VITALS: BP 162/92
[2019-01-25 19:01] LABS: BUN/Creatinine Ratio 41.4; Calcium 8.5 mg/dL (8.5-10.1); Potassium 3.6 mmol/L (3.5-5.1)
--- NOTE | 2019-01-25 19:30 | NUR ---
Opening shift note: Family at bedside. Patient eyes open, non verbal. Trach collar in place, suction at bedside.Oxygen 98% on continuous pulse ox. Skin clammy. Duff in place and draining light reina urine. Right arm very edematous down to fingers. Midline still in place not using at this time. Will remove and attempt new IV. Left hand +2 edema. Elevating on pillows. Cleaned pt up. Small BM. Turning q2. Continuing to monitor. Air mattress in place
[2019-01-25 21:57] VITALS: BP 121/71
[2019-01-25] MEDS ORDERED: ENOXAPARIN SOD 120 MG/0.8 ML SYRINGE SC SCH (22:00)
[2019-01-25] MEDS: ATORVASTATIN 20 MG TAB PEG SCH (22:18)
[2019-01-26] MEDS: ALBUTEROL SULF 2.5 MG/0.5ML(0.5%) NEB SOLN NEB SCH ×4 (00:09→19:15)
[2019-01-26] MEDS: ACCU-CHEK COMFORT CURVE STRIP VI SCH ×6 (04:00→20:00)
[2019-01-26] MEDS: InsuLIN REG 1unit/0.01ml Soln (100units/ml) SC SCH ×6 (04:00→20:30)
[2019-01-26 05:00] VITALS: BP 127/77
--- NOTE | 2019-01-26 05:00 | NUR ---
New IV started to Left FA 22 G saline locked. Midline removed to VERN due to DVT and arm very edematous. Blister to Right upper arm likely due to the tape from IV. No drainage noted. Dry and intact. Turning q2.
[2019-01-26] MEDS: CIPROFLOXACIN 400MG/200ML 200 ML IV SCH ×3 (06:00→22:00)
[2019-01-26] MEDS: FREE WATER GT SCH ×4 (06:00→18:14)
--- NOTE | 2019-01-26 07:31 | NUR ---
Opening Shift Note Assumed care of patient, awake, aphasic, and eyes open wandering. Trach collar in place with o2 at 9L and oxygen saturation at 99%. Duff catheter patent and draining with gravity with dark reina urine. Turn Q2. Specialty mattress in place. No S/S of distress/SOB or pain. Bed in lowest and locked position with side rails up x2 and call light within reach. Instructed family on POC and to call for assist PRN, will continue to monitor for changes Q1hr and PRN.
--- NOTE | 2019-01-26 08:10 | NUR ---
FAMILY AT BEDSIDE. DR. SIMMONS DISCUSSING POC WITH PATIENTS DAUGHTER.
[2019-01-26 08:56] VITALS: BP 154/90
[2019-01-26] MEDS: ENOXAPARIN SOD 40 MG/0.4 ML SYRINGE SC SCH (10:03)
[2019-01-26] MEDS: CYANOCOBALAMIN 500 MCG TAB PEG SCH (10:03)
[2019-01-26] MEDS: amLODIPine BESYLATE 5 MG TAB PEG SCH (10:04)
[2019-01-26] MEDS: LOSARTAN POTASSIUM 50 MG TAB PEG SCH (10:04)
[2019-01-26] MEDS: FUROSEMIDE 40 MG TAB GT SCH (10:04)
[2019-01-26] MEDS: MUPIROCIN 2% OINT 15gm or 22gm TOP SCH ×2 (10:06→23:00)
[2019-01-26] MEDS: OMEPRAZOLE 20MG/10ML ORAL SUSP GT SCH (10:30)
[2019-01-26 12:55] VITALS: BP 115/87
--- NOTE | 2019-01-26 15:00 | NUR ---
WOUND DRESSING CHANGED DRESSING CHANGE ON SACRAL AREA, WOUND CLEANSED WITH WOUND CLEANSER, PAT DRY, THERAHONEY APPLIED AND OPTIFOAM APPLIED. MEDIAL ABDOMINAL DRESSING CHANGED, BACTROBAN OINTMENT APPLIED AND OPTIFOAM APPLIED.
[2019-01-26 15:48] LABS: Basophils # (auto) 0 uL; Basophils % (auto) 0.6 % (0.0-2.0); Eosinophils # (auto) 0.1 uL; Eosinophils % (auto) 1.1 % (0.0-7.0); Hematocrit 33.6 % (41.0-53.0); Hemoglobin 11.3 g/dL (13.5-17.5); Lymphocytes # (auto) 1.1 uL; Lymphocytes % (auto) 12.8 % (10.0-50.0); Mean Corpuscular Hemoglobin 29.2 pg (28.0-32.0); Mean Corpuscular Hgb Conc. 33.7 g/dL (32.0-36.0); Mean Corpuscular Volume 86.6 fL (80.0-100.0); Monocytes # (auto) 0.7 uL; Monocytes % (auto) 8.3 % (0.0-12.0); Neutrophils # (auto) 6.7 uL; Neutrophils % (auto) 77.2 % (37.0-80.0); Nucleated Red Blood Cells % 0.1 %; Platelet Count (auto) 164 10^3/uL (140-450); Red Blood Cells 3.88 10^6/uL (4.5-5.90); Red Cell Distribution Width 14.2 % (11.8-14.3); White Blood Cell 8.7 10^3/uL (4.4-10.8)
[2019-01-26 16:03] LABS: BUN/Creatinine Ratio 41.9; Calcium 8.4 mg/dL (8.5-10.1); Potassium 3.5 mmol/L (3.5-5.1)
[2019-01-26 17:00] VITALS: BP 130/75
[2019-01-26 21:04] VITALS: BP 130/75
[2019-01-26 21:38] VITALS: BP 136/74
[2019-01-26] MEDS: D5W 5% IV SCH (22:30)
[2019-01-26] MEDS: TOBRAMYCIN IV SCH (22:30)
[2019-01-26] MEDS: ATORVASTATIN 20 MG TAB PEG SCH (23:00)
[2019-01-27] MEDS: ALBUTEROL SULF 2.5 MG/0.5ML(0.5%) NEB SOLN NEB SCH ×5 (00:26→23:32)
[2019-01-27] MEDS: ACCU-CHEK COMFORT CURVE STRIP VI SCH ×6 (04:00→20:00)
[2019-01-27] MEDS: InsuLIN REG 1unit/0.01ml Soln (100units/ml) SC SCH ×6 (04:00→22:48)
[2019-01-27 04:55] VITALS: BP 109/70
[2019-01-27] MEDS: CIPROFLOXACIN 400MG/200ML 200 ML IV SCH ×3 (06:03→22:46)
[2019-01-27] MEDS: FREE WATER GT SCH ×4 (06:03→17:42)
[2019-01-27 06:35] LABS: Basophils # (auto) 0 uL; Basophils % (auto) 0.2 % (0.0-2.0); Eosinophils # (auto) 0.1 uL; Eosinophils % (auto) 1.4 % (0.0-7.0); Hematocrit 32.5 % (41.0-53.0); Hemoglobin 11.1 g/dL (13.5-17.5); Lymphocytes % (auto) 13.8 % (10.0-50.0); Mean Corpuscular Hemoglobin 29.5 pg (28.0-32.0); Mean Corpuscular Hgb Conc. 34.2 g/dL (32.0-36.0); Mean Corpuscular Volume 86.3 fL (80.0-100.0); Monocytes # (auto) 0.7 uL; Monocytes % (auto) 9.2 % (0.0-12.0); Neutrophils # (auto) 5.7 uL; Neutrophils % (auto) 75.4 % (37.0-80.0); Platelet Count (auto) 166 10^3/uL (140-450); Red Blood Cells 3.77 10^6/uL (4.5-5.90); Red Cell Distribution Width 14.1 % (11.8-14.3); White Blood Cell 7.6 10^3/uL (4.4-10.8)
[2019-01-27 07:03] LABS: Potassium 3.5 mmol/L (3.5-5.1)
[2019-01-27 07:10] LABS: BUN/Creatinine Ratio 36.1; Calcium 8.1 mg/dL (8.5-10.1)
--- NOTE | 2019-01-27 07:28 | NUR ---
Opening Shift Note Assumed care of patient, patient laying in bed in semi-fowlers position. Patient is on 10 L with even and unlabored respirations. Trach is present and Pt's oxygen saturation is 100% at present time. No S/S of distress/SOB or pain at this time. Bed is in lowest position, wheels are locked, side rails up x2, bed alarm set for safety and call light is within reach. Peg tube in satisfactory place with Patient reposition and turned for comfort. Oral care and suction attempted, patient biting down on mouth swab and [place]. Will attempt mouth care again at later time. Will continue to monitor for changes Q1hr and PRN.
[2019-01-27 09:00] VITALS: BP 124/76
[2019-01-27] MEDS: ENOXAPARIN SOD 40 MG/0.4 ML SYRINGE SC SCH (09:36)
[2019-01-27] MEDS: amLODIPine BESYLATE 5 MG TAB PEG SCH (09:38)
[2019-01-27] MEDS: FUROSEMIDE 40 MG TAB GT SCH (09:38)
[2019-01-27] MEDS: LOSARTAN POTASSIUM 50 MG TAB PEG SCH (09:39)
[2019-01-27] MEDS: CYANOCOBALAMIN 500 MCG TAB PEG SCH (09:39)
[2019-01-27] MEDS: OMEPRAZOLE 20MG/10ML ORAL SUSP GT SCH (09:40)
[2019-01-27] MEDS: MUPIROCIN 2% OINT 15gm or 22gm TOP SCH (09:42)
--- NOTE | 2019-01-27 11:45 | NUR ---
PATIENT COMFORT PATIENT REPOSITION AND TURNED FOR COMFORT. ORAL CARE PERFORMED AT PRESENT TIME. WILL CONTINUE TO MONITOR Q1H AND PRN.
[2019-01-27] MEDS: ERGOCALCIFEROL 50,000 UNIT(1.25MG) CAP PO SCH (11:56)
--- NOTE | 2019-01-27 12:05 | NUR ---
Respiratory note: COOL AEROSOL FIO2 TITRATED DOWN TO 28% PER DR. DIEHL;S REQUEST. FLOW DECREASED TO 5LPM.
[2019-01-27 13:00] VITALS: BP 140/90
--- NOTE | 2019-01-27 13:45 | NUR ---
PATIENT COMFORT PATIENT TURNED AND REPOSITIONED FOR COMFORT. DEEP TRACHEAL SUCTION PERFORMED WITH STERILE TECHNIQUE. PATIENT TOLERATED WELL. WILL CONTINUE TO MONITOR Q1 AND PRN.
--- NOTE | 2019-01-27 14:29 | NUR ---
Nutrition Follow-up Notes Wt.: ?79.2 kg based on bed scale today. Noted ?41.8 kg weight loss in last 3 days likely d/t ? fluid loss aeb negative I & Os for past few days. Pt's on trach collar, aphasic, no immediate family member at bedside when rounded this morning. Pt's no signs of distress noted earlier, currently NPO with EN support with Glucerna @ 50 ml/hr via PEG tube providing 1440 kcal, 72 gms proteins and 866 ml free water, tolerates feeding, no residuals noted this morning, per nursing. Pt with inadequate EN support d/t low initiation rate delivery of concentrated formula aeb current EN infusion meets 64% to 72% of est caloric needs and 69% to 88% proteins needs. Followec up RD's recommendation, per MD's approval. Est. Needs reassessed based on IBW (81 kg): 7461-0404 kcal (25-28 kcal/kgBW), 81-105 gms pro (1.0-1.3 gms/kgBW d/t severe hypoalbuminemia). Will continue to monitor pertinent labs and reassess nutrient need prn Labs: Gluc 132 H, CO2 35 H, BUN 26 H, Ca 8.1 L Skin: Duong scale 9, high risk, pt's sacrum pressure ulcer, medial abdomen incision, right scalp incision dry and intact per brass chaser. 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 GI: Pt had 1 BM 01/16/19 per brass chaser. PES: Increased nutrient needs r/t acute/chronic medical condition aeb with trach, severe hypoalbuminemia, NPO with EN support via PEG tube Altered nutrition related lab values r/t current/chronic medical condition aeb elev BUN, hypocalcemia, hyperglycemia and severe hypoalb Will continue to monitor NPO status, EN tolerance, pertinent labs and weight trend. F/u in 2 to 3 days. Rec.: 1.) Consider gradual increase on feeding rate of Glucerna 1.2 Roberto to 70 ml/hr goal rate via PEG tube as tolerated when medically appropriate. 2.) Pls enter order for daily MVI with minerals and Asc acid 500 mgs BID, already e-signed approved by . 3.) If Albumin continues trending down, consider Prostat 1 pkt BID. 4.) Consider to recheck and record pt's actual body weight based on bed scale regularly. 5.) Refer pt's family to CDE/RD for further nutrition education and weight monitoring upon discharge. 6.) Continue current plan of care.
--- NOTE | 2019-01-27 15:45 | NUR ---
DRESSING CHANGE PERFORMED DRESSING TO SACRUM AND MEDIAL ABDOMEN CHANGED. WOUNDS CLEANSED WITH WOUND TERRAZZO TILE SETTER, PATTED DRY, HONEY APPLIED AND COVERED WITH OPTIFOAM. PATIENT TOLERATED WELL. WILL CONTINUE TO MONITOR Q1H AND PRN.
[2019-01-27 17:00] VITALS: BP 128/80
--- NOTE | 2019-01-27 19:30 | NUR ---
Opening Shift Note Assumed care of patient, awake and non verbal. Unable to track with his eyes. No S/S of distress/SOB or pain. Trach in place with humidified oxygen@ 28%. IV patent to L wrist. RigtarPeg tube in place and infusing jevity per orders. Instructed on POC and to call for assist PRN, will continue to monitor for changes Q1hr and PRN. Addendum: 01/28/19 at 0555 by BAYRON PHAM RN Right arm > left arm swelling. Air mattress. Turn q2 with pillows.
[2019-01-27 21:47] VITALS: BP 115/70
[2019-01-27] MEDS: ATORVASTATIN 20 MG TAB PEG SCH (22:46)
[2019-01-28] MEDS: InsuLIN REG 1unit/0.01ml Soln (100units/ml) SC SCH ×5 (00:45→23:26)
[2019-01-28] MEDS: ACCU-CHEK COMFORT CURVE STRIP VI SCH ×5 (04:00→23:21)
[2019-01-28 05:26] VITALS: BP 100/60
[2019-01-28] MEDS: ALBUTEROL SULF 2.5 MG/0.5ML(0.5%) NEB SOLN NEB SCH ×4 (05:33→18:21)
[2019-01-28] MEDS: FREE WATER GT SCH ×5 (06:00→23:21)
[2019-01-28] MEDS: CIPROFLOXACIN 400MG/200ML 200 ML IV SCH ×3 (06:00→21:05)
[2019-01-28 09:00] VITALS: BP 119/65
--- NOTE | 2019-01-28 09:45 | NUR ---
Dressing changed as ordered dressing changed to sacrum as ordered, patient tolerated well. No s/s of pain noted. Pressure areas off loaded on pillows and bilat feet on pose boots. Will cont to monitor.
[2019-01-28] MEDS: FUROSEMIDE 40 MG TAB GT SCH (10:00)
[2019-01-28] MEDS ORDERED: POTASSIUM EFFERVESENT TAB 25 MEQ GT ONE (10:30)
[2019-01-28] MEDS ORDERED: FUROSEMIDE 20 MG/2 ML VIAL IV ONE (10:30)
--- NOTE | 2019-01-28 10:30 | NUR ---
Spoke to MD MD Resendiz at bedside, aware of patient's status. New orders received for lasix 20meq IV once instead of PO dose at this time, new orders for accucheck q6hr, potassium eff., will medicate as ordered and cont care
[2019-01-28] MEDS: ENOXAPARIN SOD 40 MG/0.4 ML SYRINGE SC SCH (10:54)
[2019-01-28] MEDS: OMEPRAZOLE 20MG/10ML ORAL SUSP GT SCH (10:54)
[2019-01-28] MEDS: CYANOCOBALAMIN 500 MCG TAB PEG SCH (10:55)
[2019-01-28] MEDS: D5W 5% IV SCH (11:30)
[2019-01-28] MEDS: TOBRAMYCIN IV SCH (11:30)
[2019-01-28 12:51] VITALS: BP 145/93
[2019-01-28 17:00] VITALS: BP 126/80
--- NOTE | 2019-01-28 19:17 | NUR ---
Patient care endorsed patient laying in bed in no acute distress noted. Patient's at bedside. Aspiration precs in place. Care endorsed to Be amaya.
--- NOTE | 2019-01-28 20:00 | NUR ---
OPENING SHIFT NOTE RECEIVED REPORT FROM DAYSHIFT RN. ASSUMING ROLE OF CARE OF PATIENT AT THIS TIME. IS AT BEDSIDE. PATIENT SHOWING NO SIGN OF DISTRESS AT THIS TIME. TRACH COLLAR SECURED AND PEG TUBE INTACT AND JEVITY RUNNING. EXPLAINED PLAN OF CARE TO AND VERBALIZED UNDERSTANDING. BED LOWERED, AND PATIENT WILL BE ROUNDED ON EVERY HOUR AND NEEDED.
[2019-01-28] MEDS: ATORVASTATIN 20 MG TAB PEG SCH (21:05)
[2019-01-28 22:17] VITALS: BP 142/67
[2019-01-29] VITALS (7 sets, daily range): BP systolic 140–162; BP diastolic 77–98
[2019-01-29] MEDS: ALBUTEROL SULF 2.5 MG/0.5ML(0.5%) NEB SOLN NEB SCH ×4 (00:08→20:23)
[2019-01-29] MEDS: CIPROFLOXACIN 400MG/200ML 200 ML IV SCH ×3 (05:16→21:24)
[2019-01-29] MEDS: FREE WATER GT SCH ×4 (05:16→23:22)
[2019-01-29] MEDS: InsuLIN REG 1unit/0.01ml Soln (100units/ml) SC SCH ×4 (05:17→23:23)
[2019-01-29] MEDS: ACCU-CHEK COMFORT CURVE STRIP VI SCH ×4 (05:17→23:22)
[2019-01-29 07:12] LABS: Albumin 2.3 g/dL (3.4-5.0); BUN/Creatinine Ratio 27.3; Bilirubin, Total 0.5 mg/dL (0.2-1.0); Calcium 8.3 mg/dL (8.5-10.1); Total Protein 6.8 g/dL (6.4-8.2)
--- NOTE | 2019-01-29 07:30 | NUR ---
RECEIVED REPORT AND ASSUMED CARE OF PT. PT RESTING IN BED. NO S/S ACUTE DISTRESS NOTED. PT APHASIC. PEG TUBE IN PLACE. TRACH IN PLACE. UPDATE PT WITH POC. BED AT LOWEST POSITION. CALL LIGHT AND BELONGINGS WITHIN REACH. WILL CONT TO MONITOR.
[2019-01-29] MEDS: CYANOCOBALAMIN 500 MCG TAB PEG SCH (11:07)
[2019-01-29] MEDS: FUROSEMIDE 40 MG TAB GT SCH (11:07)
[2019-01-29] MEDS: ENOXAPARIN SOD 40 MG/0.4 ML SYRINGE SC SCH (11:08)
[2019-01-29] MEDS: OMEPRAZOLE 20MG/10ML ORAL SUSP GT SCH (11:13)
[2019-01-29] MEDS ORDERED: POTASSIUM EFFERVESENT TAB 25 MEQ GT ONE (11:30)
[2019-01-29] MEDS: hydrALAZINE HCL 20 MG/ML VL IV PRN (12:41)
--- NOTE | 2019-01-29 14:58 | NUR ---
Nutrition Follow-up Notes Wt.: 79.2 kg Pt's on trach collar, aphasic, no immediate family member at bedside when rounded this morning. Pt's no signs of distress noted earlier, currently NPO with EN support with Glucerna @ 50 ml/hr via PEG tube providing 1440 kcal, 72 gms proteins and 866 ml free water, tolerates feeding, no residuals noted this morning, per nursing. Pt with inadequate EN support d/t low initiation rate delivery of concentrated formula aeb current EN infusion meets 64% to 72% of est caloric needs and 69% to 88% proteins needs. Est. Needs reassessed based on IBW (81 kg): 4907-9440 kcal (25-28 kcal/kgBW), 81-105 gms pro (1.0-1.3 gms/kgBW d/t severe hypoalbuminemia). Will continue to monitor pertinent labs and reassess nutrient need prn Labs: Gluc 131 H, CO2 34 H, BUN 26 H, Ca 8.3 L, ALB 2.3 L. Skin: Duong scale 10, high risk, pt's sacrum pressure ulcer, medial abdomen incision, right scalp incision dry and intact per supervisor testing. 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 GI: Pt had 1 BM 01/27/19 per supervisor testing. PES: Increased nutrient needs r/t acute/chronic medical condition aeb with trach, severe hypoalbuminemia, NPO with EN support via PEG tube Altered nutrition related lab values r/t current/chronic medical condition aeb elev BUN, hypocalcemia, hyperglycemia and severe hypoalb Will continue to monitor NPO status, EN tolerance, pertinent labs and weight trend. F/u in 2 to 3 days. Rec.: 1.) Consider gradual increase on feeding rate of Glucerna 1.2 Roberto to 70 ml/hr goal rate via PEG tube as tolerated when medically appropriate. 2.) Pls enter order for daily MVI with minerals and Asc acid 500 mgs BID, already e-signed approved by . 3.) If Albumin continues trending down, consider Prostat 1 pkt BID. 4.) Consider to recheck and record pt's actual body weight based on bed scale regularly. 5.) Refer pt's family to CDE/RD for further nutrition education and weight monitoring upon discharge. 6.) Continue current plan of care.
--- NOTE | 2019-01-29 18:20 | NUR ---
INTAKE FROM PEG TUBE FEEDING,550ML. FREE WATER 200ML. RESIDUAL 10ML.
--- NOTE | 2019-01-29 19:18 | NUR ---
PT RESTING IN BED. NO S/S ACUTE DISTRESS NOTED. ENDORSED CARE TO NIGHT NURSE.
--- NOTE | 2019-01-29 20:54 | NUR ---
BUTTON STATION WORKER FROM [facility] MATTRESS AT STATION INFORMED BUTTON STATION WORKER OF ISSUE THAT OCCURRED WAS REPORTED. NO ISSUES OF NOW. PER BUTTON STATION WORKER, WILL REPLACE BED IF ISSUE COMES UP WHILE REP IS IN HOUSE. WILL CONTINUE TO MONITOR PATIENT.
[2019-01-29] MEDS: ATORVASTATIN 20 MG TAB PEG SCH (21:25)
[2019-01-30] MEDS: ALBUTEROL SULF 2.5 MG/0.5ML(0.5%) NEB SOLN NEB SCH ×4 (00:04→18:02)
--- NOTE | 2019-01-30 04:25 | NUR ---
IV removal IV DC'd with clean sterile technique, catheter fully intact. Pressure dressing applied to site. Patient tolerated well. IV insertion IV access obtained, via clean sterile technique by inserting 22 gauge catheter at LEFT FOREARM after 2 attempt(s). IV secured properly. No trauma to site. Patient tolerated well.
[2019-01-30 05:00] VITALS: BP 164/95
[2019-01-30] MEDS: CIPROFLOXACIN 400MG/200ML 200 ML IV SCH ×3 (05:24→21:26)
[2019-01-30] MEDS: FREE WATER GT SCH ×4 (05:31→23:25)
[2019-01-30] MEDS: ACCU-CHEK COMFORT CURVE STRIP VI SCH ×4 (05:32→23:17)
[2019-01-30] MEDS: InsuLIN REG 1unit/0.01ml Soln (100units/ml) SC SCH ×4 (05:32→23:18)
[2019-01-30 05:34] VITALS: BP 135/80
--- NOTE | 2019-01-30 07:30 | NUR ---
Opening Shift Note Assumed care of patient, patient laying in bed in semi-fowlers position. Patient is on 10 L with even and unlabored respirations. Trach is present and Pt's oxygen saturation is 99% at present time. No S/S of distress/SOB or pain at this time. Bed locked in lowest position, side rails up x2, bed alarm on for safety and call light is within reach. Patient repositioned and turned for comfort. Oral care and suction attempted, patient biting down on mouth swab and [place]. Will attempt mouth care again at later time. Will continue to monitor for changes Q1hr and PRN.
[2019-01-30 08:36] VITALS: BP 147/88
[2019-01-30] MEDS: OMEPRAZOLE 20MG/10ML ORAL SUSP GT SCH (11:20)
[2019-01-30] MEDS: FUROSEMIDE 40 MG TAB GT SCH (11:20)
[2019-01-30] MEDS: ENOXAPARIN SOD 40 MG/0.4 ML SYRINGE SC SCH (11:20)
[2019-01-30] MEDS: CYANOCOBALAMIN 500 MCG TAB PEG SCH (11:20)
--- NOTE | 2019-01-30 11:57 | NUR ---
Tele box Dc'd per orders Sent to ICU.
[2019-01-30 12:41] VITALS: BP 132/71
[2019-01-30 17:00] VITALS: BP 123/81
--- NOTE | 2019-01-30 17:00 | NUR ---
Bed bath provided with clean gown and linens. Abdominal wound and sacrum cleansed and dressing changed.
--- NOTE | 2019-01-30 20:00 | NUR ---
Opening Shift Note Assumed care of patient, awake and alert. No S/S of distress/SOB or pain. Instructed on POC and to call for assist PRN, will continue to monitor for changes Q1hr and PRN.Tracheostomy with oxygen in placed, no respiratory distress noted, at bed side,with continuos peg tube feeding Gevity T 60CC/hour.
--- NOTE | 2019-01-30 20:00 | NUR ---
Patient is non responsive, awake total care.
[2019-01-30] MEDS: ATORVASTATIN 20 MG TAB PEG SCH (21:26)
[2019-01-30] MEDS: hydrALAZINE HCL 20 MG/ML VL IV PRN (21:51)
[2019-01-30 22:00] VITALS: BP 175/96
[2019-01-30] MEDS: Glucerna 1.2 Cal 1Liter BOTTLE GT SCH (22:53)
[2019-01-31] MEDS: ALBUTEROL SULF 2.5 MG/0.5ML(0.5%) NEB SOLN NEB SCH ×3 (00:11→11:00)
[2019-01-31 05:00] VITALS: BP 139/75
[2019-01-31] MEDS: CIPROFLOXACIN 400MG/200ML 200 ML IV SCH ×2 (05:24→14:00)
[2019-01-31] MEDS: ACCU-CHEK COMFORT CURVE STRIP VI SCH ×2 (05:25→12:00)
[2019-01-31] MEDS: InsuLIN REG 1unit/0.01ml Soln (100units/ml) SC SCH ×2 (05:25→12:00)
[2019-01-31] MEDS: FREE WATER GT SCH ×2 (05:26→12:00)
--- NOTE | 2019-01-31 07:12 | NUR ---
Report given to Jon Alvarez, patient is resting, no respiratory distress.
--- NOTE | 2019-01-31 07:40 | NUR ---
Opening Shift Note Assumed care of patient, patient laying in bed in semi-fowlers position. Patient is on 10 L NC. Trach is present and Pt's oxygen saturation is 98% at present time. No S/S of distress/SOB or pain noted at this time. Fall precautions in place per safety protocol. Will continue to monitor for changes Q1hr and PRN.
[2019-01-31 09:30] VITALS: BP 154/96
--- NOTE | 2019-01-31 10:00 | NUR ---
D/C Planning Per Arely Lindsay from [facility] has accepted patient to room [address] accepting MD Dr. Carranza. Contact [facility] Ph:) spoke to Coby. Advised Coby to arrange transportation between 12:00-12:30 via [email or web address] with RN assistance. Medical form was faxed to [facility] Ph:). Informed RN Rona. Followed up call to and daughter Ashley Ph:) and provided them with accepting facility. Addendum: 01/31/19 at 1456 by ARMINDA SMITH Amended: Links added.
[2019-01-31] MEDS: CYANOCOBALAMIN 500 MCG TAB PEG SCH (10:57)
[2019-01-31] MEDS: FUROSEMIDE 40 MG TAB GT SCH (10:57)
[2019-01-31] MEDS: ENOXAPARIN SOD 40 MG/0.4 ML SYRINGE SC SCH (10:58)
[2019-01-31] MEDS: OMEPRAZOLE 20MG/10ML ORAL SUSP GT SCH (11:21)
--- NOTE | 2019-01-31 12:00 | NUR ---
[facility] Patient is being transferred via ambulance, NO signs of distress, sob, or pain at this time.
[2019-01-31 12:08] VITALS: BP 154/96
[2019-01-31 12:59] VITALS: BP 149/84
== END 2019-01-31 13:15 | DRG 64 ==
LOC: ICU WEST 22:03 → DOU IN ICU 12-30 18:18 → TELE-CENTR 01-09 17:14 → CENTRAL 01-30 11:43
PROVIDERS: ADMIT Nurse Practitioner; ATTEND Internal Medicine
PROC: 5A1955Z Respiratory Ventilation, Greater than 96 Consecutive Hours (ICD-10-PCS; 2018-12-26)
PROC: 0DH63UZ Insertion of Feeding Device into Stomach, Percutaneous Approach (ICD-10-PCS; principal; 2019-01-07 13:45)
DX: I61.8 Other nontraumatic intracerebral hemorrhage (principal); J15.1 Pneumonia due to Pseudomonas; G82.50 Quadriplegia, unspecified; I63.9 Cerebral infarction, unspecified; N17.0 Acute kidney failure with tubular necrosis; G93.6 Cerebral edema; J96.20 Acute and chronic respiratory failure, unspecified whether with hypoxia or hypercapnia; J15.6 Pneumonia due to other Gram-negative bacteria; G93.40 Encephalopathy, unspecified; A41.52 Sepsis due to Pseudomonas; E87.0 Hyperosmolality and hypernatremia; N39.0 Urinary tract infection, site not specified; Z98.2 Presence of cerebrospinal fluid drainage device; E11.9 Type 2 diabetes mellitus without complications; E55.9 Vitamin D deficiency, unspecified; E88.09 Other disorders of plasma-protein metabolism, not elsewhere classified; D64.9 Anemia, unspecified; K29.80 Duodenitis without bleeding; H54.7 Unspecified visual loss; I11.9 Hypertensive heart disease without heart failure; E53.8 Deficiency of other specified B group vitamins; E66.9 Obesity, unspecified; Z79.899 Other long term (current) drug therapy; Z82.49 Family history of ischemic heart disease and other diseases of the circulatory system; Z83.3 Family history of diabetes mellitus; Z93.0 Tracheostomy status; Z68.23 Body mass index [BMI] 23.0-23.9, adult; K94.29 Other complications of gastrostomy; Y83.8 Other surgical procedures as the cause of abnormal reaction of the patient, or of later complication, without mention of misadventure at the time of the procedure; Y92.238 Other place in hospital as the place of occurrence of the external cause; Z79.84 Long term (current) use of oral hypoglycemic drugs
CPT/HCPCS: 36415; 36600; 43246; 70450; 71045; 80048; 80053; 80200; 81001; 82043; 82306; 82565; 82570; 82607; 82746; 82805; 82962; 83605; 83735; 84100; 84300; 84439; 84443; 85025; 85610; 85730; 87040; 87070; 87077; 87081; 87086; 87088; 87186; 87205; 93971; 94002; 94003; 94640; 94762; 97110; 97116; 97530; A4605; A4618; G0378; J0713; J1815; J2185; J2250; J3490; J7060